=== PATIENT | female | born 1950 | race Caucasian/White ===

== ENCOUNTER → 2016-07-07 | Outpatient (CLI) | payer MEDICARE, OTHER ==
--- NOTE | 2016-07-07 15:59 | EST ---
DATE OF SERVICE: 07/07/2016 AGE: 66Y SEX: F HT: 68 WT: 200 lbs. Protocol Bryant: Other: Stage: 1 Dur. of Exercise: 3:00 *Heart Rate Blood Pressure *Rest: 90 Rest: 178/66 * *Max. Achieved: 132 Maximum BP: 197/69 85% PMHR: 129 100% PMHR: 152 *METS: 4.6 INDICATIONS: Chest pain. MEDICATIONS: Naprosyn, Lisinopril, metformin, Neurontin. Patient was exercised for a total period of 3 minutes. A peak heart rate of 132 was achieved. Maximum blood pressure of 197/69 mmHg was noted. The test was terminated because patient got short of breath. Resting EKG shows normal sinus rhythm with normal MI interval and QRS duration and normal ST-T waves. No ST-segment depression suggestive of ischemia is noted. Patient did not complain of any anginal pain during the test. FINAL IMPRESSION: 1. This stress electrocardiogram is not suggestive of ischemia. 2. Patient's exercise tolerance is limited due to the symptoms of shortness of breath. 3. Patient did not complain of any anginal pain during the test.
--- NOTE | 2016-07-08 10:47 | MM ---
Reason for exam: screening (asymptomatic). Last mammogram was performed 1 year and 6 months ago. History: Patient is postmenopausal. Family history of breast cancer in daughter at age 37. Excisional biopsy of the left breast. Physical Findings: A clinical breast exam by your physician is recommended on an annual basis and results should be correlated with mammographic findings. MG 3D Screening Mammo W/Cad Bilateral CC and MLO view(s) were taken. Prior study comparison: January 12, 2015, bilateral MG screening mammo w CAD. December 26, 2013, bilateral MG screening mammo w CAD. October 05, 2012, bilateral digital screening mammo w/CAD. The breast tissue is heterogeneously dense. This may lower the sensitivity of mammography. Finding: There are typically benign round calcifications in both breasts. There is a chronic nodularity in the left breast. There is no discrete abnormality. ASSESSMENT: Benign, BI-RAD 2 RECOMMENDATION: Routine screening mammogram of both breasts in 1 year.
== END | disposition home or self-care (01) ==
LOC: RADMAMWWP 10:13
PROVIDERS: ATTEND Internal Medicine
DX: Z12.31 Encounter for screening mammogram for malignant neoplasm of breast (principal); R07.89 Other chest pain
CPT/HCPCS: 93017; 77063; G0202

== ENCOUNTER → 2016-08-04 | Outpatient (CLI) | payer MEDICARE, OTHER ==
[2016-08-04 11:21] LABS: ALT 23 U/L (9-52); AST 20 U/L (14-36); Alkaline Phosphatase 60 U/L (38-126); Anion Gap 9 mmol/L; Blood Urea Nitrogen 15 mg/dL (7-17); Calcium 9.8 mg/dL (8.4-10.2); Carbon Dioxide 25 mmol/L (22-30); Chloride 107 mmol/L (98-107); Cholesterol 173 mg/dL (<200); Glucose 118 mg/dL (74-99); HDL Cholesterol 51 mg/dL (40-60); Non-African American GFR(MDRD) >60 (>60 ml/min/1.73 sqM); Potassium 4.9 mmol/L (3.5-5.1); Sodium 141 mmol/L (137-145); Total Bilirubin 0.6 mg/dL (0.2-1.3); Total Protein 7.1 g/dL (6.3-8.2); Triglycerides 277 mg/dL (<150)
[2016-08-04 11:23] LABS: Basophils # (A) 0.1 k/uL (0-0.2); Basophils % (A) 1 %; CH 31.9; CHCM 32.6; Eosinophils # (A) 0.1 k/uL (0-0.7); Eosinophils % (A) 2 %; HCT 41.8 % (34.0-46.0); HDW 2.38; HGB 13.6 gm/dL (11.4-16.0); Luc # (Auto) 0.23; Luc % (Auto) 3; Lymphocytes # (A) 2.7 k/uL (1.0-4.8); Lymphocytes % (A) 37 %; MCH 31.8 pg (25.0-35.0); MCHC 32.4 g/dL (31.0-37.0); MCV 98.1 fL (80.0-100.0); Monocytes # (A) 0.6 k/uL (0-1.0); Monocytes % (A) 8 %; Neutrophils # (A) 3.6 k/uL (1.3-7.7); Neutrophils % (A) 49 %; RBC 4.27 m/uL (3.80-5.40); RDW 13.1 % (11.5-15.5); WBC 7.4 k/uL (3.8-10.6); WBC (Perox) 7.61
[2016-08-04 14:33] LABS: Hemoglobin A1C 5.7 % (4.2-6.1)
== END | disposition home or self-care (01) ==
LOC: LABWHC1 10:33
PROVIDERS: ATTEND Internal Medicine
DX: E11.65 Type 2 diabetes mellitus with hyperglycemia (principal); I10 Essential (primary) hypertension
CPT/HCPCS: 36415; 80053; 80061; 83036; 85025

== ENCOUNTER → 2016-08-12 | Outpatient (CLI) | payer MEDICARE, OTHER ==
--- NOTE | 2016-08-13 08:53 | WWHP ---
DATE OF DICTATION: 08/12/16. CHIEF COMPLAINT: Patient is here for her routine gynecologic exam. HPI: This is a 66-year-old G3, P3 with an LMP of 1992. The patient is without gynecologic complaints and denies any postmenopausal bleeding. Her last pelvic exam was about 4 years ago. PAST MEDICAL HISTORY: Type 2 diabetes. Chronic hypertension and chronic obstructive pulmonary disease. Dr. Enriquez is her primary care physician. MEDICATIONS: Glucophage XL 1 daily. Lisinopril 20 mg daily. Zocor 1 daily. Neurontin 600 mg daily. Percocet 1 daily p.r.n. for pain, albuterol inhaler p.r.n. ALLERGIES: No known drug allergies. PAST SURGICAL HISTORY: Colonoscopy x4 and her last one was in 2014. [place] sling procedure in 2013, left breast biopsy in the , appendectomy in the past. PAST OB HISTORY: 3 vaginal deliveries. 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 SOCIAL HISTORY: She smokes about 15 cigarettes per day and denies alcohol and drug use. She is and has been seeing somebody since about the 2014 and does live with him. She is infrequently sexually active. She does not work outside the home. FAMILY HISTORY: Daughter had breast cancer, son was quadriplegic after an accident. Mother had diabetes and renal cancer. She has 2 grandfathers who had colon cancer. REVIEW OF SYSTEMS: RESPIRATORY: She has occasional shortness of breath when she exerts herself. This is related to her COPD, denies cardiac or GI problems. She denies maltreatment or falling. : She continues to have problems with urinary incontinence especially with coughing and sneezing. Dr. Cueva is her urologist for this. PHYSICAL EXAM: Blood pressure 123/75. Height 5 foot 7-1/2inches. Weight 199 pounds. Temperature 98.5, pulse 64. This a well-developed, well-nourished white female who is alert and oriented x3 in no acute distress. HEENT is within normal limits. NECK: Supple without mass or thyromegaly. CHEST AND LUNGS: Clear to auscultation. HEART: Regular rate and rhythm. Breasts are without mass or discharge. Axillary exam is negative for adenopathy. BACK: Negative for CVA tenderness. ABDOMEN: Soft, nontender, without palpable masses. PELVIC EXAM: External genitalia reveals moderate atrophy without lesions. Cervix and vagina reveal mild to moderate atrophy without lesions. There is no significant prolapse at this time. The uterus is midposition, nongravid size and nontender. There are no palpable adnexal masses or tenderness. Rectovaginal exam is negative for mass or tenderness and is negative for occult blood. EXTREMITIES: Nontender. IMPRESSION: 1. A 66-year-old menopausal female with normal gynecologic exam. 2. Multiple medical problems. PLAN: 1. Pap smear was performed. 2. Self-breast examination was discussed. 3. Mammogram was done on 07/07/2016 and this was benign. This will be repeated in one year. 4. Osteoporosis prevention was discussed. 5. I have recommended bone density testing. She is declining at this time but states she will do this next year. 6. She does get flu shots in the fall. 7. She will return in one year.
== END | disposition home or self-care (01) ==
LOC: WWCWWP 13:51
PROVIDERS: ATTEND Obstetrics & Gynecology
DX: Z53.9 Procedure and treatment not carried out, unspecified reason (principal)

== ENCOUNTER → 2016-11-03 | Outpatient (CLI) | payer MEDICARE, OTHER ==
[2016-11-03 10:45] LABS: Basophils # (A) 0.1 k/uL (0-0.2); Basophils % (A) 1 %; CH 31.1; CHCM 32.7; Eosinophils # (A) 0.2 k/uL (0-0.7); Eosinophils % (A) 2 %; HCT 44.2 % (34.0-46.0); HDW 2.36; HGB 14.5 gm/dL (11.4-16.0); Luc # (Auto) 0.25; Luc % (Auto) 3; Lymphocytes # (A) 2.6 k/uL (1.0-4.8); Lymphocytes % (A) 33 %; MCH 31.2 pg (25.0-35.0); MCHC 32.7 g/dL (31.0-37.0); MCV 95.5 fL (80.0-100.0); Mean Platelet Volume 6.6; Monocytes # (A) 0.7 k/uL (0-1.0); Monocytes % (A) 9 %; Neutrophils # (A) 4.1 k/uL (1.3-7.7); Neutrophils % (A) 52 %; RBC 4.63 m/uL (3.80-5.40); RDW 13.6 % (11.5-15.5); WBC 7.9 k/uL (3.8-10.6); WBC (Perox) 8.18
[2016-11-03 11:22] LABS: Anion Gap 11 mmol/L; Blood Urea Nitrogen 13 mg/dL (7-17); Calcium 9.8 mg/dL (8.4-10.2); Carbon Dioxide 26 mmol/L (22-30); Chloride 106 mmol/L (98-107); Glucose 110 mg/dL (74-99); Non-African American GFR(MDRD) >60 (>60 ml/min/1.73 sqM); Potassium 4.8 mmol/L (3.5-5.1); Sodium 143 mmol/L (137-145)
[2016-11-03 12:17] LABS: Hemoglobin A1C 6.6 % (4.2-6.1)
== END | disposition home or self-care (01) ==
LOC: LABWHC1 10:13
PROVIDERS: ATTEND Internal Medicine
DX: E11.21 Type 2 diabetes mellitus with diabetic nephropathy (principal)
CPT/HCPCS: 36415; 80048; 83036; 85025

== ENCOUNTER → 2017-01-16 | Outpatient (CLI) | payer MEDICARE, OTHER ==
[2017-01-16 10:57] LABS: Anion Gap 12 mmol/L; Blood Urea Nitrogen 11 mg/dL (7-17); Carbon Dioxide 25 mmol/L (22-30); Chloride 104 mmol/L (98-107); Glucose 136 mg/dL (74-99); Non-African American GFR(MDRD) >60 (>60 ml/min/1.73 sqM); Potassium 4.6 mmol/L (3.5-5.1); Sodium 141 mmol/L (137-145)
[2017-01-16 12:38] LABS: Hemoglobin A1C 6.4 % (4.2-6.1)
== END | disposition home or self-care (01) ==
LOC: LABWHC1 10:14
PROVIDERS: ATTEND Internal Medicine
DX: E11.65 Type 2 diabetes mellitus with hyperglycemia (principal)
CPT/HCPCS: 36415; 80048; 83036

== ENCOUNTER → 2017-06-29 | Outpatient (CLI) | payer MEDICARE, OTHER ==
[2017-06-29 11:02] LABS: Anion Gap 12 mmol/L; Blood Urea Nitrogen 14 mg/dL (7-17); Calcium 9.7 mg/dL (8.4-10.2); Carbon Dioxide 26 mmol/L (22-30); Chloride 103 mmol/L (98-107); Glucose 149 mg/dL (74-99); Potassium 5.2 mmol/L (3.5-5.1); Sodium 141 mmol/L (137-145)
[2017-06-29 17:55] LABS: Hemoglobin A1C 6.2 % (4.0-6.0)
== END | disposition home or self-care (01) ==
LOC: LABWHC1 10:02
PROVIDERS: ATTEND Internal Medicine
DX: E11.65 Type 2 diabetes mellitus with hyperglycemia (principal)
CPT/HCPCS: 36415; 80048; 83036

== ENCOUNTER → 2018-01-11 | Outpatient (CLI) | payer MEDICARE ==
--- NOTE | 2018-01-11 19:10 | BD ---
EXAMINATION TYPE: Axial Bone Density DATE OF EXAM: 01/11/2018 COMPARISON: NONE CLINICAL HISTORY: 67-year-old female postmenopausal screening without HRT Height: 67 Weight: 208.2 FRAX RISK QUESTIONS: Alcohol (3 or more units per day): no Family History (Parent hip fracture): no Glucocorticoids (More than 3mos): no (Ex: prednisone, prednisolone, methylprednisolone, dexamethasone, and hydrocortisone). History of Fracture in Adulthood: no Secondary Osteoporosis: 1. Type 1 Diabetes: no 2. Hyperthyroidism: no 3. Menopause before 45: no 4. Malnutrition: no 5. Chronic liver disease: no Rheumatoid Arthritis: no Current Tobacco Use: yes RISK FACTORS HISTORY OF: Family History of Osteoporosis: no Active: sometimes Diet low in dairy products/other sources of calcium: no Postmenopausal woman: age 46 MEDICATIONS: diabetic meds, vitamins, cholesterol meds, bp meds Additional History: EXAM MEASUREMENTS: Bone mineral densitometry was performed using the [employer] System. Bone mineral density as measured about the Lumbar spine is: ----- L1-L4(G/cm2): 1.313 T Score Values are as follows: ----- L2: -0.3 ----- L3: 2.8 ----- L4: 2.4 ----- L1-L4: 1.1 Bone mineral density has: increased 16.1 % since study of: 09.29.2011 Bone mineral density about the R hip (g/cm2): 1.215 Bone mineral density about the L hip (g/cm2): 1.115 T Score values are as follows: -----R Neck: 1.3 -----L Neck: 0.6 -----R Total: 1.4 -----L Total: 1.2 Bone mineral density has: decreased -0.3 % since study of: 09.29.2011 IMPRESSION: Normal (Values between +1 and -1 indicate normal bone mass). Consider repeating this study in 5 year s or sooner if there is some new clinical indication. NOTE: T-SCORE=SD OF THE YOUNG ADULT MEAN.
--- NOTE | 2018-01-12 10:27 | MM ---
Reason for exam: screening (asymptomatic). Last mammogram was performed 1 year and 6 months ago. History: Patient is postmenopausal. Family history of breast cancer in daughter at age 37. Excisional biopsy of the left breast. Physical Findings: A clinical breast exam by your physician is recommended on an annual basis and results should be correlated with mammographic findings. MG 3D Screening Mammo W/Cad Bilateral CC and MLO view(s) were taken. Prior study comparison: July 07, 2016, bilateral MG 3d screening mammo w/cad. January 12, 2015, bilateral MG screening mammo w CAD. The breast tissue is heterogeneously dense. This may lower the sensitivity of mammography. No suspicious abnormality. Post surgical change on the left. No significant changes when compared with prior studies. ASSESSMENT: Benign, BI-RAD 2 RECOMMENDATION: Routine screening mammogram of both breasts in 1 year.
== END | disposition home or self-care (01) ==
LOC: RADMAMWWP 09:19
PROVIDERS: ATTEND Obstetrics & Gynecology
DX: Z12.31 Encounter for screening mammogram for malignant neoplasm of breast (principal); Z13.820 Encounter for screening for osteoporosis; Z78.0 Asymptomatic menopausal state
CPT/HCPCS: 77063; 77067; 77080

== ENCOUNTER → 2018-01-19 | Outpatient (CLI) | payer MEDICARE ==
--- NOTE | 2018-01-19 14:23 | XR ---
EXAMINATION TYPE: XR chest 2V DATE OF EXAM: 01/19/2018 COMPARISON: Prior chest x-ray dated 02/03/2015 HISTORY: Cough TECHNIQUE: Frontal and lateral views of the chest are obtained. FINDINGS: There is no focal air space opacity, pleural effusion, or pneumothorax seen. The cardiac silhouette size is within normal limits. Patient is rotated. There is a spinal curvature. The aorta is dense. The osseous structures are intact. IMPRESSION: No acute cardiopulmonary process.
--- NOTE | 2018-01-19 14:34 | XR ---
Left shoulder HISTORY: Left shoulder pain 3 views of the left shoulder There is hypertrophic change at the acromioclavicular joint. Bone mineralization and alignment are ma intained. Left lung apex as visualized is normal. IMPRESSION: No fracture or dislocation. Acromioclavicular joint arthropathy
--- NOTE | 2018-01-19 15:05 | XR ---
Right foot HISTORY: Right foot pain 3 views of the right foot No comparisons There is degenerative change at the first metatarsophalangeal joint. Alignment and bone mineralizatio n are maintained. No fracture or dislocation. There is a plantar calcaneus spur, enthesophyte at the insertion of the Achilles tendon. Soft tissue swelling suspected. Spurring also present at the intert arsal joints with subchondral sclerosis. IMPRESSION: Osteoarthritis.
--- NOTE | 2018-01-19 15:07 | XR ---
Right ankle HISTORY: Right ankle pain 3 views of the right ankle Correlation right foot same date There is a plantar calcaneal spur. Enthesophyte present at the insertion of the Achilles tendon. No f racture or dislocation. Degenerative changes are present at the intertarsal joints. Soft tissue swell ing is noted. Question small ossific density well-corticated the level of the medial malleolus, findi ngs felt likely to be chronic, possibly due to old trauma. IMPRESSION: Soft tissue swelling. Degenerative changes. Chronic changes as described. Additional find ings above.
== END | disposition home or self-care (01) ==
LOC: RADXRMAIN 12:31
PROVIDERS: ATTEND Internal Medicine
DX: J06.9 Acute upper respiratory infection, unspecified (principal); M12.812 Other specific arthropathies, not elsewhere classified, left shoulder; M19.071 Primary osteoarthritis, right ankle and foot
CPT/HCPCS: 71046

== ENCOUNTER → 2018-08-04 | Outpatient (CLI) | payer MEDICARE, OTHER ==
[2018-08-04 14:22] LABS: Blood Urea Nitrogen 17 mg/dL (7-17)
--- NOTE | 2018-08-04 15:13 | CT ---
EXAMINATION TYPE: CT chest w con DATE OF EXAM: 08/04/2018 COMPARISON: None HISTORY: Cardiac murmur, uspecified. Cough. Pt hx COPD CT DLP: 388.40 mGycm Automated exposure control for dose reduction was used. CONTRAST: CT scan of the chest is performed with IV Contrast, patient injected with 100 mL of Isovue 300. FINDINGS: LUNGS: The lungs are grossly clear, there is no concerning parenchymal mass or nodule identified. Dep endent atelectasis right lung base. There is no pleural effusion or pneumothorax seen. The tracheob ronchial tree is patent. MEDIASTINUM: There are no greater than 1 cm hilar or mediastinal lymph nodes. No pericardial effusi on is seen. Ectasia of the ascending thoracic aorta measuring 3.9 cm. Scattered atheromatous changes noted. Coronary artery calcifications seen. Mild cardiomegaly. UPPER ABDOMEN: No significant abnormality appreciated. OTHER: No additional significant abnormality is seen. IMPRESSION: Ectasia of the ascending thoracic aorta measuring 3.9 cm. Scattered atheromatous changes noted. Coron miguel angel artery calcifications seen. Mild cardiomegaly.
== END | disposition home or self-care (01) ==
LOC: RADECHMAIN 13:05
PROVIDERS: ATTEND Internal Medicine
DX: I77.810 Thoracic aortic ectasia (principal); I25.10 Atherosclerotic heart disease of native coronary artery without angina pectoris; I51.7 Cardiomegaly; R05 Cough
CPT/HCPCS: 93306; 82565; 84520; 71260; 36415; Q9967

== ENCOUNTER 2018-09-15 08:22 | Day surgery (SDC) | payer MEDICARE, OTHER ==
[2018-09-10 12:00] VITALS: BMI 33.0
[~2018-09-15 08:22] MED LIST: ALPRAZolam 0.25 MG TAB PO PRN; ALPRAZolam 0.5 MG TAB PO PRN; ASPIRIN 325 MG TAB PO STA; ATORVASTATIN 80 MG TAB PO STA; NITROGLYCERIN SL TABS 0.4 MG TAB SUBLINGUAL PRN; SODIUM CHLORIDE 0.9% 1,000 ML in EMPTY BAG 1 BAG IV ONE
[2018-09-15] MEDS ORDERED: LIDOCAINE 1% INJ 10MG/ML (20 ML MDV) ONE (09:04)
[2018-09-15 09:26] LABS: Glucose,Whole Blood 243 mg/dL (75-99)
[2018-09-15] MEDS ORDERED: SODIUM CHLORIDE 0.9% 1,000 ML IV ONE (09:40)
[2018-09-15] MEDS ORDERED: fentaNYL (PF) 50 MCG/ML 2 ML AMP IV ONE (09:50)
[2018-09-15] MEDS ORDERED: HYDROmorphone 1 MG/ML 1 ML SYRINGE IVP ONE ×2 (10:02→10:55)
[2018-09-15] MEDS: MIDAZOLAM (PF) 2 MG/2 ML VIAL IVP ONE ×2 (10:36→10:49)
[2018-09-15] MEDS ORDERED: LIDOCAINE 1% INJ 10MG/ML (20 ML MDV) SQ ONE ×2 (10:54)
[2018-09-15] MEDS: VERAPAMIL SYRINGE (5 MG/10 ML) INTRAARTER ONE ×2 (10:56→11:45)
[2018-09-15] MEDS ORDERED: HEPARIN SODIUM 1,000 UN/ML (10ML VL) IV ONE ×2 (10:58→11:46)
[2018-09-15] MEDS: NITROGLYCERIN 1000MCG/10ML SYRINGE INTRACORON ONE ×2 (11:09→11:43)
[2018-09-15] MEDS ORDERED: MIDAZOLAM (PF) 2 MG/2 ML VIAL IVP ONE (11:13)
[2018-09-15] MEDS ORDERED: IOHEXOL 350 MG/ML 125ML BOTTLE INJ ONE ×2 (11:28→11:46)
[2018-09-15] MEDS ORDERED: ADENOSINE 90 MG in SODIUM CHLORIDE 0.9% 60 ML IVP ONE (11:32)
[2018-09-15] MEDS ORDERED: CLOPIDOGREL 75 MG TAB PO ONE (11:43)
[2018-09-15] MEDS ORDERED: MAG HYDROX/AL HYDROX/SIMETH 30 ML CUP PO PRN (12:13)
[2018-09-15] MEDS ORDERED: ZOLPIDEM 5 MG TAB PO PRN (12:13)
[2018-09-15] MEDS ORDERED: NITROGLYCERIN SL TABS 0.4 MG TAB SUBLINGUAL PRN (12:13)
[2018-09-15] MEDS ORDERED: RX INFO: IV CONTRAST WAS GIVEN 1 EACH MISC MISCELLANE PRN (12:13)
[2018-09-15] MEDS ORDERED: ATROPINE SULFATE 0.1 MG/ML 10ML SYRINGE IV PRN (12:13)
[2018-09-15] MEDS ORDERED: SODIUM CHLORIDE 0.9% 1,000 ML IV SCH (12:15)
[2018-09-15 12:41] LABS: Glucose,Whole Blood 168 mg/dL (75-99)
--- NOTE | 2018-09-15 15:04 | CC ---
CARDIAC CATHETERIZATION REPORT DATE OF SERVICE: September 15, 2018 PERFORMING PHYSICIAN: Corbin Howard MD, enrichment assistant. PROCEDURE PERFORMED: 1. Selective right and left coronary angiogram. 2. Fractional flow reserve, FFR of the right coronary artery. 3. Successful stenting of the proximal right coronary artery using 3.5 x 15 mm Xience HAWA with an excellent angiographic results and reduction of stenosis from 70% to 0%. INDICATION: This is a 68-year-old female patient with diabetes, hypertension, dyslipidemia, and chronic obstructive pulmonary disease, who was experiencing symptoms of shortness of breath with exertion. She was seen by Dr. Fletcher her women's lacrosse coach who referred the patient to see me because he thinks that the shortness of breath is out of proportion to the COPD. The patient underwent a CT scan which showed evidence of coronary calcifications. Her symptoms of chest pain and shortness of breath both were exertional. Because of that, a heart catheterization was advised. APPROACH: Right radial artery. COMPLICATION: None. LEVEL OF SEDATION: Moderate with sedation length of 53 minutes. PROCEDURE DESCRIPTION: After obtaining an informed consent, the patient was brought to the cardiac medical laboratory manager. The right radial artery was cannulated using micropuncture technique, the micropuncture wire passed easily. Then I placed a 6-Welsh sheath in the right radial artery. After that I gave the patient 2 mg of verapamil IA and 10,000 units of heparin IV. Selective right and left coronary angiogram performed using JR4 and JL3.5 catheters. Left heart catheterization was performed using the JR4 catheter. The diagnostic procedure was completed after that. Subsequently, the FFR of the RCA and subsequently stenting of the RCA. Please see a separate paragraph for that. SELECTIVE CORONARY ANGIOGRAM: 1. Right coronary artery is a large caliber vessel and is a dominant vessel. The proximal RCA has a lesion on a bend appeared to be in the range of 60%. We did an FFR on it and that came in to be ischemic. The mid RCA and distal RCA appeared to be angiographically normal. 2. The left main is angiographically normal. The left main is a long left main. The ostial left main appeared to be diseased in the range of 30%. The left main bifurcates into the left circumflex and left anterior descending artery. 3. The left circumflex is a large caliber vessel. It is a nondominant vessel. The left circumflex is angiographically normal and in the proximal portion gives rise into a large OM branch which seems to be normal. 4. The LAD: The proximal LAD, mid LAD and distal LAD appeared to be angiographically normal besides being calcified. The LAD in the proximal in the midportion gives rise into 2 diagonal branches, both appeared to be angiographically normal. HEMODYNAMICS: The left ventricular end-diastolic pressure was about 10-12 mmHg without significant gradient across aortic valve. FFR OF THE RCA AND PCI OF THE RCA: Anticoagulation was continued using the heparin with the ACT checked prior to insertion of the wire. I did give the patient additional 3000 units of heparin throughout the procedure. After zeroing the Doppler wire and equalizing between the Doppler wire and the guiding catheter which was JR4 guiding catheter, we did an FFR per IV adenosine infusion. As a matter of fact, we did FFR and that came in to be ischemic. That confirmed by FFR as well. After that I did balloon angioplasty using 3.5 x 12 mm balloon before I stented the RCA in the proximal portion using 3.5 x 15 mm Xience HAWA where the stent was positioned under fluoroscopy guidance and deployed under 16 atmospheres for 20 seconds with the following angiogram showing good angiographic results. The procedure at that point was completed without any complication. CONCLUSION: 1. Intermittent episodes of exertional chest discomfort and shortness of breath. 2. Mild to moderate disease involving the ostial left main coronary artery appeared to be in the range of 30-40 percent only. 3. Intermediate to severe disease involving the proximal right coronary artery. The FFR came in to be ischemic. I did perform successful stenting of the proximal right coronary artery. 4. Normal left anterior descending coronary artery and left circumflex coronary arteries. POSTPROCEDURE MANAGEMENT: 1. Dual anti-platelet therapy. 2. Risk factors modifications. 3. Aggressive cholesterol control. 4. Follow up with the patient. MMODL / IJN: [id number] /
--- NOTE | 2018-09-15 15:10 | LTR ---
DATE OF SERVICE: September 15, [address] Enriquez: Ms. Halie Vizcarra underwent a heart catheterization today and that revealed severe disease involving the right coronary artery. I did perform successful stenting of the right coronary artery with good angiographic results and without any complication. I want to thank you for allowing us to participate in her care and please do not hesitate to call if you have any questions or concerns. Sincerely, MMODL / IJN: [id number] /
[2018-09-15 17:02] LABS: Glucose,Whole Blood 239 mg/dL (75-99)
[2018-09-15 21:17] LABS: Glucose,Whole Blood 264 mg/dL (75-99)
[2018-09-16 06:14] LABS: Glucose,Whole Blood 222 mg/dL (75-99)
[2018-09-16 06:30] LABS: Basophils # (A) 0.1 k/uL (0-0.2); Basophils % (A) 1 %; Eosinophils # (A) 0.1 k/uL (0-0.7); Eosinophils % (A) 2 %; HCT 28.7 % (34.0-46.0); Hypochromasia Marked; Lymphocytes # (A) 2.4 k/uL (1.0-4.8); Lymphocytes % (A) 37 %; MCH 28.1 pg (25.0-35.0); MCHC 31.4 g/dL (31.0-37.0); MCV 89.5 fL (80.0-100.0); Mean Platelet Volume 7.8; Monocytes # (A) 0.6 k/uL (0-1.0); Monocytes % (A) 10 %; Neutrophils # (A) 2.9 k/uL (1.3-7.7); Neutrophils % (A) 45 %; Platelet Count 291 k/uL (150-450); Poikilocytosis Slight; RBC 3.21 m/uL (3.80-5.40); RDW 14.6 % (11.5-15.5); WBC 6.4 k/uL (3.8-10.6)
[2018-09-16 06:35] LABS: African American GFR (CKD) >90 (>60 ml/min/1.73 sqM); Anion Gap 6 mmol/L; Blood Urea Nitrogen 11 mg/dL (7-17); Calcium 8.4 mg/dL (8.4-10.2); Carbon Dioxide 24 mmol/L (22-30); Chloride 105 mmol/L (98-107); Glucose 191 mg/dL (74-99); Potassium 4.6 mmol/L (3.5-5.1); Sodium 135 mmol/L (137-145)
[2018-09-16] MEDS ORDERED: glipiZIDE 5 MG TAB PO SCH (07:30)
[2018-09-16] MEDS ORDERED: PANTOPRAZOLE 40 MG TABLET PO SCH (07:30)
[2018-09-16 08:24] VITALS: BP 132/63; PULSE 78; RESP 16; TEMP 98.8
[2018-09-16] MEDS ORDERED: LOSARTAN 50 MG TAB PO SCH (09:00)
[2018-09-16] MEDS ORDERED: KRILL PO SCH (09:00)
[2018-09-16] MEDS ORDERED: OMEGA PO SCH (09:00)
[2018-09-16] MEDS ORDERED: LIPIDS PO SCH (09:00)
[2018-09-16] MEDS ORDERED: DHA PO SCH (09:00)
[2018-09-16] MEDS ORDERED: ATORVASTATIN 20 MG TAB PO SCH (09:00)
[2018-09-16] MEDS ORDERED: EPA PO SCH (09:00)
[2018-09-16] MEDS ORDERED: ASPIRIN 81 MG PO SCH (09:00)
[2018-09-16] MEDS ORDERED: CLOPIDOGREL 75 MG TAB PO SCH (12:00)
--- NOTE | 2018-09-16 20:47 | DS ---
DISCHARGE SUMMARY DATE OF ADMISSION: September 15, 2018. DATE OF DISCHARGE: September 16, 2018 BRIEF HISTORY: This is a 68-year-old female patient who was sent for further evaluation of shortness of breath and chest discomfort with exertion. She underwent a CT scan of the chest which revealed calcified coronaries. She underwent a heart catheterization yesterday which revealed intermediate to severe disease involving the right coronary artery where an FFR was applied and came in to be ischemic. Because of that, she underwent stenting of the right coronary artery from right radial approach. On follow up with the patient today, she did have a good night's sleep. She is asymptomatic at this point. The right radial site looks good without any bruises or hematoma with good pulse. The patient is going to be discharged home on dual anti-platelet therapy and I will follow up with the patient in a week in the office. MADELEINE / BAUDILIO: [id number] /
== END 2018-09-16 10:07 | disposition home or self-care (01) ==
LOC: CATHCVL 08:22 → 3SCARD 14:37 → CATHCVL 09-16 10:07
PROVIDERS: ATTEND Internal Medicine Interventional Cardiology
DX: I25.10 Atherosclerotic heart disease of native coronary artery without angina pectoris (principal); I25.84 Coronary atherosclerosis due to calcified coronary lesion; I10 Essential (primary) hypertension; E78.00 Pure hypercholesterolemia, unspecified; E11.9 Type 2 diabetes mellitus without complications; E78.5 Hyperlipidemia, unspecified; J44.9 Chronic obstructive pulmonary disease, unspecified; Z82.49 Family history of ischemic heart disease and other diseases of the circulatory system; F17.210 Nicotine dependence, cigarettes, uncomplicated; Z79.84 Long term (current) use of oral hypoglycemic drugs; Z79.82 Long term (current) use of aspirin; Z79.899 Other long term (current) drug therapy
CPT/HCPCS: 93571; 93458; 85347; 80048; 85025; C9600; C1887; C1725; C1769 ×2; C1874; C1894; J2001; J3010; J1644; J1170; J0153; Q9967; J2250

== ENCOUNTER → 2018-12-01 | Day surgery (SDC) | payer MEDICARE, OTHER ==
[2018-11-23 15:57] VITALS: BMI 32.8
[~2018-12-01] MED LIST changes: -ALPRAZolam 0.5 MG TAB PO PRN; -ATORVASTATIN 80 MG TAB PO STA; +HEPARIN SODIUM 1,000 UN/ML (10ML VL) IV ONE; +INSULIN ASPART (NovoLOG) 100 UNIT/ML VIAL SQ ONE; +IOPAMIDOL-370 100ML BTL INJ ONE; +IOPAMIDOL-370 50ML BTL INJ ONE; +LIDOCAINE 1% INJ 10MG/ML (20 ML MDV) SQ ONE; +MIDAZOLAM (PF) 2 MG/2 ML VIAL IV ONE; -NITROGLYCERIN SL TABS 0.4 MG TAB SUBLINGUAL PRN; +SODIUM CHLORIDE 0.9% 1,000 ML IV SCH; +VERAPAMIL SYRINGE (5 MG/10 ML) INTRAARTER ONE
[2018-12-01 07:10] LABS: Glucose,Whole Blood 238 mg/dL (75-99)
[2018-12-01 07:16] VITALS: TEMP 99.1
[2018-12-01 07:41] LABS: Anisocytosis Slight; Basophils # (A) 0.1 k/uL (0-0.2); Basophils % (A) 1 %; Eosinophils # (A) 0.2 k/uL (0-0.7); Eosinophils % (A) 3 %; HCT 29.2 % (34.0-46.0); HGB 8.3 gm/dL (11.4-16.0); Hypochromasia Marked; Lymphocytes # (A) 2.4 k/uL (1.0-4.8); Lymphocytes % (A) 34 %; MCH 21.6 pg (25.0-35.0); MCHC 28.5 g/dL (31.0-37.0); MCV 75.8 fL (80.0-100.0); Mean Platelet Volume 7.6; Microcytosis Slight; Monocytes # (A) 0.7 k/uL (0-1.0); Monocytes % (A) 10 %; Neutrophils # (A) 3.4 k/uL (1.3-7.7); Neutrophils % (A) 48 %; Platelet Count 358 k/uL (150-450); Poikilocytosis Moderate; RBC 3.86 m/uL (3.80-5.40); RDW 17.5 % (11.5-15.5)
[2018-12-01] MEDS: VERAPAMIL SYRINGE (5 MG/10 ML) INTRAARTER ONE ×2 (08:20→08:35)
--- NOTE | 2018-12-01 09:14 | AN ---
ANGIOGRAPHY REPORT DATE OF SERVICE: December 01, 2018 PERFORMING PHYSICIAN: Corbin Howard MD, application counselor. PROCEDURE PERFORMED: 1. An abdominal aortogram. 2. Bilateral lower extremities runoff. INDICATION: This is a 68-year-old female patient with coronary artery disease as well as hypertension and dyslipidemia who was experiencing bilateral lower extremities intermittent claudication and underwent an arterial duplex study which revealed moderate femoral-popliteal disease. Because of the continuous of her symptoms, I did recommend proceeding with aortogram with runoff. APPROACH: Right radial artery. COMPLICATION: None. LEVEL OF SEDATION: Moderate with sedation length of 23 minutes. PROCEDURE DESCRIPTION: After obtaining an informed consent, the patient was brought to cardiac sugar laboratory assistant. The right radial artery was cannulated using micropuncture technique and a micropuncture wire passed easily then I placed a 4-Luxembourgish sheath. I gave the patient 10,000 units of heparin IV and 2 mg of verapamil IA. After that, I did an abdominal aortogram and bilateral lower extremities runoff using 4-Luxembourgish pigtail catheter which was placed initially at the level of the renal arteries then it was advanced into above the bifurcation of the aorta to right and left common iliac arteries. The procedure was completed without any complication. SELECTIVE PERIPHERAL ANGIOGRAM: 1. The aorta is angiographically normal. 2. The Common Iliac Arteries: Both appear to be angiographically normal. 3. Internal Iliac Arteries: Both are angiographically normal. 4. Common External Iliac Arteries: Both are angiographically normal. 5. Femoral Arteries: Both are angiographically normal. 6. Profunda: Both are patent. 7. SFA: Both are angiographically normal. 8. Popliteals: Both are angiographically normal. 9. Below the knee: There are 3 vessels runoff below the knee bilaterally. CONCLUSION: Normal bilateral arterial angiogram of the lower extremities. POSTPROCEDURE MANAGEMENT: Medical treatment. MMODL / IJN: [id number] /
--- NOTE | 2018-12-01 09:44 | LTR ---
December 01, 2018 Re: Halie Zackery Dear. Dr. Enriquez: Ms. Halie Vizcarra underwent today an aortogram with runoff and that revealed normal lower extremities arterial angiogram. I want to thank you for allowing me to participate in her care and please do not hesitate to call if you have any question. Sincerely, MD MADELEINE Casarez / BAUDILIO: [id number] /
[2018-12-01 10:27] VITALS: RESP 16
--- NOTE | 2018-12-01 11:22 | IR ---
EXAMINATION TYPE: IR angio abdominal w runoff DATE OF EXAM: 12/01/2018 COMPARISON: NONE HISTORY: Fluoroscopy time. Fluoroscopy was provided to the referring clinician.
[2018-12-01 15:17] VITALS: BP 162/66; PULSE 83
== END ==
LOC: CATHCVL 06:23
PROVIDERS: ATTEND Internal Medicine Interventional Cardiology
DX: I73.9 Peripheral vascular disease, unspecified (principal); I25.10 Atherosclerotic heart disease of native coronary artery without angina pectoris; I10 Essential (primary) hypertension; E11.9 Type 2 diabetes mellitus without complications; E78.5 Hyperlipidemia, unspecified; F17.210 Nicotine dependence, cigarettes, uncomplicated; Z95.5 Presence of coronary angioplasty implant and graft; Z79.84 Long term (current) use of oral hypoglycemic drugs; Z79.82 Long term (current) use of aspirin; Z79.02 Long term (current) use of antithrombotics/antiplatelets; Z79.899 Other long term (current) drug therapy; Z82.49 Family history of ischemic heart disease and other diseases of the circulatory system
CPT/HCPCS: 36200; 75625; 75716; 85025; C1769 ×6; C1887; C1894; J2001; J1644; Q9967 ×2; J2250

== ENCOUNTER → 2019-01-26 | Outpatient (CLI) | payer MEDICARE, OTHER ==
--- NOTE | 2019-01-28 11:51 | MM ---
Reason for exam: screening (asymptomatic). Last mammogram was performed 1 year ago. History: Patient is postmenopausal and history of other cancer. Family history of breast cancer in daughter at age 37. Excisional biopsy of the left breast. Physical Findings: A clinical breast exam by your physician is recommended on an annual basis and results should be correlated with mammographic findings. MG 3D Screening Mammo W/Cad Bilateral CC, MLO, and XCCL view(s) were taken. Prior study comparison: January 11, 2018, bilateral MG 3d screening mammo w/cad. July 07, 2016, bilateral MG 3d screening mammo w/cad. There are scattered fibroglandular densities. There is no discrete abnormality. No significant changes when compared with prior studies. ASSESSMENT: Negative, BI-RAD 1 RECOMMENDATION: Routine screening mammogram of both breasts in 1 year.
== END | disposition home or self-care (01) ==
LOC: RADMAMWWP 09:16
PROVIDERS: ATTEND Internal Medicine
DX: Z12.31 Encounter for screening mammogram for malignant neoplasm of breast (principal)
CPT/HCPCS: 77063; 77067

== ENCOUNTER → 2019-06-01 | Outpatient (CLI) | payer MEDICARE, OTHER ==
[2019-06-01 10:13] LABS: Basophils % (A) 1 %; Eosinophils # (A) 0.2 k/uL (0-0.7); Eosinophils % (A) 3 %; HCT 42.3 % (34.0-46.0); HGB 13.1 gm/dL (11.4-16.0); Hypochromasia Slight; Lymphocytes # (A) 2.1 k/uL (1.0-4.8); Lymphocytes % (A) 33 %; MCV 93.7 fL (80.0-100.0); Mean Platelet Volume 7.3; Monocytes # (A) 0.5 k/uL (0-1.0); Monocytes % (A) 8 %; Neutrophils # (A) 3.5 k/uL (1.3-7.7); Neutrophils % (A) 53 %; Platelet Count 280 k/uL (150-450); RBC 4.52 m/uL (3.80-5.40); RDW 13.3 % (11.5-15.5); WBC 6.5 k/uL (3.8-10.6)
[2019-06-01 18:01] LABS: African American GFR (CKD) 86.6 (60.0-200.0); Anion Gap 9.8 mmol/L (4.00-12.00); Carbon Dioxide 23.2 mmol/L (21.6-31.8); Non-African American GFR(CKD) 74.7 (60.0-200.0); Potassium 4.4 mmol/L (3.5-5.5)
[2019-06-01 19:21] LABS: Hemoglobin A1C 8.4 % (4.0-6.0)
== END | disposition home or self-care (01) ==
LOC: LABWHC1 09:20
PROVIDERS: ATTEND Internal Medicine
DX: E11.65 Type 2 diabetes mellitus with hyperglycemia (principal)
CPT/HCPCS: 36415; 80048; 83036; 85025

== ENCOUNTER → 2019-06-02 | Day surgery (SDC) | payer MEDICARE, OTHER ==
[2019-05-31 10:25] VITALS: BMI 33.6
[~2019-06-02] MED LIST changes: -ALPRAZolam 0.25 MG TAB PO PRN; -ASPIRIN 325 MG TAB PO STA; -HEPARIN SODIUM 1,000 UN/ML (10ML VL) IV ONE; -INSULIN ASPART (NovoLOG) 100 UNIT/ML VIAL SQ ONE; -IOPAMIDOL-370 100ML BTL INJ ONE; -IOPAMIDOL-370 50ML BTL INJ ONE; +LACTATED RINGERS 1,000 ML IV SCH; +LIDOCAINE 1% (10MG/ML) FOR IV START INTRADERMA PRN; +LIDOCAINE 1% INJ 10MG/ML (20 ML MDV) ONE; -LIDOCAINE 1% INJ 10MG/ML (20 ML MDV) SQ ONE; -MIDAZOLAM (PF) 2 MG/2 ML VIAL IV ONE; +PROPOFOL 10 MG/ML 20 ML VIAL IV ONE; -SODIUM CHLORIDE 0.9% 1,000 ML IV SCH; -SODIUM CHLORIDE 0.9% 1,000 ML in EMPTY BAG 1 BAG IV ONE; -VERAPAMIL SYRINGE (5 MG/10 ML) INTRAARTER ONE
[2019-06-02 12:16] VITALS: RESP 16; TEMP 97
[2019-06-02 12:23] LABS: Glucose,Whole Blood 203 mg/dL (75-99)
--- NOTE | 2019-06-02 13:06 | P.OP ---
Date of Procedure: 06/02/19 Preoperative Diagnosis: Screening colonoscopy Postoperative Diagnosis: Rectal polyp Procedure(s) Performed: Colonoscopy with hot snare polypectomy Anesthesia: MAC Surgeon: Navi Kincaid Estimated Blood Loss (ml): 0 Condition: stable Disposition: PACU Description of Procedure: Patient is brought to the Endo suite placed in the left lateral decubitus position underwent sedation per department of anesthesia prepped and draped usual sterile fashion timeout performed correct patient correct procedure cor rect site was verified rectal exam was performed no gross abnormalities are noted the scope was passed from the rectum to the cecum with the slowly been withdrawn being sure to visualize all sarabia of the colon on the way out. There was a small rectal polyp noted this was removed via hot snare polypectomy scope was retroflexed in the rectum no other abnormalities are noted. Patient tolerated the procedure well no apparent complications patient will need a repeat colonoscopy in 5 years.
[2019-06-02 13:22] VITALS: BP 131/60; PULSE 77
== END | disposition home or self-care (01) ==
LOC: ORWHC2ENDO 11:41
PROVIDERS: ATTEND Student in an Organized Health Care Education/Training Program
DX: Z12.11 Encounter for screening for malignant neoplasm of colon (principal); D12.8 Benign neoplasm of rectum; Z86.010 Personal history of colon polyps; I25.10 Atherosclerotic heart disease of native coronary artery without angina pectoris; I10 Essential (primary) hypertension; E78.5 Hyperlipidemia, unspecified; J44.9 Chronic obstructive pulmonary disease, unspecified; F17.210 Nicotine dependence, cigarettes, uncomplicated; E11.9 Type 2 diabetes mellitus without complications; K21.9 Gastro-esophageal reflux disease without esophagitis; Z95.5 Presence of coronary angioplasty implant and graft; Z79.02 Long term (current) use of antithrombotics/antiplatelets; Z79.51 Long term (current) use of inhaled steroids; Z79.82 Long term (current) use of aspirin; Z79.84 Long term (current) use of oral hypoglycemic drugs; Z79.899 Other long term (current) drug therapy; Z85.828 Personal history of other malignant neoplasm of skin
CPT/HCPCS: 88305; 45385; J2001; J2704

== ENCOUNTER → 2020-03-21 | Outpatient (CLI) | payer MEDICARE, OTHER ==
--- NOTE | 2020-03-26 08:57 | MM ---
Reason for exam: screening (asymptomatic). Last mammogram was performed 1 year and 2 months ago. History: Patient is postmenopausal and history of other cancer. Family history of breast cancer in daughter at age 37. Excisional biopsy of the left breast. Physical Findings: A clinical breast exam by your physician is recommended on an annual basis and results should be correlated with mammographic findings. MG 3D Screening Mammo W/Cad Bilateral CC and MLO view(s) were taken. Prior study comparison: January 26, 2019, bilateral MG 3d screening mammo w/cad. January 11, 2018, bilateral MG 3d screening mammo w/cad. There are scattered fibroglandular densities. No significant changes when compared with prior studies. ASSESSMENT: Benign, BI-RAD 2 RECOMMENDATION: Routine screening mammogram of both breasts in 1 year.
== END | disposition home or self-care (01) ==
LOC: RADMAMWWP 10:48
PROVIDERS: ATTEND Family Medicine
DX: Z12.31 Encounter for screening mammogram for malignant neoplasm of breast (principal)
CPT/HCPCS: 77063; 77067

== ENCOUNTER → 2020-07-10 | Outpatient (CLI) | payer MEDICARE, OTHER ==
--- NOTE | 2020-07-10 14:28 | MR ---
EXAMINATION TYPE: MR shoulder LT wo con DATE OF EXAM: 07/10/2020 COMPARISON: Outside radiographs 07/03/2020 HISTORY: 70-year-old female with left shoulder pain TECHNIQUE: Multiplanar, multisequence imaging of the left shoulder is performed without contrast. FINDINGS: Markedly abnormal signal within the basilar portion of the long head biceps tendon. Intracapsular por tion remains appropriately situated along the bicipital groove. Heterogeneous signal and thickening of the subscapularis tendon. No discrete tear is identified. Marked heterogeneity of the supraspinatus tendon. Along the mid to posterior tendon insertion, there is a small articular sided tear at the footprint. Larger intrasubstance component to the tear delamin ating medially by 1.7 cm and measuring 1.4 cm AP. In addition, there is fraying along the anterior free edge of the supraspinatus tendon adjacent to th e rotator cuff interval. Mild fatty infiltration of the anterior half of the supraspinatus muscle belly. Moderate to severe degenerative change of the acromioclavicular joint with subchondral cystic change, joint space narrowing, capsular hypertrophy, and inferior spurring. Inferior spurring impinges onto the underlying myotendinous junction of the surgical status. The infraspinatus tendon appears intact. Mild effusion within the subacromial/subdeltoid bursa, more moderate anteriorly may have some mild lo culation. Degenerative signal within the superior labrum. No paralabral cyst. Physiologic glenohumeral joint fl uid. Overall glenohumeral joint articular cartilage is maintained. There are no Hill-Sachs deformity or os acromiale. Patchy red marrow is present and can be seen in the setting of anemia, obesity, smoking, and chronic disease. IMPRESSION: 1. Diffuse rotator cuff tendinosis. There is a small rim rent tear involving the mid to posterior sup raspinatus tendon footprint with a larger intrasubstance component delaminating medially measuring 1. 7 x 1.4 cm. 2. Additional fraying along the anterior free edge of the supraspinatus tendon. No full-thickness rot ator cuff tear. 3. Moderate to severe AC joint OA with inferior spurring contributing to subacromial impingement. Mil d bursal effusion likely reactive. 4. Severe tendinosis versus partial tear of the intracapsular portion of long head biceps tendon. 5. Degenerative superior labrum.
== END | disposition home or self-care (01) ==
LOC: RADMRIMAIN 11:04
PROVIDERS: ATTEND Orthopaedic Surgery
DX: M75.112 Incomplete rotator cuff tear or rupture of left shoulder, not specified as traumatic (principal); M19.012 Primary osteoarthritis, left shoulder; M67.814 Other specified disorders of tendon, left shoulder; M24.112 Other articular cartilage disorders, left shoulder

== ENCOUNTER 2020-08-30 07:55 | Day surgery (SDC) | payer MEDICARE, OTHER ==
[2020-08-28 15:48] VITALS: BMI 32.3
--- NOTE | 2020-08-29 19:10 | HP ---
HISTORY AND PHYSICAL REASON FOR ADMISSION: Surgery scheduled 08/30/2020 HISTORY OF PRESENT ILLNESS: Halie Vizcarra is a 70-year-old patient seen with progressive left shoulder pain. We discussed options for treatment. She elected to proceed with arthroscopy. Consent was obtained. PAST MEDICAL HISTORY: Hypertension, hyperlipidemia, omf-fqtcquq-vivvhqoup diabetes, gastroesophageal reflux disease. PAST SURGICAL HISTORY: Appendectomy. DAILY MEDICATIONS: Atorvastatin, glipizide, Lasix, losartan, Lyrica, metformin, metoprolol, omeprazole. ALLERGIES: None. SOCIAL HISTORY: Smokes 1 pack of cigarettes daily. PHYSICAL EVALUATION OF THE LEFT SHOULDER: Flexion is 80 degrees, abduction is 40 degrees. External rotation is 50 degrees with significant weakness. There is tenderness along the anterior lateral acromion and rotator cuff insertion site. Impingement positive at 90 degrees. Drop-arm sign is positive. Distal neurovascular exam is intact. Left shoulder radiographs revealed a type 2 acromion as well as acromioclavicular joint osteoarthritis. Left shoulder MRI revealed rotator cuff tendon tear, acromioclavicular joint osteoarthritis, impingement, partial long head biceps tendon tear. IMPRESSION: 1. Left shoulder impingement with rotator cuff tear. 2. Left shoulder acromioclavicular joint osteoarthritis. 3. Left shoulder partial long head biceps tendon tear. 4. Hypertension. 5. Znz-zmgzlbf-qtpwsesgk diabetes. PLAN: Left shoulder arthroscopy with subacromial decompression, arthroscopic rotator cuff repair, Miah procedure and debridement. Surgery scheduled 08/30/2020. MMODL / IJN: [id number] /
[~2020-08-30 07:55] MED LIST changes: +DEXAMETHASONE SOD PHOSPHATE 4 MG/ML 1 ML VIAL IV ONE; +HYDROmorphone 0.5 MG/0.5 ML SYRINGE IVP PRN; -LIDOCAINE 1% (10MG/ML) FOR IV START INTRADERMA PRN; -LIDOCAINE 1% INJ 10MG/ML (20 ML MDV) ONE; +MIDAZOLAM 2 MG/2 ML VIAL IV PRN; +ONDANSETRON 4 MG/2 ML VIAL IVP ONE; -PROPOFOL 10 MG/ML 20 ML VIAL IV ONE
[2020-08-30] MEDS ORDERED: LIDOCAINE 1% (10MG/ML) FOR IV START INTRADERMA ONE (08:40)
[2020-08-30 09:02] LABS: Glucose,Whole Blood 172 mg/dL (75-99)
[2020-08-30] MEDS ORDERED: PHENYLEPHRINE-0.9% NACL SYG 1,000 MCG/10 ML SYRINGE ONE (09:23)
[2020-08-30] MEDS ORDERED: ePHEDrine SULFATE/0.9% NACL/PF 50 MG/5 ML SYRINGE IV ONE (09:23)
[2020-08-30] MEDS ORDERED: LIDOCAINE 1% INJ 10MG/ML (20 ML MDV) ONE (09:23)
[2020-08-30] MEDS ORDERED: PROPOFOL 10 MG/ML 20 ML VIAL IV ONE (09:23)
[2020-08-30] MEDS ORDERED: SUCCINYLCHOLINE CHLORIDE 100 MG/5 ML SYR IV ONE (09:23)
[2020-08-30] MEDS ORDERED: hydrALAZINE HCL 20 MG/ML 1 ML VIAL ONE (09:23)
[2020-08-30] MEDS ORDERED: ROPIVACAINE 5 MG/ML 30 ML VIAL ONE (09:23)
[2020-08-30] MEDS ORDERED: DEXAMETHASONE SOD PHOSPHATE 4 MG/ML 1 ML VIAL ONE (09:23)
[2020-08-30 09:52] LABS: Anisocytosis Slight; Basophils # (A) 0.1 k/uL (0-0.2); Basophils % (A) 1 %; Eosinophils # (A) 0.1 k/uL (0-0.7); Eosinophils % (A) 1 %; HCT 30.2 % (34.0-46.0); HGB 8.8 gm/dL (11.4-16.0); Hypochromasia Marked; Lymphocytes # (A) 2.1 k/uL (1.0-4.8); Lymphocytes % (A) 29 %; MCH 21.2 pg (25.0-35.0); MCHC 29.2 g/dL (31.0-37.0); Mean Platelet Volume 6.8; Microcytosis Moderate; Monocytes # (A) 0.6 k/uL (0-1.0); Monocytes % (A) 8 %; Neutrophils # (A) 4.1 k/uL (1.3-7.7); Neutrophils % (A) 58 %; Platelet Count 317 k/uL (150-450); Poikilocytosis Slight; RBC 4.15 m/uL (3.80-5.40); RDW 17.4 % (11.5-15.5); WBC 7.1 k/uL (3.8-10.6)
[2020-08-30 09:55] LABS: MCV 72.7 fL (80.0-100.0)
[2020-08-30] MEDS ORDERED: LACTATED RINGERS 1,000 ML IV ONE (10:24)
[2020-08-30 10:49] VITALS: TEMP 98
--- NOTE | 2020-08-30 10:51 | P.OP ---
Date of Procedure: 08/30/20 Preoperative Diagnosis: Left shoulder impingement Postoperative Diagnosis: 1. Left shoulder rotator cuff tear 2. Left shoulder impingement 3. Left shoulder acromioclavicular joint osteoarthritis 4. Left shoulder partial long head biceps tendon tear 5. Left shoulder superficial labral tear Procedure(s) Performed: 1. Left shoulder arthroscopic rotator cuff repair 2. Left shoulder arthroscopic subacromial decompression 3. Left shoulder arthroscopic Miah procedure 4. Left shoulder arthroscopic biceps tenotomy 5. Left shoulder arthroscopic debridement labral tear Implants: 14.75 Arthrex swivel lock anchor Anesthesia: GETA, regional (Interscalene block) Surgeon: Tank Carter Tie Binder #1: Roque Koehler Estimated Blood Loss (ml): 11 Pathology: none sent Condition: stable Disposition: PACU Indications for Procedure: 70-year-old patient seen with progressive left shoulder pain. After treatment options were discussed, she elected to proceed with arthroscopy. Operative Findings: See description of procedure Description of Procedure: Patient underwent an interscalene block by department of anesthesia. The patient was then taken to the operative suite. The patient underwent a general anesthetic by the department of anesthesia. The patient was placed into a lateral position and secured. There was appropriate padding of the bony prominence. Left shoulder was then prepped and draped in normal sterile orthopedic fashion. We placed the extremity in 10 pounds of longitudinal traction. A posterior incision was now made for a posterior working portal site. The trocar and cannula were inserted into the glenohumeral joint. Arthroscopy was initiated. Spinal needle was now inserted anteriorly, to ascertain the anterior working portal site. An incision was now made in that area, a trocar was inserted followed by a probe. There was significant partial tearing long head biceps tendon. There was some superficial tearing of the anterior and marquez perior labrum. There were some mild grade 1 chondromalacia changes. I performed a arthroscopic biceps tenotomy. I debrided out the superficial labral tear. The residual labrum was probed and was found to be stable. Instruments were now removed from the glenohumeral joint. Utilizing the posterior working portal site, the trocar and cannula were inserted into the subacromial space. Arthroscopy initiated. I made an incision 2 fingerbreadths lateral to the acromion. I introduced my trocar followed by my ArthroCare ablator. I now began ablating thick subacromial bursal tissue, which exposed the undersurface of the anterior acromion. There was diminished subacromial space. There was a very prominent anterior acromion. A motorized bur was introduced and a subacromial decompression was performed. I also excised some osteophytes off the inferior aspect of the distal clavicle. The AC joint was visualized and noted to be fairly arthritic. The motorized bur was introduced in the anterior portal site and a Miah procedure was performed without difficulty, decompressing the AC joint nicely. I turned my attention to the rotator cuff. There was a 1.5 cm rotator cuff tear. I debrided the margins getting down to stable tendon tissue. I abraded the footprint with a motorized bur. I passed 3 everted mattress sutures through good bites of rotator cuff tendon. I punched a hole in the footprint area for insertion of an anchor. All 6 limbs of suture were now passed through the eyelet of a 4.75 Arthrex swivel lock anchor. I placed the eyelet into the pre-punch hole. I held in position while Roque THURMAN tensioned all sutures and deployed the anchor with good fixation noted. All residual suture limbs were now clipped. We had good compression of the tendon along the entire footprint. Instruments now removed from the portal sites. All portal sites were approximated with nylon suture. Sterile dressings were applied followed by a shoulder sling. Roque THURMAN assisted in this case. The patient was awakened, transferred to a bed, and taken to recovery in stable condition.
[2020-08-30 11:29] VITALS: RESP 20
[2020-08-30 11:39] LABS: Glucose,Whole Blood 187 mg/dL (75-99)
[2020-08-30 12:38] VITALS: BP 144/76; PULSE 80
--- NOTE | 2020-09-05 13:31 | P.ANPRN ---
Procedure Note - Anesthesia - Nerve Block Performed Left Interscalene Single Time Out Performed: Yes Date of Procedure: 08/30/20 Procedure Start Time: :10 Procedure Stop Time: :14 Location of Patient: PreOp Indication: Acute Post-Operative Pain, Requested by Surgeon Sedation Type: Sedate with meaningful contact maintained Preparation: Sterile Prep Position: Supine Needle Types: Pajunk Ultrasound used to visualize needle placement: Yes Ultrasound used to observe medication spread: Yes Blood Aspirated: Yes Pain Paresthesia on Injection Noted: Yes Resistance on Injection: Normal Image Stored and Saved: Yes Events: Uneventful and Well Tolerated (ropi .5% 20cc plus dexamethasone 4mg)
== END 2020-08-30 12:36 | disposition home or self-care (01) ==
LOC: OR 07:55
PROVIDERS: ATTEND Orthopaedic Surgery
DX: M75.102 Unspecified rotator cuff tear or rupture of left shoulder, not specified as traumatic (principal); M25.812 Other specified joint disorders, left shoulder; M19.012 Primary osteoarthritis, left shoulder; M94.212 Chondromalacia, left shoulder; S46.112A Strain of muscle, fascia and tendon of long head of biceps, left arm, initial encounter; S43.432A Superior glenoid labrum lesion of left shoulder, initial encounter; M25.712 Osteophyte, left shoulder; X58.XXXA Exposure to other specified factors, initial encounter; I10 Essential (primary) hypertension; I25.10 Atherosclerotic heart disease of native coronary artery without angina pectoris; J44.9 Chronic obstructive pulmonary disease, unspecified; E78.5 Hyperlipidemia, unspecified; E11.9 Type 2 diabetes mellitus without complications; R05 Cough; I73.9 Peripheral vascular disease, unspecified; I34.0 Nonrheumatic mitral (valve) insufficiency; K21.9 Gastro-esophageal reflux disease without esophagitis; F17.210 Nicotine dependence, cigarettes, uncomplicated; Z90.89 Acquired absence of other organs; Z98.890 Other specified postprocedural states; Z79.84 Long term (current) use of oral hypoglycemic drugs; Z79.899 Other long term (current) drug therapy; Z79.82 Long term (current) use of aspirin; Z82.49 Family history of ischemic heart disease and other diseases of the circulatory system; E55.9 Vitamin D deficiency, unspecified; E78.00 Pure hypercholesterolemia, unspecified
CPT/HCPCS: 64415; 76942; 84132; 85025; 29826; 29827; 29824; C1713; J2250; J0360; J1100; J0690; J2405; J2001; J2795; J2370; J0330; J2704

== ENCOUNTER → 2021-02-08 | Outpatient (CLI) | payer MEDICARE, OTHER ==
--- NOTE | 2021-02-09 01:43 | MR ---
EXAMINATION TYPE: MR shoulder LT wo con DATE OF EXAM: 02/08/2021 COMPARISON: 07/10/2020 HISTORY: Left shoulder pain that goes down arm since june 2020 and hasn't gone away since surgery Ju ne 2020 Multiplanar multiecho imaging of the left shoulder without contrast. There is widening of the AC joint space with increased fluid signal at the joint consistent with liga mentous old tear. The subscapularis tendon is intact. Biceps tendon appears intact. There is shoulder joint effusion. The glenoid yoselin appear intact. There is linear density in the greater tuberosity o f the humerus consistent with previous surgery. There is thickening and increased signal throughout t he supraspinatus tendon at the greater tuberosity and over the top of the humeral head. There is no r etraction. There is no evidence of a fracture. Glenoid appears intact. IMPRESSION: There is large rotator cuff tear with edema and thickening of the supraspinatus tendon. There are sma ll areas of full-thickness tear. No retraction. Shoulder joint effusion and subacromial effusion. Carmelina dence of old ligamentous tear with widening of the AC joint space. No subacromial impingement. Edema in the supraspinatus tendon is slightly improved compared to old exam.
== END | disposition home or self-care (01) ==
LOC: RADMRIMAIN 19:35
PROVIDERS: ATTEND Orthopaedic Surgery
DX: M75.112 Incomplete rotator cuff tear or rupture of left shoulder, not specified as traumatic (principal)

== ENCOUNTER → 2021-04-01 | Outpatient (CLI) | payer MEDICARE, OTHER ==
[2021-04-01 14:02] LABS: Potassium 4.6 mmol/L (3.5-5.1)
[2021-04-01 14:46] LABS: Anisocytosis Slight; Basophils # (A) 0.1 k/uL (0-0.2); Basophils % (A) 1 %; Eosinophils # (A) 0.2 k/uL (0-0.7); Eosinophils % (A) 3 %; HCT 26.8 % (34.0-46.0); HGB 7.5 gm/dL (11.4-16.0); Hypochromasia Marked; Lymphocytes # (A) 2.4 k/uL (1.0-4.8); Lymphocytes % (A) 27 %; MCH 21.5 pg (25.0-35.0); MCHC 28.1 g/dL (31.0-37.0); MCV 76.6 fL (80.0-100.0); Microcytosis Slight; Monocytes # (A) 0.7 k/uL (0-1.0); Monocytes % (A) 7 %; Neutrophils # (A) 5.5 k/uL (1.3-7.7); Neutrophils % (A) 61 %; Platelet Count 287 k/uL (150-450); Poikilocytosis Moderate; RDW 17.6 % (11.5-15.5)
== END | disposition home or self-care (01) ==
LOC: LABPAT 11:58
PROVIDERS: ATTEND Orthopaedic Surgery
DX: Z01.818 Encounter for other preprocedural examination (principal); I49.8 Other specified cardiac arrhythmias; M75.42 Impingement syndrome of left shoulder
CPT/HCPCS: 80051; 85025; 93005

== ENCOUNTER → 2021-04-19 | Outpatient (CLI) | payer MEDICARE, OTHER ==
[2021-04-19 12:54] LABS: Anisocytosis Slight; HCT 28.5 % (34.0-46.0); HGB 7.8 gm/dL (11.4-16.0); Hypochromasia Marked; MCH 19.7 pg (25.0-35.0); MCHC 27.4 g/dL (31.0-37.0); MCV 71.9 fL (80.0-100.0); Mean Platelet Volume 7.8; Microcytosis Marked; Platelet Count 293 k/uL (150-450); Poikilocytosis Moderate; RBC 3.95 m/uL (3.80-5.40); RDW 19.5 % (11.5-15.5); WBC 6.6 k/uL (3.8-10.6)
[2021-04-19 13:30] LABS: Lymphocytes # (M) 1.78 k/uL (1.0-4.8); Nucleated Red Blood Cells 0 /100 WBC (0-0)
[2021-04-19 13:33] LABS: Basophils # (M) 0.13 k/uL (0-0.2); Monocytes # (M) 0.26 k/uL (0-1.0); Neutrophils # (M) 4.22 k/uL (1.3-7.7); Neutrophils % (M) 64 %; Total Cells Counted 200
[2021-04-19 13:34] LABS: Mixed Population RBC Present; Polychromasia Present
== END | disposition home or self-care (01) ==
LOC: LABPAT 11:22
PROVIDERS: ATTEND Orthopaedic Surgery
DX: D64.9 Anemia, unspecified (principal)
CPT/HCPCS: 36415; 85025

== ENCOUNTER 2021-07-31 07:34 | Day surgery (SDC) | payer MEDICARE, OTHER ==
[2021-07-29 18:03] VITALS: BMI 30.7
--- NOTE | 2021-07-30 14:41 | HP ---
HISTORY AND PHYSICAL DATE OF SURGERY: 07/31/2021 Halie Vizcarra is a 71-year-old patient seen with progressive left shoulder pain. We discussed options for treatment. She elected to proceed with left shoulder arthroscopy. Consent was obtained. Cardiac clearance was provided by Dr. Howard. PAST MEDICAL HISTORY: Hypertension, hyperlipidemia, mwh-kwxjeil-ktdvxwzil diabetes, gastroesophageal reflux disease, cardiovascular disease. PAST SURGICAL HISTORY: Appendectomy, cardiac catheterization with stent insertion. DAILY MEDICATIONS: Glipizide, Lasix, losartan, Lyrica, metformin, metoprolol, omeprazole, rosuvastatin. ALLERGIES: NONE. SOCIAL HISTORY: She smokes cigarettes. PHYSICAL EVALUATION OF LEFT SHOULDER: Flexion is 100 degrees. Abduction is 90 degrees. External rotation is 35 degrees with weakness and pain. Tenderness along the anterolateral acromion and rotator cuff insertion. Impingement is positive at 90 degrees. Drop-arm sign is positive. Distal neurovascular exam is intact. Radiographs of the left shoulder revealed a flat anterior acromion. MRI left shoulder revealed a large rotator cuff tendon tear. IMPRESSION: 1. Left shoulder rotator cuff tear. 2. Hypertension. 3. Hyperlipidemia. 4. Fwk-jfarzsf-wxvrhhdzw diabetes. 5. Cardiovascular disease. PLAN: Left shoulder arthroscopy with rotator cuff repair. MMODL / IJN: [id number] /
[2021-07-31] MEDS ORDERED: LACTATED RINGERS 1,000 ML IV ONE (08:00)
[2021-07-31 08:12] LABS: Glucose,Whole Blood 164 mg/dL (75-99)
[2021-07-31] MEDS ORDERED: ONDANSETRON 4 MG/2 ML VIAL ONE (08:23)
[2021-07-31] MEDS ORDERED: ONDANSETRON 4 MG/2 ML VIAL IVP ONE (08:37)
[2021-07-31] MEDS ORDERED: DEXAMETHASONE SOD PHOSPHATE 4 MG/ML 1 ML VIAL IVP ONE (08:39)
--- NOTE | 2021-07-31 10:07 | P.ANPRN ---
Procedure Note - Anesthesia - Nerve Block Performed Left Interscalene Single Time Out Performed: Yes (850) Date of Procedure: 07/31/21 Procedure Start Time: 08:51 Procedure Stop Time: 08:57 Location of Patient: PreOp Indication: Acute Post-Operative Pain, Requested by Surgeon Specifically requested for management of pain by DrChelsea: Tank Carter Sedation Type: Sedate with meaningful contact maintained Preparation: Sterile Prep Position: Supine Catheter: None Needle Types: Pajunk Needle Gauge: 21 Ultrasound used to visualize needle placement: Yes Ultrasound used to observe medication spread: Yes Injectate: 0.5% Ropivacaine (see comment for volume) (30cc) Blood Aspirated: No Pain Paresthesia on Injection Noted: No Resistance on Injection: Normal Image Stored and Saved: Yes Events: Uneventful and Well Tolerated
--- NOTE | 2021-07-31 10:59 | P.OP ---
Date of Procedure: 07/31/21 Preoperative Diagnosis: Left shoulder rotator cuff tear Postoperative Diagnosis: Left shoulder rotator cuff tear Procedure(s) Performed: Left shoulder arthroscopic rotator cuff repair Implants: 15.5 Arthrex swivel lock anchor Anesthesia: GETA, regional (Interscalene block) Surgeon: Tank Carter Sample Tester #1: Margarito Hsieh Estimated Blood Loss (ml): 11 Pathology: none sent Condition: stable Disposition: PACU Indications for Procedure: 71-year-old patient seen with progressive left shoulder pain. After treatment options were discussed, she elected to proceed with arthroscopy. Operative Findings: See description of procedure Description of Procedure: Patient underwent an interscalene block by department of anesthesia. The patient was then taken to the operative suite. The patient underwent a general anesthetic by the department of anesthesia. The patient was placed into a lateral position and secured. There was appropriate padding of the bony promi nence. Left shoulder was then prepped and draped in normal sterile orthopedic fashion. We placed the extremity in 10 pounds of longitudinal traction. A posterior incision was now made for a posterior working portal site. The trocar and cannula were inserted into the glenohumeral joint. Arthroscopy was initiated. Spinal needle was now inserted anteriorly, to ascertain the anterior working portal site. An incision was now made in that area, a trocar was inserted followed by a probe. The labrum was probed and was found to be stable. The biceps tendon was absent history previous tenotomy. There was evidence for grade 1 chondromalacia with no tears. At this point instruments removed from glenohumeral joint. Utilizing the posterior working portal site, the trocar and cannula were inserted into the subacromial space. Arthroscopy initiated. I made an incision 2 fingerbreadths lateral to the acromion. I introduced my trocar followed by my ArthroCare ablator. I now began ablating thick subacromial bursal tissue, which exposed the undersurface of the anterior acromion. There was adequate subacromial space present. The acromioclavicular joint was noted to be stable with adequate space present. I turned my attention to the rotator cuff tendon. There was obvious tear along the posterior aspect of the distal supraspinatus. There is evidence for previous repair anterior to that. A few of the sutures were incorporated into the tear. The suture limbs were clipped. The more anterior suture limbs appeared stable. The anchor appeared stable. I now debrided the margins of the rotator cuff tendon tear getting down to stable tendon tissue. The defect measured approximately 1.5 cm and was freely mobile over the footprint. I abraded the footprint with a motorized bur. With the assistance of Eduin THURMAN I passed 3 everted mattress sutures through good bites of rotator cuff tendon. I now partial on the footprint area for insertion of an anchor. I now passed all 6 limbs of suture through the eyelet of a 5.5 Arthrex swivel lock anchor. I now placed the eyelet into our pre-punched hole. I held that eyelet in position while Eduin THURMAN tensioned all 6 suture limbs and then deployed the anchor with good fixation noted. All residual suture limbs were now clipped. We had good compression of the tendon along the entire footprint. Instruments now removed from the portal sites. All portal sites were approximated with nylon suture. Sterile dressings were applied followed by a shoulder sling. Margarito THURMAN assisted in this case. The patient was awakened, transferred to a bed, and taken to recovery in stable condition.
[2021-07-31 11:03] VITALS: TEMP 97
[2021-07-31 12:22] VITALS: BP 136/79; PULSE 63; RESP 20
== END 2021-07-31 12:49 | disposition home or self-care (01) ==
LOC: OR 07:34
PROVIDERS: ATTEND Orthopaedic Surgery
DX: M75.102 Unspecified rotator cuff tear or rupture of left shoulder, not specified as traumatic (principal); M75.42 Impingement syndrome of left shoulder; M94.212 Chondromalacia, left shoulder; I25.10 Atherosclerotic heart disease of native coronary artery without angina pectoris; I10 Essential (primary) hypertension; E78.5 Hyperlipidemia, unspecified; E11.9 Type 2 diabetes mellitus without complications; K21.9 Gastro-esophageal reflux disease without esophagitis; F17.210 Nicotine dependence, cigarettes, uncomplicated; I34.1 Nonrheumatic mitral (valve) prolapse; J44.9 Chronic obstructive pulmonary disease, unspecified; G43.909 Migraine, unspecified, not intractable, without status migrainosus; N39.3 Stress incontinence (female) (male); Z90.49 Acquired absence of other specified parts of digestive tract; Z95.5 Presence of coronary angioplasty implant and graft; Z79.899 Other long term (current) drug therapy; Z79.84 Long term (current) use of oral hypoglycemic drugs
CPT/HCPCS: 64415; 76942; 29827; C1713; J1100; J0690; J2405

== ENCOUNTER → 2021-10-30 | Outpatient (CLI) | payer MEDICARE, OTHER ==
--- NOTE | 2021-10-30 19:21 | BD ---
EXAMINATION TYPE: Axial Bone Density DATE OF EXAM: 10/30/2021 COMPARISON: 01/11/2018 CLINICAL HISTORY: 71 years year old Female. ICD-10 CODE: Z13.820 SCREENING FOR OSTEOPOROSI Height: 66.2 IN Weight: 192 LBS Current Tobacco Use: YES RISK FACTORS HISTORY OF: Family History of Osteoporosis: YES MOTHER Active: LIMITED Diet low in dairy products/other sources of calcium: YES Postmenopausal woman: AGE 46 MEDICATIONS: Additional Medications: METFORMIN, GLIPIZIDE, HEART MED, EXAM MEASUREMENTS: Bone mineral densitometry was performed using the [employer] System. Bone mineral density as measured about the Lumbar spine is: ----- L1-L4(G/cm2): 1.429 T Score Values are as follows: ----- L1: 0.1 ----- L2: 1.4 ----- L3: 3.9 ----- L4: 3.0 ----- L1-L4: 2.1 Bone mineral density has: Increased 8.8% since study of: 01/11/2018 Bone mineral density about the R hip (g/cm2): 1.147 Bone mineral density about the L hip (g/cm2): 1.157 T Score values are as follows: -----R Neck: 0.8 -----L Neck: 0.9 -----R Total: 1.2 -----L Total: 1.1 Bone mineral density has: Decreased -1.6% since study of: 01/11/2018 FRAX%s: The graph provided illustrates a 5.8 chance for a major osteoporotic fx and a 0.4 chance for the hips probability for fx in 10 years time. IMPRESSION: Normal (Values between +1 and -1 indicate normal bone mass). Consider repeating this study in 5 year s or sooner if there is some new clinical indication. NOTE: T-SCORE=SD OF THE YOUNG ADULT MEAN.
--- NOTE | 2021-10-31 18:06 | MM ---
Reason for Exam: Screening (asymptomatic). Last mammogram was performed 1 year(s) and 8 month(s) ago. Patient History: Menarche at age 12. First Full-Term at age 17. Postmenopausal. Other cancer. Excisional Biopsy on the Left side. Daughter had breast cancer, age 37. Risk Values: Maritza 5 year model risk: 3.5%. NCI Lifetime model risk: 8.5%. Prior Study Comparison: 01/11/2018 Bilateral Screening Mammogram, [facility]. 01/26/2019 Bilateral Screening Mammogram, [facility]. 03/21/2020 Bilateral Screening Mammogram, [facility]. Tissue Density: There are scattered fibroglandular densities. Findings: Analyzed By CAD. Unchanged asymmetric densities anterior right breast. A few scattered benign oil cyst calcifications. No significant change from prior exams. Overall Assessment: Benign, BI-RAD 2 Management: Screening Mammogram of both breasts in 1 year. 1. Patient should continue monthly self breast exams. 2. A clinical breast exam by your physician is recommended on an annual basis. 3. This exam should not preclude additional follow-up of suspicious palpable abnormalities. Electronically signed and approved by: Dalia Otoole M.D. Radiologist
== END | disposition home or self-care (01) ==
LOC: RADMAMWWP 13:31
PROVIDERS: ATTEND Internal Medicine
DX: Z12.31 Encounter for screening mammogram for malignant neoplasm of breast (principal); Z78.0 Asymptomatic menopausal state
CPT/HCPCS: 77063; 77067; 77080

== ENCOUNTER → 2021-11-22 | Outpatient (CLI) | payer MEDICARE, OTHER ==
--- NOTE | 2021-11-22 13:35 | CTL ---
EXAMINATION TYPE: CT Low Dose Lung DATE OF EXAM ORDERED: 11/22/2021 HISTORY: Z87.891 PERSONAL HISTORY OF NICOTINE DEPENDENCE . Lung cancer screening CT DLP: 77.[address] CTDI: 2.2 mGy Automated exposure control for dose reduction was used. SCREENING VISIT: First screening visit. COMPARISON: CT chest 08/04/2018 TECHNIQUE: Low dose computed tomography scan was performed through the chest at 1 mm thick sections a nd reconstructed images in multiple planes at 1 mm and [address] DIAGNOSTIC QUALITY: Satisfactory FINDINGS: LUNG NODULES: 2 mm left upper lobe calcified granuloma. No concerning pulmonary nodules. LUNGS: COPD: Severity: None Fibrosis: Severity: None Lymph nodes: None Other findings: None RIGHT PLEURAL SPACE: Effusion: None Calcification: None Thickening: Apical pleural-parenchymal scarring. Pneumothorax: None LEFT PLEURAL SPACE: Effusion: None Calcification: None Thickening: Apical pleural-parenchymal scarring. Pneumothorax: None HEART: Heart Size: Normal Coronary Calcification: Moderate Pericardial Effusion: None OTHER FINDINGS: Upper abdomen: None Bony thorax: Multilevel degenerative changes of visualized spine. Supraclavicular region: None Other: Dilation of the main pulmonary artery measuring up to 4.2 cm. Ectasia of the ascending thoraci c aorta measuring up to 3.7 cm. IMPRESSION: 1. No concerning pulmonary nodules. 2. Dilation of main pulmonary artery which can be seen in the setting of pulmonary arterial hyperten lucy. CT LUNG RAD AND CT CHEST RECOMMENDATION: Lung-Rad 1 Negative: Continue annual screening with LDCT in 12 months. S Modifier (other clinically significant findings): None
== END | disposition home or self-care (01) ==
LOC: RADCTMAIN 11:58
PROVIDERS: ATTEND Internal Medicine
DX: Z12.2 Encounter for screening for malignant neoplasm of respiratory organs (principal); Z87.891 Personal history of nicotine dependence
CPT/HCPCS: 71271

== ENCOUNTER → 2021-12-04 | Outpatient (CLI) | payer MEDICARE, OTHER ==
--- NOTE | 2021-12-05 23:04 | MR ---
EXAMINATION TYPE: MR lumbar spine wo con DATE OF EXAM: 12/04/2021 COMPARISON: None HISTORY: Spondylosis, pain TECHNIQUE: Multiplanar, multisequence images of the lumbar spine were acquired without IV contrast. L1-L2: Posterior broad-based disc bulge causes anterior mass effect on the thecal sac. Facet arthropa thy with hypertrophy of ligamentum flavum causes mild anterior mass effect on the thecal sac. L2-L3: There is eburnation present. Posterior extension endplate disc complex causes anterior mass ef fect on the thecal sac. Facet arthropathy changes are present. Circumferential extension endplate dis c complex causes left-sided foraminal encroachment L3-L4: Posterior extension endplate disc complex causes anterior mass effect on the thecal sac. Circu mferential extension endplate disc complex results in some foraminal encroachment bilaterally. Facet arthropathy with virtually the ligamentum flavum causes posterior lateral mass effect on the thecal s ac. L4-L5: Circumferential extension of endplate disc complex causes bilateral foraminal encroachment rig ht greater than left. Posterior broad-based disc bulge causes anterior mass effect on the thecal sac. Facet arthropathy with hypertrophy ligamentum flavum causes some posterior lateral mass effect on th e thecal sac. There is encroachment on the right lateral recess. L5-S1: Facet arthropathy changes are present, circumferential extension endplate disc complex causes bilateral foraminal encroachment. Increased signal posterior aspect of the disc is consistent with an nular tear, posterior disc bulge causes mild anterior mass effect on the thecal sac. Lumbar segments are intact. No paraspinal masses are identified. Conus medullaris has a normal appe arance. No significant spinal stenosis. There is multilevel spondylosis with endplate discogenic alexa ow signal change. Loss of disc height signal is present at intervertebral levels. There is an S-shape d scoliotic curvature. IMPRESSION: Scoliosis, degenerative disc disease, facet arthropathy and multilevel foraminal encroachment.
== END | disposition home or self-care (01) ==
LOC: RADMRIMAIN 11:04
PROVIDERS: ATTEND Nurse Practitioner Family
DX: M47.27 Other spondylosis with radiculopathy, lumbosacral region (principal); M51.16 Intervertebral disc disorders with radiculopathy, lumbar region; M51.36 Other intervertebral disc degeneration, lumbar region; M41.86 Other forms of scoliosis, lumbar region
CPT/HCPCS: 72148

== ENCOUNTER → 2022-02-04 | Outpatient (CLI) | payer MEDICARE, OTHER ==
[2022-02-04 18:38] LABS: Basophils # (A) 0.04 X 10*3/uL (0.00-0.10); Basophils % (A) 0.6 %; Eosinophils % (A) 1.4 %; HCT 43.9 % (37.2-46.3); HGB 13.7 g/dL (12.0-15.0); Immature Grans, Automated 0.6 %; Lymphocytes # (A) 2.73 X 10*3/uL (0.90-5.00); Lymphocytes % (A) 38.8 %; MCH 29.8 pg (27.0-32.0); MCHC 31.2 g/dL (32.0-37.0); MCV 95.4 fL (80.0-97.0); Monocytes # (A) 0.63 X 10*3/uL (0.20-1.00); Monocytes % (A) 8.9 %; NRBC Per 100 WBC 0 /100 WBCS (0.0-0.0); Neutrophils % (A) 49.7 %; Platelet Count 291 X 10*3/uL (140-440); RDW 14.4 % (11.5-14.5); WBC 7.04 X 10*3/uL (4.50-10.00)
[2022-02-04 19:13] LABS: % Iron Saturation 13.03 (12.00-45.00); ALT 17 U/L (8-44); AST 23 U/L (13-35); African American GFR (CKD) 100.4 (60.0-200.0); Albumin 4.7 g/dL (3.8-4.9); Albumin/Globulin Ratio 2.17 (1.60-3.17); Alkaline Phosphatase 70 U/L (41-126); BUN/Creat Ratio 20.06 Ratio (12.00-20.00); Blood Urea Nitrogen 13.7 mg/dL (9.0-27.0); Calcium 9.9 mg/dL (8.7-10.3); Carbon Dioxide 26.7 mmol/L (20.0-27.5); Chloride 102 mmol/L (96-109); Globulin 2.2 g/dL (1.6-3.3); Glucose 123 mg/dL (70-110); Iron 59 ug/dL (50-170); LDL Cholesterol,Calculated 42.7 mg/dL (0.0-131.0); Non-African American GFR(CKD) 86.7 (60.0-200.0); Potassium 4.6 mmol/L (3.5-5.5); Sodium 141 mmol/L (135-145); Total Iron Binding Capacity 454 ug/dL (228-460); Total Protein 6.8 g/dL (6.2-8.2)
== END | disposition home or self-care (01) ==
LOC: LABPAT 12:41
PROVIDERS: ATTEND Orthopaedic Surgery
DX: Z01.812 Encounter for preprocedural laboratory examination (principal); M47.816 Spondylosis without myelopathy or radiculopathy, lumbar region; M48.061 Spinal stenosis, lumbar region without neurogenic claudication; E11.9 Type 2 diabetes mellitus without complications; E53.8 Deficiency of other specified B group vitamins; Z22.322 Carrier or suspected carrier of Methicillin resistant Staphylococcus aureus
CPT/HCPCS: 80053; 80061; 82607; 82746; 83036; 83540; 83550; 84443; 85025; 85610; 87070

== ENCOUNTER 2022-02-06 07:51 | Day surgery (SDC) | payer MEDICARE, OTHER ==
[~2022-02-06 07:51] MED LIST changes: +ALPRAZolam 0.25 MG TAB PO PRN; +ALPRAZolam 0.5 MG TAB PO PRN; +ASPIRIN 325 MG TAB PO ONE; -DEXAMETHASONE SOD PHOSPHATE 4 MG/ML 1 ML VIAL IV ONE; -HYDROmorphone 0.5 MG/0.5 ML SYRINGE IVP PRN; -LACTATED RINGERS 1,000 ML IV SCH; -MIDAZOLAM 2 MG/2 ML VIAL IV PRN; +NITROGLYCERIN SL TABS 0.4 MG TAB SUBLINGUAL PRN; -ONDANSETRON 4 MG/2 ML VIAL IVP ONE; +SODIUM CHLORIDE 0.9% 1,000 ML in EMPTY BAG 1 BAG IV SCH
[2022-02-06] MEDS ORDERED: ASPIRIN 81 MG ONE ×2 (08:05→08:08)
[2022-02-06] MEDS ORDERED: SODIUM CHLORIDE 0.9% 1,000 ML IV ONE (08:06)
[2022-02-06 08:37] LABS: Glucose,Whole Blood 183 mg/dL (70-110)
[2022-02-06] MEDS ORDERED: HEPARIN SODIUM 1,000 UN/ML (10ML VL) ONE (08:58)
[2022-02-06] MEDS ORDERED: VERAPAMIL 2.5 MG/ML 2 ML AMP ONE (08:58)
[2022-02-06] MEDS ORDERED: MIDAZOLAM 2 MG/2 ML VIAL IV ONE (09:12)
[2022-02-06] MEDS ORDERED: LIDOCAINE 1% INJ 10MG/ML (30 ML VIAL-PF) SQ ONE (09:14)
[2022-02-06] MEDS ORDERED: VERAPAMIL SYRINGE (5 MG/10 ML) INTRAARTER ONE (09:16)
[2022-02-06] MEDS: HEPARIN SODIUM 1,000 UN/ML (10ML VL) IV ONE ×2 (09:17→09:34)
[2022-02-06] MEDS ORDERED: HYDROmorphone 1 MG/ML 1 ML SYRINGE ONE (09:23)
[2022-02-06] MEDS ORDERED: HYDROmorphone 1 MG/ML 1 ML SYRINGE IVP ONE (09:24)
[2022-02-06] MEDS: MIDAZOLAM 2 MG/2 ML VIAL IV ONE ×2 (09:37→09:46)
[2022-02-06] MEDS ORDERED: TICAGRELOR 90 MG TAB ONE (09:59)
[2022-02-06] MEDS ORDERED: TICAGRELOR 90 MG TAB PO ONE (10:01)
[2022-02-06] MEDS ORDERED: IOPAMIDOL-370 125ML BTL INJ ONE (10:01)
[2022-02-06] MEDS ORDERED: FLUTICASONE 50MCG/SPRAY NASAL 16GM EA NOSTRIL PRN (10:26)
[2022-02-06] MEDS ORDERED: RX INFO: IV CONTRAST WAS GIVEN 1 EACH MISC MISCELLANE PRN (10:27)
[2022-02-06] MEDS ORDERED: MAG HYDROX/AL HYDROX/SIMETH 30 ML CUP PO PRN (10:27)
[2022-02-06] MEDS ORDERED: ZOLPIDEM 5 MG TAB PO PRN (10:27)
[2022-02-06] MEDS ORDERED: ATROPINE SULFATE 0.1 MG/ML 10ML SYRINGE IV PRN (10:27)
[2022-02-06 10:45] LABS: Glucose,Whole Blood 140 mg/dL (70-110)
[2022-02-06 13:03] VITALS: BMI 29.8
[2022-02-06] MEDS: MORPHINE SULFATE 4 MG/ML SYRINGE IVP PRN ×2 (14:40→20:22)
[2022-02-06] MEDS: GABAPENTIN 300 MG CAP PO SCH ×2 (15:53→20:21)
[2022-02-06 16:40] LABS: Glucose,Whole Blood 227 mg/dL (70-110)
[2022-02-06 20:17] LABS: Glucose,Whole Blood 182 mg/dL (70-110)
[2022-02-06] MEDS: PANTOPRAZOLE 40 MG TABLET PO SCH (20:20)
[2022-02-06] MEDS: TICAGRELOR 90 MG TAB PO SCH (20:20)
--- NOTE | 2022-02-06 20:43 | P.PCN ---
Date of Procedure: 02/06/22 Operative Findings: CARDIAC CATHETERIZATION AND PERCUTANEOUS CORONARY INTERVENTION PERFORMING PHYSICIAN: Corbin Howard MD, RPVI PROCEDURE PERFORMED: 1. Selective right and left coronary angiogram 2. Left heart catheterization 3. Successful stenting of the left main using 5.0 x 12 mm Xience HAWA with an excellent angiographic results 4. FFR of the left main coronary artery 5. Intravascular ultrasound of the left main coronary artery INDICATION: This is a 71-year-old female patient with diabetes and smoking and hypertension and dyslipidemia and coronary artery disease was seen in the office for a preop cardiac assessment before noncardiac surgery. She underwent myocardial perfusion imaging stress test and that revealed an anterior ischemia and in the light of that the heart catheterization was advised COMPLICATION: None APPROACH: Right radial artery LEVEL OF SEDATION: Moderate with sedation length of 38 minutes PROCEDURE DESCRIPTION: After obtaining an informed consent, the patient was brought to cardiac cath laboratory technician. Local anesthesia was performed using lidocaine subcutaneously. The right radial artery was cannulated using Seldinger technique, the guidewire passed easily, following that we advanced a 6 Hungarian sheath dilator assembly, the wire and dilator were removed and sheath was flushed. Selective right and left coronary angiogram using a 6-Hungarian JR4 and JL4.5 catheters. Following that we did left heart catheterization using 6-Hungarian pigtail catheter. After that I d id intervene on the left main. The procedure was completed there was no complication. SELECTIVE CORONARY ANGIOGRAM: The right coronary artery: Large-caliber vessel and a dominant vessel. The proximal RCA is a stented and the stent is patent. The mid and distal RCA appeared to be angiographically normal. The RCA distally bifurcates into PDA and PLV branches all appear to have mild disease only Left main: The ostial left main appears to have intermediate lesion in the range of 50%. There was ventricularization in the waveform upon engaging the left main using a 5 Hungarian catheter. The left circumflex: Large-caliber vessel nondominant vessel. Left circumflex has mild disease only. Gives rises into an OM branch which appeared to have mild disease only The left anterior descending artery: Large-caliber vessel. It has mild disease only. Give stress into a diagonal branch which appeared to have mild disease only as well PCI OF THE LM: Initially we performed an FFR of the left main. After zeroing the Doppler wire and equalizing between the Doppler wire and the guiding catheter which was JL 4 guiding catheter we did FFR prior IV adenosine infusion and that came in to be ischemic 0.74. As a matter of fact I did an iFR to ischemic 0.74. At that point we decided to pursue with a stenting of the left main. I did initially intravascular ultrasound and that showed a diameter of the left main about 4.5 mm. For that reason I decided to direct stenting of the left main using 5.0 by 12 mm stent where the stent was positioned under fluoroscopy guidance and deployed under 10 daphne for 20 seconds. The final angiogram showed good angiographic results. There was an area at the distal edge of the stent concerning for dissection but we did perform intravascular ultrasound and this showed no dissection/edge dissection. There was NANCY III flow and the patient was asymptomatic with no EKG changes and at that point we decided to stop CONCLUSION: 1. Patent stent in the proximal RCA 2. Intermediate disease involving the ostial left main. FFR was ischemic. I performed successful stenting of the left main POSTPROCEDURE MANAGEMENT: Dual antiplatelet therapy using aspirin and Brilinta for 12 months
[2022-02-06] MEDS ORDERED: LOSARTAN 25 MG TAB PO SCH (21:00)
[2022-02-06] MEDS ORDERED: ATORVASTATIN 80 MG TAB PO SCH ×2 (21:00)
[2022-02-06] MEDS: SYMBICORT 80-4.5 MCG INHALER INHALATION SCH (21:15)
[2022-02-06 23:59] VITALS: TEMP 97.9
[2022-02-07 06:18] LABS: Glucose,Whole Blood 138 mg/dL (70-110)
[2022-02-07] MEDS: SYMBICORT 80-4.5 MCG INHALER INHALATION SCH (07:14)
[2022-02-07 08:55] LABS: Basophils % (A) 1 %; Eosinophils # (A) 0.2 k/uL (0-0.7); Eosinophils % (A) 3 %; HCT 39.8 % (34.0-46.0); HGB 12.7 gm/dL (11.4-16.0); Hypochromasia Slight; Lymphocytes # (A) 1.9 k/uL (1.0-4.8); Lymphocytes % (A) 32 %; MCH 30.2 pg (25.0-35.0); MCHC 31.9 g/dL (31.0-37.0); MCV 94.6 fL (80.0-100.0); Monocytes # (A) 0.6 k/uL (0-1.0); Monocytes % (A) 10 %; Neutrophils # (A) 3.1 k/uL (1.3-7.7); Neutrophils % (A) 53 %; Platelet Count 233 k/uL (150-450); RBC 4.21 m/uL (3.80-5.40); RDW 13.5 % (11.5-15.5); WBC 5.9 k/uL (3.8-10.6)
[2022-02-07 08:59] VITALS: RESP 18
[2022-02-07] MEDS ORDERED: LOSARTAN 50 MG TAB PO SCH (09:00)
[2022-02-07] MEDS ORDERED: METOPROLOL SUCCINATE (ER) 100 MG TAB.ER.24H PO SCH (09:00)
[2022-02-07] MEDS ORDERED: ASCORBIC ACID 500 MG TAB PO SCH (09:00)
[2022-02-07] MEDS ORDERED: NON FORMULARY DRUG (Aspirin [Adult Low Dose Aspirin Ec] 81 MG Tablet.Dr) PO SCH (09:00)
[2022-02-07] MEDS: PANTOPRAZOLE 40 MG TABLET PO SCH (09:00)
[2022-02-07] MEDS ORDERED: glipiZIDE 10 MG TAB PO SCH (09:00)
[2022-02-07] MEDS: TICAGRELOR 90 MG TAB PO SCH (09:00)
[2022-02-07] MEDS ORDERED: CYANOCOBALAMIN 500 MCG TAB PO SCH (09:00)
[2022-02-07] MEDS ORDERED: ASPIRIN 81 MG PO SCH (09:00)
[2022-02-07] MEDS ORDERED: FERROUS SULFATE 325 MG TAB PO SCH (09:00)
[2022-02-07] MEDS: GABAPENTIN 300 MG CAP PO SCH (09:03)
[2022-02-07 09:05] LABS: African American GFR (CKD) >90 (>60 ml/min/1.73 sqM); Anion Gap 5 mmol/L; Blood Urea Nitrogen 14 mg/dL (7-17); Calcium 8.9 mg/dL (8.4-10.2); Carbon Dioxide 25 mmol/L (22-30); Chloride 105 mmol/L (98-107); Glucose 242 mg/dL (74-99); Non-African American GFR(CKD) 79 (>60 ml/min/1.73 sqM); Potassium 4.5 mmol/L (3.5-5.1); Sodium 135 mmol/L (137-145)
[2022-02-07 11:51] LABS: Glucose,Whole Blood 160 mg/dL (70-110)
[2022-02-07 12:04] VITALS: BP 149/81; PULSE 50
--- NOTE | 2022-02-07 12:27 | P.DS ---
Providers Attending physician: Corbin Howard Consults: 02/06/22 10:28 Consult Physician Routine Consulting Provider: [facility] Consult Reason/Comments: Post Interventional patient Do you want consulting provider notified?: Already Contacted Primary care physician: Denis Garza MD Hospital Course: The patient is a pleasant 71-year-old female patient was underwent yesterday successful stenting of the left main with a good angiographic results and without any complication from right radial approach She was seen this morning. She is asymptomatic she is hemodynamically stable. The patient is going to be discharged home on dual antiplatelet therapy and statin and I'll follow-up with the patient next week in the office Please note that the right radial is soft and mildly tender with a good pulse. Plan - Discharge Summary Discharge Rx Participant: Yes New Discharge Prescriptions: New Ticagrelor [Brilinta] 90 mg PO BID #180 tab Continue Omeprazole [PriLOSEC] 20 mg PO BID Losartan [Cozaar] 50 mg PO QAM Aspirin [Adult Low Dose Aspirin EC] 81 mg PO DAILY Cyanocobalamin (Vitamin B-12) [Vitamin B-12] 1,000 mcg PO DAILY Losartan [Cozaar] 25 mg PO HS Rosuvastatin Calcium [Crestor] 40 mg PO HS Metoprolol Succinate [Toprol XL] 100 mg PO DAILY glipiZIDE [Glucotrol] 10 mg PO QAM Ascorbic Acid [Vitamin C] 500 mg PO DIRECTED Ferrous Sulfate [Feosol] 325 mg PO DAILY Fluticasone/Vilanterol [Breo Ellipta 100-25 Mcg Inhaler] 1 inhalation PO Q24HR PRN PRN Reason: COPD Gabapentin [Neurontin] 300 mg PO TID Fluticasone Nasal [place] [Flonase Nasal [place]] 1 spray EA NOSTRIL DAILY PRN PRN Reason: Sinus Symptoms Discontinued metFORMIN HCL [Glucophage] 1,000 mg PO BID Discharge Medication List Aspirin [Adult Low Dose Aspirin EC] 81 mg PO DAILY 09/10/18 [History] Losartan [Cozaar] 50 mg PO QAM 09/10/18 [History] Omeprazole [PriLOSEC] 20 mg PO BID 09/10/18 [History] glipiZIDE [Glucotrol] 10 mg PO QAM 08/28/20 [History] Ascorbic Acid [Vitamin C] 500 mg PO DIRECTED 07/29/21 [History] Cyanocobalamin (Vitamin B-12) [Vitamin B-12] 1,000 mcg PO DAILY 07/29/21 [History] Ferrous Sulfate [Feosol] 325 mg PO DAILY 07/29/21 [History] Fluticasone/Vilanterol [Breo Ellipta 100-25 Mcg Inhaler] 1 inhalation PO Q24HR PRN 07/29/21 [History] Gabapentin [Neurontin] 300 mg PO TID 07/29/21 [History] Fluticasone Nasal [place] [Flonase Nasal [place]] 1 spray EA NOSTRIL DAILY PRN 02/05/22 [History] Losartan [Cozaar] 25 mg PO HS 02/05/22 [History] Metoprolol Succinate [Toprol XL] 100 mg PO DAILY 02/05/22 [History] Rosuvastatin Calcium [Crestor] 40 mg PO HS 02/05/22 [History] Ticagrelor [Brilinta] 90 mg PO BID #180 tab 02/07/22 [Rx] Follow up Appointment(s)/Referral(s): Corbin Howard MD [STAFF PHYSICIAN] - 1 Week (Office will call with appointment date and time)
== END 2022-02-07 13:47 | disposition home or self-care (01) ==
LOC: CATHCVL 07:51 → 3SCARD 10:10 → CATHCVL 02-07 13:47
PROVIDERS: ATTEND Internal Medicine Interventional Cardiology
DX: I25.10 Atherosclerotic heart disease of native coronary artery without angina pectoris (principal); E78.5 Hyperlipidemia, unspecified; I10 Essential (primary) hypertension; E11.9 Type 2 diabetes mellitus without complications; F17.200 Nicotine dependence, unspecified, uncomplicated; Z79.82 Long term (current) use of aspirin; Z79.84 Long term (current) use of oral hypoglycemic drugs
CPT/HCPCS: 94640 ×2; 94760 ×2; 93571; 92978; 93458; 80048; 85025; C9600; C1887; C1769 ×3; C1894; C1753; C1874; J2250; J2270; J2001; J1644; J1170; Q9967

== ENCOUNTER → 2022-02-06 | Outpatient (CLI) | payer MEDICARE, OTHER ==
[2022-02-06 07:55] LABS: Prothrombin Time 10.5 sec (9.0-12.0)
== END | disposition home or self-care (01) ==
LOC: LABPAT 07:23
PROVIDERS: ATTEND Orthopaedic Surgery
DX: Z01.812 Encounter for preprocedural laboratory examination (principal); Z22.322 Carrier or suspected carrier of Methicillin resistant Staphylococcus aureus; M47.816 Spondylosis without myelopathy or radiculopathy, lumbar region; M48.061 Spinal stenosis, lumbar region without neurogenic claudication; E11.9 Type 2 diabetes mellitus without complications; E53.8 Deficiency of other specified B group vitamins
CPT/HCPCS: 85610

== ENCOUNTER 2022-09-09 10:16 | Inpatient (IN) | payer MEDICARE, OTHER ==
[2022-09-09 12:52] LABS: Anisocytosis Moderate; Hypochromasia Marked; MCH 18.5 pg (25.0-35.0); MCHC 27.3 g/dL (31.0-37.0); MCV 67.7 fL (80.0-100.0); Microcytosis Marked; Platelet Count 289 k/uL (150-450); Poikilocytosis Moderate; RBC 2.75 m/uL (3.80-5.40); RDW 20.6 % (11.5-15.5)
[2022-09-09 12:56] LABS: ALT 14 U/L (4-34); AST 25 U/L (14-36); African American GFR (CKD) 79 (>60 ml/min/1.73 sqM); Albumin 3.8 g/dL (3.5-5.0); Alkaline Phosphatase 68 U/L (38-126); Anion Gap 10 mmol/L; Blood Urea Nitrogen 20 mg/dL (7-17); Calcium 8.8 mg/dL (8.4-10.2); Carbon Dioxide 20 mmol/L (22-30); Chloride 106 mmol/L (98-107); Glucose 142 mg/dL (74-99); Non-African American GFR(CKD) 69 (>60 ml/min/1.73 sqM); Potassium 4.1 mmol/L (3.5-5.1); Sodium 136 mmol/L (137-145); Total Bilirubin 0.5 mg/dL (0.2-1.3); Total Protein 6.1 g/dL (6.3-8.2)
[2022-09-09 13:06] LABS: HGB 5.1 gm/dL (11.4-16.0)
[2022-09-09 13:07] LABS: HCT 18.7 % (34.0-46.0)
[2022-09-09] MEDS ORDERED: NALOXONE 0.4 MG/ML 1 ML VIAL IV PRN (13:07)
--- NOTE | 2022-09-09 13:07 | ED ---
General Adult HPI - General Chief complaint: Recheck/Abnormal Lab/Rx Stated complaint: Sent by Blood Transfusion Time Seen by Provider: 09/09/22 10:35 Source: patient Mode of arrival: ambulatory Limitations: no limitations - History of Present Illness Initial comments: 72-year-old female with past medical history of iron deficiency anemia who prese nts to the emergency department with significant anemia. She was seen yesterday in her primary care office yesterday for a routine appointment. Laboratory studies were drawn. She received a call this morning that her blood counts were extremely low and needed to go to the hospital for transfusion. She has never received a blood transfusion. Does admit to iron transfusions however the last one was several years ago as her blood counts have been good. She used to take oral iron up until 6 months ago however stopped it on her own because it constipated her. She denies any bleeding. No black or bloody stools. No history of GI bleeding. No hematemesis, epistaxis. No abnormal bruising or bleeding. She denies chest pain or shortness of breath. Patient does have history of cardiac stents. No other alleviating, precipitating or modifying factors - Related Data Home Medications Medication Instructions Recorded Confirmed Aspirin [Adult Low Dose Aspirin EC] 81 mg PO HS 09/10/18 09/09/22 Losartan [Cozaar] 75 mg PO DAILY 09/10/18 09/09/22 Omeprazole [PriLOSEC] 20 mg PO BID 09/10/18 09/09/22 glipiZIDE [Glucotrol] 10 mg PO DAILY 08/28/20 09/09/22 Cyanocobalamin (Vitamin B-12) 1,000 mcg PO DAILY 07/29/21 09/09/22 [Vitamin B-12] Fluticasone/Vilanterol [Breo 1 puff INHALATION RT-DAILY PRN 07/29/21 09/09/22 Ellipta 100-25 Mcg Inhaler] Gabapentin [Neurontin] 300 mg PO TID 07/29/21 09/09/22 Fluticasone Nasal [place] [Flonase 1 spray EA NOSTRIL DAILY PRN 02/05/22 09/09/22 Nasal [place]] Metoprolol Succinate [Toprol XL] 100 mg PO DAILY 02/05/22 09/09/22 Rosuvastatin Calcium [Crestor] 40 mg PO HS 02/05/22 09/09/22 Albuterol Sulfate [Albuterol 1 - 2 puff PO RT-Q6H PRN 09/09/22 09/09/22 Sulfate Hfa] metFORMIN HCL 1,000 mg PO BID 09/09/22 09/09/22 Allergies Allergy/AdvReac Type Severity Reaction Status Date / Time No Known Allergies Allergy Verified 09/09/22 12:38 Review of Systems ROS Statement: Those systems with pertinent positive or pertinent negative responses have been documented in the HPI. ROS Other: All systems not noted in ROS Statement are negative. 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 Lower back pain, , hx migraines, Urinary stress incontinence, Varicose veins, occ edema feet. heart murmur, skin cancer on nose and left arm History of Any Multi-Drug Resistant Organisms: None Reported Past Surgical History: Appendectomy, Bladder Surgery, Heart Catheterization With Stent, Orthopedic Surgery, Tonsillectomy Additional Past Surgical History / Comment(s): Colonoscopy, EGD [place] bladder sling. Lt shoulder rotator cuff x 2, one cardiac stent, skin cancer removed from nose and left arm, mae cataracts Past Anesthesia/Blood Transfusion Reactions: No Reported Reaction Date of Last Stent Placement:: 09-15-2018 Past Psychological History: No Psychological Hx Reported Smoking Status: Current every day smoker Past Alcohol Use History: Rare Past Drug Use History: None Reported - Past Family History Mother Family Medical History: Blood Disorder, Cancer Additional Family Medical History / Comment(s): Kidney cancer Daughter(s) Family Medical History: Cancer Additional Family Medical History / Comment(s): Breast cancer, liver cancer Father Family Medical History: Cancer Additional Family Medical History / Comment(s): Back cancer General Exam Limitations: no limitations General appearance: alert, in no apparent distress Head exam: Present: atraumatic, normocephalic, normal inspection Eye exam: Present: normal appearance, PERRL, EOMI. Absent: scleral icterus, conjunctival injection, periorbital swelling ENT exam: Present: normal exam, mucous membranes moist Neck exam: Present: normal inspection. Absent: tenderness, meningismus, lymphadenopathy Respiratory exam: Present: normal lung sounds bilaterally. Absent: respiratory distress, wheezes, rales, rhonchi, stridor Cardiovascular Exam: Present: regular rate, normal rhythm, normal heart sounds. Absent: systolic murmur, diastolic murmur, rubs, gallop, clicks GI/Abdominal exam: Present: soft, normal bowel sounds. Absent: distended, tenderness, guarding, rebound, rigid Extremities exam: Present: normal inspection, full ROM, normal capillary refill. Absent: tenderness, pedal edema, joint swelling, calf tenderness Back exam: Present: normal inspection Neurological exam: Present: alert, oriented X3, CN II-XII intact Psychiatric exam: Present: normal affect, normal mood Skin exam: Present: warm, dry, intact, normal color. Absent: rash Course Vital Signs 09/09/22 09/09/22 09/09/22 10:35 11:13 11:15 Temperature 97.9 F Pulse Rate 71 Respiratory 20 21 Rate Blood Pressure 147/74 136/60 O2 Sat by Pulse 99 100 97 Oximetry 09/09/22 09/09/22 09/09/22 11:16 11:30 11:45 Temperature Pulse Rate 65 64 71 Respiratory 22 15 14 Rate Blood Pressure 136/60 136/60 136/60 O2 Sat by Pulse 100 95 97 Oximetry 09/09/22 09/09/22 09/09/22 12:00 12:15 12:30 Temperature Pulse Rate 75 78 Respiratory 14 17 Rate Blood Pressure 136/60 136/60 136/60 O2 Sat by Pulse 99 Oximetry 09/09/22 09/09/22 09/09/22 12:45 13:00 13:15 Temperature Pulse Rate 61 80 81 Respiratory 14 16 18 Rate Blood Pressure 136/60 136/60 119/57 O2 Sat by Pulse 98 95 100 Oximetry 09/09/22 09/09/22 09/09/22 13:30 13:45 14:00 Temperature 98.0 F Pulse Rate 71 112 H 79 Respiratory 7 L 11 L 18 Rate Blood Pressure 119/57 119/57 119/57 O2 Sat by Pulse 97 99 100 Oximetry 09/09/22 09/09/22 09/09/22 14:15 14:30 14:45 Temperature 98 F Pulse Rate 80 67 81 Respiratory 15 16 16 Rate Blood Pressure 140/67 146/59 142/89 O2 Sat by Pulse 100 90 L 95 Oximetry 09/09/22 09/09/2223 15:00 16:00 17:00 Temperature 98 F Pulse Rate 77 83 82 Respiratory 18 18 18 Rate Blood Pressure 134/54 107/61 126/65 O2 Sat by Pulse 99 99 99 Oximetry 09/09/22 09/09/22 09/09/22 17:45 18:13 18:29 Temperature 98.6 F 98.4 F Pulse Rate 67 80 75 Respiratory 18 18 18 Rate Blood Pressure 130/53 137/52 122/51 O2 Sat by Pulse 98 96 97 Oximetry 09/09/22 09/09/22 18:49 20:53 Temperature 98.5 F Pulse Rate 75 65 Respiratory 18 16 Rate Blood Pressure 140/60 147/62 O2 Sat by Pulse 96 99 Oximetry Medical Decision Making - Medical Decision Making Was pt. sent in by a medical professional or institution (, PA, COLORECTAL SURGEON, urgent care, hospital, or [facility]...) When possible be specific @ -PCP for abn blood work Did you speak to anyone other than the patient for history (EMS, parent, family, police, friend...)? What history was obtained from this source @ -No Did you review nursing and triage notes (agree or disagree)? Why? @ -I reviewed and agree with nursing and triage notes Were old charts reviewed (outside hosp., previous admission, EMS record, old EKG, old radiological studies, urgent care reports/EKG's, [facility] records)? Report findings @ -Blood work from PCP was reviewed Differential Diagnosis (chest pain, altered mental status, abdominal pain women, abdominal pain men, vaginal bleeding, weakness, fever, dyspnea, syncope, headache, dizziness, GI bleed, back pain, seizure, CVA, palpatations, mental health, musculoskeletal)? @ -gi bleed, iron deficiency, anemia of chronic disease EKG interpreted by me (3pts min.). @ -none done X-rays interpreted by me (1pt min.). @ -None done CT interpreted by me (1pt min.). @ -None done U/S interpreted by me (1pt. min.). @ -None done What testing was considered but not performed or refused? (CT, X-rays, U/S, labs)? Why? @ -None What meds were considered but not given or refused? Why? @ -None Did you discuss the management of the patient with other professionals (professionals i.e. , PA, COLORECTAL SURGEON, lab, RT, psych nurse, mental health social worker, watch supervisor, teacher, public information officer, case therapist)? Give summary @ -dr baxter who will admit pt Was smoking cessation discussed for >3mins.? @ -No Was critical care preformed (if so, how long)? @ -yes, 35 minutes for blood transfusion Were there social determinants of health that impacted care today? How? (Homelessness, low income, unemployed, alcoholism, drug addiction, transportation, low edu. Level, literacy, decrease access to med. care, long term, rehab)? @ -No Was there de-escalation of care discussed even if they declined (Discuss DNR or withdrawal of care, Hospice)? DNR status @ -No What co-morbidities impacted this encounter? (DM, HTN, Smoking, COPD, CAD, Cancer, CVA, ARF, Chemo, Hep., AIDS, mental health diagnosis, sleep apnea, morbid obesity)? @ -iron deficiency anemia Was patient admitted / discharged? Hospital course, mention meds given and route, prescriptions, significant lab abnormalities, going to OR and other pertinent info. @ -Upon arrival patient is placed into room 17. A thorough history and physical exam was performed. Laboratory studies do demonstrate a hemoglobin of 5.1. Iron studies had been performed by the primary care doctor and are notably low. Patient will be transfused 2 units of blood. She has never received blood products before. Patient will be admitted for overnight observation. Repeat hemoglobin is ordered for 6 PM. I spoke with Dr. Baxter who agreed to admit the patient Undiagnosed new problem with uncertain prognosis? @ -No Drug Therapy requiring intensive monitoring for toxicity (Heparin, Nitro, Insulin, Cardizem)? @ -No Were any procedures done? @ -No Diagnosis/symptom? @ -acute anemia, suspected iron deficiency Acute, or Chronic, or Acute on Chronic? @ -acute on chronic Uncomplicated (without systemic symptoms) or Complicated (systemic symptoms)? @ -complicated Side effects of treatment? @ -volume overload Exacerbation, Progression, or Severe Exacerbation? @ -No Poses a threat to life or bodily function? How? (Chest pain, USA, PA, pneumonia, PE, COPD, DKA, ARF, appy, cholecystitis, CVA, Diverticulitis, Homicidal, Suicidal, threat to staff... and all critical care pts) @ -severe anemia can lead to hemodynamic instability - Lab Data Result diagrams: 09/11/22 05:37 09/10/22 04:33 Lab Results 09/09/22 09/09/22 09/09/22 Range/Units 12:32 12:32 12:32 WBC 5.8 (3.8-10.6) k/uL RBC 2.75 L (3.80-5.40) m/uL Hgb 5.1 L* (11.4-16.0) gm/dL Hct 18.7 L* (34.0-46.0) % MCV 67.7 L (80.0-100.0) fL MCH 18.5 L (25.0-35.0) pg MCHC 27.3 L (31.0-37.0) g/dL RDW 20.6 H (11.5-15.5) % Plt Count 289 (150-450) k/uL MPV 9.0 Neutrophils % % Neutrophils % (Manual) 74 % Lymphocytes % % Lymphocytes % (Manual) 19 % Monocytes % % Monocytes % (Manual) 6 % Eosinophils % % Eosinophils % (Manual) 2 % Basophils % % Basophils % (Manual) 1 % Neutrophils # (1.3-7.7) k/uL Neutrophils # (Manual) 4.29 (1.3-7.7) k/uL Lymphocytes # (1.0-4.8) k/uL Lymphocytes # (Manual) 1.10 (1.0-4.8) k/uL Monocytes # (0-1.0) k/uL Monocytes # (Manual) 0.35 (0-1.0) k/uL Eosinophils # (0-0.7) k/uL Eosinophils # (Manual) 0.12 (0-0.7) k/uL Basophils # (0-0.2) k/uL Basophils # (Manual) 0.06 (0-0.2) k/uL Nucleated RBCs 3 H (0-0) /100 WBC Manual Slide Review Performed Polychromasia Present Hypochromasia Marked Poikilocytosis Moderate Anisocytosis Moderate Microcytosis Marked Sodium 136 L (137-145) mmol/L Potassium 4.1 (3.5-5.1) mmol/L Chloride 106 (98-107) mmol/L Carbon Dioxide 20 L (22-30) mmol/L Anion Gap 10 mmol/L BUN 20 H (7-17) mg/dL Creatinine 0.84 (0.52-1.04) mg/dL Est GFR (CKD-EPI)AfAm 79 (>60 ml/min/1.73 sqM) Est GFR (CKD-EPI)NonAf 69 (>60 ml/min/1.73 sqM) Glucose 142 H (74-99) mg/dL POC Glucose (mg/dL) (70-110) mg/dL POC Glu Feather Washer ID Calcium 8.8 (8.4-10.2) mg/dL Total Bilirubin 0.5 (0.2-1.3) mg/dL AST 25 (14-36) U/L ALT 14 (4-34) U/L Alkaline Phosphatase 68 (38-126) U/L NT-Pro-B Natriuret Pep pg/mL Total Protein 6.1 L (6.3-8.2) g/dL Albumin 3.8 (3.5-5.0) g/dL Blood Type O Positive Blood Type Recheck O Pos Bld Type Recheck Status No Antibody Screen NEGATIVE Crossmatch See Detail Spec Expiration Date 09/12/2022 - 233109/09/22 09/09/22 09/09/22 Range/Units 12:32 17:03 17:30 WBC 7.1 (3.8-10.6) k/uL RBC 2.99 L (3.80-5.40) m/uL Hgb 6.1 L* (11.4-16.0) gm/dL Hct 20.9 L (34.0-46.0) % MCV 69.8 L (80.0-100.0) fL MCH 20.4 L (25.0-35.0) pg MCHC 29.3 L (31.0-37.0) g/dL RDW 22.1 H (11.5-15.5) % Plt Count 261 (150-450) k/uL MPV 9.9 Neutrophils % 66 % Neutrophils % (Manual) % Lymphocytes % 23 % Lymphocytes % (Manual) % Monocytes % 7 % Monocytes % (Manual) % Eosinophils % 2 % Eosinophils % (Manual) % Basophils % 1 % Basophils % (Manual) % Neutrophils # 4.7 (1.3-7.7) k/uL Neutrophils # (Manual) (1.3-7.7) k/uL Lymphocytes # 1.6 (1.0-4.8) k/uL Lymphocytes # (Manual) (1.0-4.8) k/uL Monocytes # 0.5 (0-1.0) k/uL Monocytes # (Manual) (0-1.0) k/uL Eosinophils # 0.1 (0-0.7) k/uL Eosinophils # (Manual) (0-0.7) k/uL Basophils # 0.0 (0-0.2) k/uL Basophils # (Manual) (0-0.2) k/uL Nucleated RBCs (0-0) /100 WBC Manual Slide Review Polychromasia Hypochromasia Marked Poikilocytosis Marked Anisocytosis Moderate Microcytosis Marked Sodium (137-145) mmol/L Potassium (3.5-5.1) mmol/L Chloride (98-107) mmol/L Carbon Dioxide (22-30) mmol/L Anion Gap mmol/L BUN (7-17) mg/dL Creatinine (0.52-1.04) mg/dL Est GFR (CKD-EPI)AfAm (>60 ml/min/1.73 sqM) Est GFR (CKD-EPI)NonAf (>60 ml/min/1.73 sqM) Glucose (74-99) mg/dL POC Glucose (mg/dL) 209 H (70-110) mg/dL POC Glu Feather Washer ID Peterer, Stephy Calcium (8.4-10.2) mg/dL Total Bilirubin (0.2-1.3) mg/dL AST (14-36) U/L ALT (4-34) U/L Alkaline Phosphatase (38-126) U/L NT-Pro-B Natriuret Pep 219 pg/mL Total Protein (6.3-8.2) g/dL Albumin (3.5-5.0) g/dL Blood Type Blood Type Recheck Bld Type Recheck Status Antibody Screen Crossmatch Spec Expiration Date 09/09/22 09/10/22 09/10/22 Range/Units 22:28 04:33 04:33 WBC 6.5 (3.8-10.6) k/uL RBC 3.26 L (3.80-5.40) m/uL Hgb 6.9 L* (11.4-16.0) gm/dL Hct 23.3 L (34.0-46.0) % MCV 71.3 L (80.0-100.0) fL MCH 21.2 L (25.0-35.0) pg MCHC 29.8 L (31.0-37.0) g/dL RDW 21.4 H (11.5-15.5) % Plt Count 240 (150-450) k/uL MPV 8.2 Neutrophils % 58 % Neutrophils % (Manual) 63 % Lymphocytes % 31 % Lymphocytes % (Manual) 32 % Monocytes % 7 % Monocytes % (Manual) 4 % Eosinophils % 2 % Eosinophils % (Manual) 2 % Basophils % 0 % Basophils % (Manual) % Neutrophils # 3.8 (1.3-7.7) k/uL Neutrophils # (Manual) 4.10 (1.3-7.7) k/uL Lymphocytes # 2.0 (1.0-4.8) k/uL Lymphocytes # (Manual) 2.08 (1.0-4.8) k/uL Monocytes # 0.5 (0-1.0) k/uL Monocytes # (Manual) 0.26 (0-1.0) k/uL Eosinophils # 0.1 (0-0.7) k/uL Eosinophils # (Manual) 0.13 (0-0.7) k/uL Basophils # 0.0 (0-0.2) k/uL Basophils # (Manual) (0-0.2) k/uL Nucleated RBCs 1 H (0-0) /100 WBC Manual Slide Review Performed Polychromasia Present Hypochromasia Marked Poikilocytosis Marked Anisocytosis Moderate Microcytosis Marked Sodium 136 L (137-145) mmol/L Potassium 4.3 (3.5-5.1) mmol/L Chloride 105 (98-107) mmol/L Carbon Dioxide 21 L (22-30) mmol/L Anion Gap 10 mmol/L BUN 14 (7-17) mg/dL Creatinine 0.82 (0.52-1.04) mg/dL Est GFR (CKD-EPI)AfAm 82 (>60 ml/min/1.73 sqM) Est GFR (CKD-EPI)NonAf 71 (>60 ml/min/1.73 sqM) Glucose 123 H (74-99) mg/dL POC Glucose (mg/dL) 105 (70-110) mg/dL POC Glu Feather Washer ID Poli Howard Calcium 8.9 (8.4-10.2) mg/dL Total Bilirubin (0.2-1.3) mg/dL AST (14-36) U/L ALT (4-34) U/L Alkaline Phosphatase (38-126) U/L NT-Pro-B Natriuret Pep pg/mL Total Protein (6.3-8.2) g/dL Albumin (3.5-5.0) g/dL Blood Type Blood Type Recheck Bld Type Recheck Status Antibody Screen Crossmatch Spec Expiration Date 09/10/22 Range/Units 06:08 WBC (3.8-10.6) k/uL RBC (3.80-5.40) m/uL Hgb (11.4-16.0) gm/dL Hct (34.0-46.0) % MCV (80.0-100.0) fL MCH (25.0-35.0) pg MCHC (31.0-37.0) g/dL RDW (11.5-15.5) % Plt Count (150-450) k/uL MPV Neutrophils % % Neutrophils % (Manual) % Lymphocytes % % Lymphocytes % (Manual) % Monocytes % % Monocytes % (Manual) % Eosinophils % % Eosinophils % (Manual) % Basophils % % Basophils % (Manual) % Neutrophils # (1.3-7.7) k/uL Neutrophils # (Manual) (1.3-7.7) k/uL Lymphocytes # (1.0-4.8) k/uL Lymphocytes # (Manual) (1.0-4.8) k/uL Monocytes # (0-1.0) k/uL Monocytes # (Manual) (0-1.0) k/uL Eosinophils # (0-0.7) k/uL Eosinophils # (Manual) (0-0.7) k/uL Basophils # (0-0.2) k/uL Basophils # (Manual) (0-0.2) k/uL Nucleated RBCs (0-0) /100 WBC Manual Slide Review Polychromasia Hypochromasia Poikilocytosis Anisocytosis Microcytosis Sodium (137-145) mmol/L Potassium (3.5-5.1) mmol/L Chloride (98-107) mmol/L Carbon Dioxide (22-30) mmol/L Anion Gap mmol/L BUN (7-17) mg/dL Creatinine (0.52-1.04) mg/dL Est GFR (CKD-EPI)AfAm (>60 ml/min/1.73 sqM) Est GFR (CKD-EPI)NonAf (>60 ml/min/1.73 sqM) Glucose (74-99) mg/dL POC Glucose (mg/dL) 164 H (70-110) mg/dL POC Glu Feather Washer ID Poli Howard Calcium (8.4-10.2) mg/dL Total Bilirubin (0.2-1.3) mg/dL AST (14-36) U/L ALT (4-34) U/L Alkaline Phosphatase (38-126) U/L NT-Pro-B Natriuret Pep pg/mL Total Protein (6.3-8.2) g/dL Albumin (3.5-5.0) g/dL Blood Type Blood Type Recheck Bld Type Recheck Status Antibody Screen Crossmatch Spec Expiration Date Disposition Clinical Impression: Severe anemia, Iron deficiency anemia Disposition: ADMITTED IP TO THIS [facility] Condition: Stable Is patient prescribed a controlled substance at d/c from ED?: No Time of Disposition: 13:06 Decision to Admit Reason: Admit from EC Decision Date: 09/09/22 Decision Time: 13:07
[2022-09-09 13:19] LABS: Basophils # (M) 0.06 k/uL (0-0.2); Eosinophils # (M) 0.12 k/uL (0-0.7); Neutrophils % (M) 74 %; Nucleated Red Blood Cells 3 /100 WBC (0-0); Total Cells Counted 200
[2022-09-09 13:20] LABS: Monocytes # (M) 0.35 k/uL (0-1.0); Neutrophils # (M) 4.29 k/uL (1.3-7.7); Polychromasia Present; WBC 5.8 k/uL (3.8-10.6)
[2022-09-09] MEDS ORDERED: ALBUTEROL NEBULIZED 2.5 MG/3 ML INHALATION PRN (16:07)
[2022-09-09] MEDS ORDERED: FLUTICASONE 50MCG/SPRAY NASAL 16GM EA NOSTRIL PRN (16:07)
[2022-09-09] MEDS ORDERED: DEXTROSE 50% SYRINGE 50 ML IVP PRN ×2 (16:09)
--- NOTE | 2022-09-09 16:18 | P.HPIM ---
History of Present Illness H&P Date: 09/09/22 Chief Complaint: Anemia Patient is a 72-year-old female with a past medical history of coronary artery disease and last stent in January 2022, diabetes mellitus, hypertension, hyperlipidemia, GERD, iron deficiency anemia, asthma who was sent to the ED by her PCP for hemoglobin 5.1. In our records patient's last hemoglobin and 02/07/2022 was 12.7. Patient states that she has never received blood transfusion in the past. Patient states that she did receive iron infusion several years ago. Patient admits that she stopped taking her iron supplements 6 months ago because it made her constipated. She denies any melanotic stool. She denies any overt signs of bleeding. She states that she had a colonoscopy and EGD done by less than one year ago and was told that it was unremarkable. Patient states that she had a heart Done in January 2022 and had 2 stents placed. She is on aspirin and Bellant and is compliant with her medications. In the ED patient's hemoglobin was 5.1. 2 units of PRBC were ordered. Patient was then referred for admission. Review of symptoms: 10 ROS reviewed and are negative except as noted in HPI Physical exam General: [Alert and oriented, well nourished, no acute distress]. Eye: [PERRL, EOMI, no conjunctival]. HENT: [Normocephalic, clear tympanic membranes, normal hearing, moist oral mucosa, no scleral icterus, no sinus tenderness]. Neck: [Supple, non-tender, no carotid bruits, no JVD, no lymphadenopathy]. Lungs: [Clear to auscultation and percussion, non-labored respiration]. Heart: [Normal rate, regular rhythm, no murmur, gallop or edema]. Abdomen: [Soft, non-tender, non-distended, normal bowel sounds, no masses]. Musculoskeletal: [Normal range of motion and strength, no tenderness or swelling]. Skin: [Skin is warm, dry and pink, no rashes or lesions]. Neurologic: [Awake, alert, and oriented X3, CN II-XII intact]. Psychiatric: [Cooperative, appropriate mood and affect]. Assessment Acute blood loss anemia Iron deficiency anemia Diabetes mellitus Hypertension Hyperlipidemia GERD Asthma Plan Patient's hemoglobin in January 2023 was around 13. She was then started on dual antiplatelet therapy for cardiac stents. Her hemoglobin on admission is 5.1. Patient denies any overt signs of bleeding. Suspect patient has occult bleeding. We'll consult surgery for possible EGD or colonoscopy We'll start patient on IV Protonix 40 mg twice a day Clear liquid diet We'll consult cardiology to see if he can stop either aspirin Brilinta since his been more than 6 months since patient had a cardiac stent placed. For now we'll resume both Brilinta platelet therapy. We'll consult hematology for IV iron infusion. Patient will be getting 2 units of PRBC in the ED. We'll check CBC after transfusion. Trend CBC daily Hold metformin and glipizide. Sliding scale insulin with Accu-Cheks Resume patient's other home medications CODE STATUS:full code DVT prophylaxis: mechanical Discussed with: Patient, ER, rn Anticipated length of stay < than [address]: home Past Medical History Past Medical History: Blood Disorder, Coronary Artery Disease (CAD), Cancer, COPD, Diabetes Mellitus, Hyperlipidemia, Hypertension Additional Past Medical History / Comment(s): Iron deficiency anemia, hx iron infusions. Lower back pain, , hx migraines, Urinary stress incontinence, Varicose veins, occ edema feet. heart murmur, skin cancer on nose and left arm History of Any Multi-Drug Resistant Organisms: None Reported Past Surgical History: Appendectomy, Bladder Surgery, Heart Catheterization With Stent, Orthopedic Surgery, Tonsillectomy Additional Past Surgical History / Comment(s): Colonoscopy, EGD [place] bladder sling. Lt shoulder rotator cuff x 2, one cardiac stent, skin cancer removed from nose and left arm, mae cataracts Past Anesthesia/Blood Transfusion Reactions: No Reported Reaction Date of Last Stent Placement:: 09-15-2018 Past Psychological History: No Psychological Hx Reported Smoking Status: Current every day smoker Past Alcohol Use History: Rare Past Drug Use History: None Reported - Past Family History Mother Family Medical History: Blood Disorder, Cancer Additional Family Medical History / Comment(s): Kidney cancer Daughter(s) Family Medical History: Cancer Additional Family Medical History / Comment(s): Breast cancer, liver cancer Father Family Medical History: Cancer Additional Family Medical History / Comment(s): Back cancer Medications and Allergies Home Medications Medication Instructions Recorded Confirmed Type Aspirin [Adult Low Dose Aspirin EC] 81 mg PO HS 09/10/18 09/09/22 History Losartan [Cozaar] 75 mg PO DAILY 09/10/18 09/09/22 History Omeprazole [PriLOSEC] 20 mg PO BID 09/10/18 09/09/22 History glipiZIDE [Glucotrol] 10 mg PO DAILY 08/28/20 09/09/22 History Cyanocobalamin (Vitamin B-12) 1,000 mcg PO DAILY 07/29/21 09/09/22 History [Vitamin B-12] Ferrous Sulfate [Feosol] 325 mg PO DAILY 07/29/21 09/09/22 History Fluticasone/Vilanterol [Breo 1 puff INHALATION RT-DAILY PRN 07/29/21 09/09/22 History Ellipta 100-25 Mcg Inhaler] Gabapentin [Neurontin] 300 mg PO TID 07/29/21 09/09/22 History Fluticasone Nasal [place] [Flonase 1 spray EA NOSTRIL DAILY PRN 02/05/22 09/09/22 History Nasal [place]] Metoprolol Succinate [Toprol XL] 100 mg PO DAILY 02/05/22 09/09/22 History Rosuvastatin Calcium [Crestor] 40 mg PO HS 02/05/22 09/09/22 History Ticagrelor [Brilinta] 90 mg PO BID #180 tab 02/07/22 09/09/22 Rx Albuterol Sulfate [Albuterol 1 - 2 puff PO RT-Q6H PRN 09/09/22 09/09/22 History Sulfate Hfa] metFORMIN HCL 1,000 mg PO BID 09/09/22 09/09/22 History Allergies Allergy/AdvReac Type Severity Reaction Status Date / Time No Known Allergies Allergy Verified 09/09/22 12:38 Physical Exam Osteopathic Statement: *. No significant issues noted on an osteopathic structural exam other than those noted in the History and Physical/Consult. Vitals: Vital Signs Temp Pulse Resp BP Pulse Ox 09/09/22 15:00 98 F 80 18 134/54 95 09/09/22 14:45 98 F 81 16 142/89 95 09/09/22 14:30 67 16 146/59 90 L 09/09/22 14:15 80 15 140/67 100 09/09/22 14:00 98.0 F 79 18 119/57 100 09/09/22 13:45 112 H 11 L 119/57 99 09/09/22 13:30 71 7 L 119/57 97 09/09/22 13:15 81 18 119/57 100 09/09/22 13:00 80 16 136/60 95 09/09/22 12:45 61 14 136/60 98 09/09/22 12:30 78 17 136/60 09/09/22 12:15 75 14 136/60 99 09/09/22 12:00 136/60 09/09/22 11:45 71 14 136/60 97 09/09/22 11:30 64 15 136/60 95 09/09/22 11:16 65 22 136/60 100 09/09/22 11:15 21 136/60 97 09/09/22 11:13 100 09/09/22 10:35 97.9 F 71 20 147/74 99 Intake and Output 09/09/22 09/09/22 09/09/22 06:59 14:59 22:59 Intake Total 0 Balance 0 Intake: Blood Product 0 Rc Pheresis As-3 Unit 0 [id number] Other: Weight 86.636 kg Results CBC & Chem 7: 09/09/22 12:32 09/09/22 12:32 Labs: Abnormal Lab Results - Last 24 Hours (Table) 09/09/22 09/09/22 09/09/22 Range/Units 12:32 12:32 12:32 RBC 2.75 L (3.80-5.40) m/uL Hgb 5.1 L* (11.4-16.0) gm/dL Hct 18.7 L* (34.0-46.0) % MCV 67.7 L (80.0-100.0) fL MCH 18.5 L (25.0-35.0) pg MCHC 27.3 L (31.0-37.0) g/dL RDW 20.6 H (11.5-15.5) % Nucleated RBCs 3 H (0-0) /100 WBC Sodium 136 L (137-145) mmol/L Carbon Dioxide 20 L (22-30) mmol/L BUN 20 H (7-17) mg/dL Glucose 142 H (74-99) mg/dL Total Protein 6.1 L (6.3-8.2) g/dL Crossmatch See Detail
[2022-09-09 17:05] LABS: Glucose,Whole Blood 209 mg/dL (70-110)
[2022-09-09 17:38] LABS: Anisocytosis Moderate; Basophils % (A) 1 %; Eosinophils # (A) 0.1 k/uL (0-0.7); Eosinophils % (A) 2 %; HCT 20.9 % (34.0-46.0); Hypochromasia Marked; Lymphocytes # (A) 1.6 k/uL (1.0-4.8); Lymphocytes % (A) 23 %; MCH 20.4 pg (25.0-35.0); MCHC 29.3 g/dL (31.0-37.0); MCV 69.8 fL (80.0-100.0); Mean Platelet Volume 9.9; Microcytosis Marked; Monocytes # (A) 0.5 k/uL (0-1.0); Monocytes % (A) 7 %; Neutrophils # (A) 4.7 k/uL (1.3-7.7); Neutrophils % (A) 66 %; Platelet Count 261 k/uL (150-450); Poikilocytosis Marked; RBC 2.99 m/uL (3.80-5.40); RDW 22.1 % (11.5-15.5); WBC 7.1 k/uL (3.8-10.6)
[2022-09-09 17:53] LABS: HGB 6.1 gm/dL (11.4-16.0)
[2022-09-09] MEDS: INSULIN ASPART (NovoLOG) 100 UNIT/ML VIAL SQ SCH ×2 (18:40→22:29)
[2022-09-09] MEDS ORDERED: TICAGRELOR 90 MG TAB PO SCH (21:00)
[2022-09-09] MEDS: GABAPENTIN 300 MG CAP PO SCH (22:29)
[2022-09-09] MEDS: PANTOPRAZOLE 40 MG/10 ML VIAL IVP SCH (22:29)
[2022-09-09 22:30] LABS: Glucose,Whole Blood 105 mg/dL (70-110)
[2022-09-09] MEDS: ATORVASTATIN 80 MG TAB PO SCH (22:30)
[2022-09-09] MEDS: ASPIRIN 81 MG PO SCH (23:19)
[2022-09-10 05:27] LABS: African American GFR (CKD) 82 (>60 ml/min/1.73 sqM); Anion Gap 10 mmol/L; Blood Urea Nitrogen 14 mg/dL (7-17); Calcium 8.9 mg/dL (8.4-10.2); Carbon Dioxide 21 mmol/L (22-30); Chloride 105 mmol/L (98-107); Glucose 123 mg/dL (74-99); Non-African American GFR(CKD) 71 (>60 ml/min/1.73 sqM); Potassium 4.3 mmol/L (3.5-5.1); Sodium 136 mmol/L (137-145)
[2022-09-10 05:38] LABS: Anisocytosis Moderate; Basophils % (A) 0 %; Eosinophils # (A) 0.1 k/uL (0-0.7); Eosinophils % (A) 2 %; HCT 23.3 % (34.0-46.0); Hypochromasia Marked; Lymphocytes % (A) 31 %; MCH 21.2 pg (25.0-35.0); MCHC 29.8 g/dL (31.0-37.0); MCV 71.3 fL (80.0-100.0); Mean Platelet Volume 8.2; Microcytosis Marked; Monocytes # (A) 0.5 k/uL (0-1.0); Monocytes % (A) 7 %; Neutrophils # (A) 3.8 k/uL (1.3-7.7); Neutrophils % (A) 58 %; Platelet Count 240 k/uL (150-450); Poikilocytosis Marked; RBC 3.26 m/uL (3.80-5.40); RDW 21.4 % (11.5-15.5)
[2022-09-10 06:08] LABS: Glucose,Whole Blood 164 mg/dL (70-110)
[2022-09-10] MEDS: INSULIN ASPART (NovoLOG) 100 UNIT/ML VIAL SQ SCH ×4 (06:23→20:54)
[2022-09-10 06:24] LABS: HGB 6.9 gm/dL (11.4-16.0)
[2022-09-10] MEDS: SYMBICORT 80-4.5 MCG INHALER INHALATION SCH ×2 (07:30→20:57)
[2022-09-10] MEDS: LOSARTAN 25 MG TAB PO SCH (09:05)
[2022-09-10] MEDS: METOPROLOL SUCCINATE (ER) 100 MG TAB.ER.24H PO SCH (09:06)
[2022-09-10] MEDS: CYANOCOBALAMIN 500 MCG TAB PO SCH (09:06)
[2022-09-10] MEDS: PANTOPRAZOLE 40 MG/10 ML VIAL IVP SCH ×2 (09:06→20:55)
[2022-09-10] MEDS: GABAPENTIN 300 MG CAP PO SCH ×3 (09:06→21:11)
--- NOTE | 2022-09-10 10:16 | P.CRDCN ---
History of Present Illness Consult date: 09/10/22 Reason for Consult (text): Anemia and on dual antiplatelet therapy History of present illness: History of present illness: This is a 72-year-old female patient of Dr. Dumont for past history of coronary artery disease with PCI of the left main 02/06/2022, previous history of stent to the RCA in 2019, history of intermediate disease bilateral carotids, valvular heart disease with mitral regurgitation and pulmonary hypertension, TR, COPD, hypertension, dyslipidemia, lower extremity arthritis, active tobacco use and dependence at one pack per day. Patient was seen at her family physician's office was found to have a hemoglobin of 5.1 and was sent into the hospital for further evaluation. Hemoglobin upon presentation was 5.1. She is status post transfusion of 2 units of packed RBCs and hemoglobin is now 6.9 this morning. Patient does have history of anemia and followed up with Dr. Ruby and underwent iron infusion 3 1-1/2 years ago. She also had upper and lower scopes done by Dr. Stevens approximately one year ago but has not had capsule endoscopy performed. Details are not available. We have been asked to evaluate the patie nt due to anemia and the fact that she is on dual antiplatelet therapy. Patient denies having any chest pain. She states she has some shortness of breath with walking 50-100 feet. She states she is sometimes has dizziness when she first stands up. She states that she has been having difficulty, back pain and palpitations. Regarding anemia, patient denies having any blood or black stools, no blood in her urine, no unusual bruising or other bleeding. Initial hemoglobin 5.1 currently at 6.9. WBC 5.8, platelet count 289. Sodium 136, potassium 4.3, BUN 14 creatinine 0.82. ProBNP 219. Liver function tests normal. Calcium 8.8. Blood sugar 123. Home cardiac medications: Aspirin 81 mg daily, ferrous sulfate 325 mg daily, losartan 75 mg daily, Toprol-XL 100 mg daily, Crestor 40 mg at bedtime, Brilinta 90 mg twice daily. Echocardiogram performed in the office on 08/21/2022 revealed EF 55-60%, normal LV size and function, grade 2 diastolic dysfunction, mild left ventricular hypertrophy. Trace aortic regurgitation. Ascending aorta enlarged. Mild to moderate MR. Moderate TR, PAS P 48 mmHg. Mild pulmonic regurgitation Review Of Systems: At the time of my evaluation: Constitutional: No fever, no chills. No weakness, fatigue or lethargy. EENT: No headache. Reports dizziness when she first stands. Lungs: No shortness of breath, cough, no sputum production. No wheezing. Shortness of breath with exertion Cardiovascular: No chest pain, no lower extremity edema. Reports palpitations. No paroxysmal nocturnal dyspnea. No orthopnea. No lightheadedness or dizziness. No syncopal episodes. Abdominal: No abdominal pain. No nausea, vomiting. No diarrhea. No constipation. No bloody or tarry stools. Genitourinary: No dysuria.. No urinary retention. Musculoskeletal: No myalgias. No muscle weakness, no frequent falls. No back pain. No neck pain. Integumentary: No wounds. No rash. No unusual bruising. Neurologic: No aphasia. No facial droop. No change in mentation. No head injury. No headache. Physical examination: Gen: This is a 72-year-old female. She is resting in bed and appears to be comfortable and in no acute distress. VS: reviewed HEENT: Head is atraumatic, normocephalic. Pupils equal, round. Sclerae is anicteric. NECK: Supple. No JVD. . LUNGS: Clear to auscultation. No wheezes or rhonchi. No intercostal retractions. HEART: Regular rate and rhythm. Systolic murmur. ABDOMEN: Soft No tenderness. EXTREMITIES: No pedal edema. No calf tenderness. NEUROLOGICAL: Patient is awake, alert and oriented x3. Assessment: Significant anemia of unclear etiology Rule out GI bleed, Dr. Stevens on consult as well as hematology Coronary artery disease with PCI most recently 01/2022 Valvular heart disease with mitral regurgitation, TR and pulmonary hypertension COPD Hypertension Active tobacco use and dependence Plan: Discontinue Brilinta and continue patient on aspirin 81 mg daily only No need to repeat echocardiogram as this was done in the office in July Further recommendations to follow based upon clinical course Thank you kindly for this consultation. Nurse practitioner note has been reviewed, I agree with documented findings and plan of care. Patient was seen and examined. Past Medical History Past Medical History: Blood Disorder, Coronary Artery Disease (CAD), Cancer, COPD, Diabetes Mellitus, Hyperlipidemia, Hypertension Additional Past Medical History / Comment(s): Iron deficiency anemia, hx iron infusions. Lower back pain, , hx migraines, Urinary stress incontinence, Varicose veins, occ edema feet. heart murmur, skin cancer on nose and left arm History of Any Multi-Drug Resistant Organisms: None Reported Past Surgical History: Appendectomy, Bladder Surgery, Heart Catheterization With Stent, Orthopedic Surgery, Tonsillectomy Additional Past Surgical History / Comment(s): Colonoscopy, EGD [place] bladder sling. Lt shoulder rotator cuff x 2, one cardiac stent, skin cancer removed from nose and left arm, mae cataracts Past Anesthesia/Blood Transfusion Reactions: No Reported Reaction Date of Last Stent Placement:: 01/28/2022 Past Psychological History: No Psychological Hx Reported Smoking Status: Current every day smoker Past Alcohol Use History: Rare Additional Past Alcohol Use History / Comment(s): Smokes 1 PPD, since 1965 est Past Drug Use History: None Reported - Past Family History Mother Family Medical History: Blood Disorder, Cancer Additional Family Medical History / Comment(s): Kidney cancer Daughter(s) Family Medical History: Cancer Additional Family Medical History / Comment(s): Breast cancer, liver cancer Father Family Medical History: Cancer Additional Family Medical History / Comment(s): Back cancer Medications and Allergies Home Medications Medication Instructions Recorded Confirmed Type Aspirin [Adult Low Dose Aspirin EC] 81 mg PO HS 09/10/18 09/09/22 History Losartan [Cozaar] 75 mg PO DAILY 09/10/18 09/09/22 History Omeprazole [PriLOSEC] 20 mg PO BID 09/10/18 09/09/22 History glipiZIDE [Glucotrol] 10 mg PO DAILY 08/28/20 09/09/22 History Cyanocobalamin (Vitamin B-12) 1,000 mcg PO DAILY 07/29/21 09/09/22 History [Vitamin B-12] Ferrous Sulfate [Feosol] 325 mg PO DAILY 07/29/21 09/09/22 History Fluticasone/Vilanterol [Breo 1 puff INHALATION RT-DAILY PRN 07/29/21 09/09/22 History Ellipta 100-25 Mcg Inhaler] Gabapentin [Neurontin] 300 mg PO TID 07/29/21 09/09/22 History Fluticasone Nasal [place] [Flonase 1 spray EA NOSTRIL DAILY PRN 02/05/22 09/09/22 History Nasal [place]] Metoprolol Succinate [Toprol XL] 100 mg PO DAILY 02/05/22 09/09/22 History Rosuvastatin Calcium [Crestor] 40 mg PO HS 02/05/22 09/09/22 History Ticagrelor [Brilinta] 90 mg PO BID #180 tab 02/07/22 09/09/22 Rx Albuterol Sulfate [Albuterol 1 - 2 puff PO RT-Q6H PRN 09/09/22 09/09/22 History Sulfate Hfa] metFORMIN HCL 1,000 mg PO BID 09/09/22 09/09/22 History Allergies Allergy/AdvReac Type Severity Reaction Status Date / Time No Known Allergies Allergy Verified 09/09/22 12:38 Physical Exam Vitals: Vital Signs Temp Pulse Pulse Resp BP BP Pulse Ox 09/10/22 07:00 98.5 F 66 16 101/59 99 09/10/22 02:12 97.7 F 76 16 137/61 96 09/10/22 02:00 60 18 09/09/22 22:30 98.2 F 77 15 142/56 99 09/09/22 21:44 98.2 F 64 18 130/53 98 09/09/22 20:53 65 16 147/62 99 09/09/22 18:49 98.5 F 75 18 140/60 96 09/09/22 18:29 98.4 F 75 18 122/51 97 09/09/22 18:13 98.6 F 80 18 137/52 96 09/09/22 17:45 67 18 130/53 98 09/09/22 17:00 82 18 126/65 99 09/09/22 16:00 83 18 107/61 99 09/09/22 15:00 98 F 77 18 134/54 99 09/09/22 14:45 98 F 81 16 142/89 95 09/09/22 14:30 67 16 146/59 90 L 09/09/22 14:15 80 15 140/67 100 09/09/22 14:00 98.0 F 79 18 119/57 100 09/09/22 13:45 112 H 11 L 119/57 99 09/09/22 13:30 71 7 L 119/57 97 09/09/22 13:15 81 18 119/57 100 09/09/22 13:00 80 16 136/60 95 06/13/23 12:45 61 14 136/60 98 09/09/22 12:30 78 17 136/60 09/09/22 12:15 75 14 136/60 99 09/09/22 12:00 136/60 09/09/22 11:45 71 14 136/60 97 09/09/22 11:30 64 15 136/60 95 09/09/22 11:16 65 22 136/60 100 09/09/22 11:15 21 136/60 97 09/09/22 11:13 100 09/09/22 10:35 97.9 F 71 20 147/74 99 Intake and Output 09/09/22 09/10/22 09/10/22 22:59 06:59 14:59 Intake Total 585 Balance 585 Intake: Blood Product 585 Rc As-1 Unit 310 [id number] Rc Pheresis As-3 Unit 275 [id number] Other: # Voids 1 Weight 86.636 kg Results 09/10/22 04:33 09/10/22 04:33 Cardiac Enzymes 09/09/22 Range/Units 12:32 AST 25 (14-36) U/L CBC 09/09/22 09/09/22 09/10/22 Range/Units 12:32 17:30 04:33 WBC 5.8 7.1 6.6 (3.8-10.6) k/uL RBC 2.75 L 2.99 L 3.26 L (3.80-5.40) m/uL Hgb 5.1 L* 6.1 L* 6.9 L* (11.4-16.0) gm/dL Hct 18.7 L* 20.9 L 23.3 L (34.0-46.0) % Plt Count 289 261 240 (150-450) k/uL Comprehensive Metabolic Panel 09/09/22 09/10/22 Range/Units 12:32 04:33 Sodium 136 L 136 L (137-145) mmol/L Potassium 4.1 4.3 (3.5-5.1) mmol/L Chloride 106 105 (98-107) mmol/L Carbon Dioxide 20 L 21 L (22-30) mmol/L BUN 20 H 14 (7-17) mg/dL Creatinine 0.84 0.82 (0.52-1.04) mg/dL Glucose 142 H 123 H (74-99) mg/dL Calcium 8.8 8.9 (8.4-10.2) mg/dL AST 25 (14-36) U/L ALT 14 (4-34) U/L Alkaline Phosphatase 68 (38-126) U/L Total Protein 6.1 L (6.3-8.2) g/dL Albumin 3.8 (3.5-5.0) g/dL Current Medications Generic Name Dose Route Start Last Admin Trade Name Freq PRN Reason Stop Dose Admin Albuterol Sulfate 2.5 mg 09/09/22 16:07 Albuterol Nebulized 2.5 Mg/3 Ml INHALATION RT-Q6H PRN Shortness Of Breath Aspirin 81 mg 09/09/22 21:00 09/09/22 23:19 Aspirin 81 Mg PO 81 mg HS JAMIE Administration Atorvastatin Calcium 80 mg 09/09/22 21:00 09/09/22 22:30 Atorvastatin 80 Mg Tab PO 80 mg HS JAMIE Administration Budesonide/Formoterol Fumarate 2 puff 09/10/22 08:00 09/10/22 07:30 Symbicort 80-4.5 Mcg Inhaler INHALATION 2 puff RT-BID JAMIE Administration Cyanocobalamin 1,000 mcg 09/10/22 09:00 Cyanocobalamin 500 Mcg Tab PO DAILY JAMIE Dextrose/Water 25 ml 09/09/22 16:09 Dextrose 50% Syringe 50 Ml IVP PER PROTOCOL PRN Hypoglycemia Protocol Dextrose/Water 50 ml 09/09/22 16:09 Dextrose 50% Syringe 50 Ml IVP PER PROTOCOL PRN Hypoglycemia Protocol Fluticasone Propionate 1 spray 09/09/22 16:07 Fluticasone 50mcg/[place] Nasal 16gm EA NOSTRIL DAILY PRN Sinus Symptoms Gabapentin 300 mg 09/09/22 22:00 09/09/22 22:29 Gabapentin 300 Mg Cap PO 300 mg TID JAMIE Administration Insulin Aspart 0 unit 09/09/22 17:30 09/10/22 06:23 Insulin Aspart (Novolog) 100 Unit/Ml Vial SQ 1 unit ACHS JAMIE Administration Protocol Losartan Potassium 75 mg 09/10/22 09:00 Losartan 25 Mg Tab PO DAILY JAMIE Metoprolol Succinate 100 mg 09/10/22 09:00 Metoprolol Succinate (Er) 100 Mg Tab.Er.24h PO DAILY JAMIE Naloxone HCl 0.2 mg 09/09/22 13:07 Naloxone 0.4 Mg/Ml 1 Ml Vial IV Q2M PRN Opioid Reversal Pantoprazole Sodium 40 mg 09/09/22 21:00 09/09/22 22:29 Pantoprazole 40 Mg/10 Ml Vial IVP 40 mg BID JAMIE Administration Ticagrelor 90 mg 09/09/22 21:00 09/09/22 23:19 Ticagrelor 90 Mg Tab PO 90 mg BID JAMIE Administration Intake and Output 09/09/22 09/10/22 09/10/22 22:59 06:59 14:59 Intake Total 585 Balance 585 Intake: Blood Product 585 Rc As-1 Unit 310 [id number] Rc Pheresis As-3 Unit 275 [id number] Other: # Voids 1 Weight 86.636 kg 09/10/22 04:33 09/10/22 04:33
[2022-09-10 11:35] LABS: Eosinophils # (M) 0.13 k/uL (0-0.7); Monocytes # (M) 0.26 k/uL (0-1.0); Neutrophils % (M) 63 %; Nucleated Red Blood Cells 1 /100 WBC (0-0); Total Cells Counted 200
[2022-09-10 11:36] LABS: Lymphocytes # (M) 2.08 k/uL (1.0-4.8); WBC 6.5 k/uL (3.8-10.6)
--- NOTE | 2022-09-10 11:36 | P.PN ---
Subjective Progress Note Date: 09/10/22 Hospital course Patient is a 72-year-old female with a past medical history of coronary artery disease and last stent in January 2022, diabetes mellitus, hypertension, hyperlipidemia, GERD, iron deficiency anemia, asthma who was sent to the ED by her PCP for hemoglobin 5.1. In our records patient's last hemoglobin and 02/07/2022 was 12.7. Patient states that she has never received blood tr ansfusion in the past. Patient states that she did receive iron infusion several years ago. Patient admits that she stopped taking her iron supplements 6 months ago because it made her constipated. She denies any melanotic stool. She denies any overt signs of bleeding. She states that she had a colonoscopy and EGD done by less than one year ago and was told that it was unremarkable. Patient states that she had a heart Done in January 2022 and had 2 stents placed. She is on aspirin and Bellant and is compliant with her medications. In the ED patient's hemoglobin was 5.1. 2 units of PRBC were ordered. Patient was then referred for admission. The phone the patient's hemoglobin was 6.9. He was transfused another unit of PRBC. Patient was seen by cardiology and they said okay to stop his Brilinta. Subjective Patient continues to deny any signs of GI bleed. Patient was emotional this morning because of her medical condition. I tried to provide patient reassurance that the workup is still in progress. 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 surgery consult pending Hold metformin and glipizide. Sliding scale insulin with Accu-Cheks Resume patient's other home medications CODE STATUS: FULL CODE. DVT prophylaxis: SCDs. Anticipated discharge place: Home Anticipated discharge time: Depending on clinical course I have reviewed the following aerodynamic consultant notes: Cardiology I have reviewed the results of the following tests: CBC and BMP I have ordered the following tests: CBC I have discussed the care of this patient with the following independent historian: None I have independently interpreted the following test below: CBC I have discussed the management of this patient with the following physician: None This patient has a moderate risk of morbidity due to the following reasons: Acute blood loss anemia that can be life-threatening or may cause injury to bodily function Objective - Vital Signs Vital signs: Vital Signs Temp 98.5 F 09/10/22 07:00 Pulse 66 09/10/22 07:00 Resp 16 09/10/22 09:00 BP 101/59 09/10/22 07:00 Pulse Ox 99 09/10/22 07:00 FiO2 Intake & Output 09/09/22 09/10/22 09/10/22 18:59 06:59 18:59 Intake Total 275 310 Balance 275 310 Weight 86.636 kg 86.636 kg Intake: Blood Product 275 310 Rc As-1 Unit 0 310 [id number] Rc Pheresis As-3 Unit 275 [id number] Other: Voiding Method Toilet # Voids 1 - Labs CBC & Chem 7: 09/10/22 04:33 09/10/22 04:33 Labs: Abnormal Lab Results - Last 24 Hours (Table) 09/09/22 09/09/22 09/09/22 Range/Units 12:32 12:32 12:32 RBC 2.75 L (3.80-5.40) m/uL Hgb 5.1 L* (11.4-16.0) gm/dL Hct 18.7 L* (34.0-46.0) % MCV 67.7 L (80.0-100.0) fL MCH 18.5 L (25.0-35.0) pg MCHC 27.3 L (31.0-37.0) g/dL RDW 20.6 H (11.5-15.5) % Nucleated RBCs 3 H (0-0) /100 WBC Sodium 136 L (137-145) mmol/L Carbon Dioxide 20 L (22-30) mmol/L BUN 20 H (7-17) mg/dL Glucose 142 H (74-99) mg/dL POC Glucose (mg/dL) (70-110) mg/dL Total Protein 6.1 L (6.3-8.2) g/dL Crossmatch See Detail 09/09/22 09/09/22 09/10/22 Range/Units 17:03 17:30 04:33 RBC 2.99 L (3.80-5.40) m/uL Hgb 6.1 L* (11.4-16.0) gm/dL Hct 20.9 L (34.0-46.0) % MCV 69.8 L (80.0-100.0) fL MCH 20.4 L (25.0-35.0) pg MCHC 29.3 L (31.0-37.0) g/dL RDW 22.1 H (11.5-15.5) % Nucleated RBCs (0-0) /100 WBC Sodium 136 L (137-145) mmol/L Carbon Dioxide 21 L (22-30) mmol/L BUN (7-17) mg/dL Glucose 123 H (74-99) mg/dL POC Glucose (mg/dL) 209 H (70-110) mg/dL Total Protein (6.3-8.2) g/dL Crossmatch 09/10/22 09/10/22 Range/Units 04:33 06:08 RBC 3.26 L (3.80-5.40) m/uL Hgb 6.9 L* (11.4-16.0) gm/dL Hct 23.3 L (34.0-46.0) % MCV 71.3 L (80.0-100.0) fL MCH 21.2 L (25.0-35.0) pg MCHC 29.8 L (31.0-37.0) g/dL RDW 21.4 H (11.5-15.5) % Nucleated RBCs (0-0) /100 WBC Sodium (137-145) mmol/L Carbon Dioxide (22-30) mmol/L BUN (7-17) mg/dL Glucose (74-99) mg/dL POC Glucose (mg/dL) 164 H (70-110) mg/dL Total Protein (6.3-8.2) g/dL Crossmatch
[2022-09-10 11:37] LABS: Polychromasia Present
[2022-09-10 12:17] LABS: Glucose,Whole Blood 179 mg/dL (70-110)
[2022-09-10 12:40] LABS: Anisocytosis Moderate; HCT 24.7 % (34.0-46.0); HGB 7.3 gm/dL (11.4-16.0); Hypochromasia Marked; MCH 21.4 pg (25.0-35.0); MCHC 29.6 g/dL (31.0-37.0); MCV 72.4 fL (80.0-100.0); Mean Platelet Volume 8.8; Microcytosis Marked; Platelet Count 240 k/uL (150-450); Poikilocytosis Marked; RBC 3.41 m/uL (3.80-5.40); RDW 21.2 % (11.5-15.5)
--- NOTE | 2022-09-10 13:13 | P.GSCN ---
History of Present Illness Consult date: 09/10/22 History of present illness: CHIEF COMPLAINT: Anemia HISTORY OF PRESENT ILLNESS: This is a 72-year-old female presented to the hospital due to a low hemoglobin on outpatient labs. Hemoglobin was noted at 5.1. She did receive 2 units of blood and hemoglobin came up to 6.9 and she is scheduled for another unit of blood today. Patient denies any blood in her stools or any black stools. She does complain of right lower quadrant intermittent crampy abdominal pain for the past 2 weeks. I'm she's had a history of iron deficiency anemia and has required IV iron in the past. She reports that she had been on oral iron but stopped it about 6 months ago due to constipation. She reports her stool for occult blood was negative. Patient also reports that she's had intermittent right upper quadrant and left upper quadrant abdominal pain at times. Last EGD and colonoscopy was [address] Recinos. Patient reports that was normal. She does take Brilenta for coronary artery disease with cardiac stents. Stents were placed in January 2022. Brilenta is currently on hold. PAST MEDICAL HISTORY: See below PAST SURGICAL HISTORY: See below MEDICATIONS: See below ALLERGIES: See below SOCIAL HISTORY: No illicit drug use. REVIEW OF SYSTEMS: CONSTITUTIONAL: Denies fever or chills. HEENT: Denies blurred vision, vision changes, or eye pain. Denies hemoptysis CARDIOVASCULAR: Denies chest pain or pressure. RESPIRATORY: No shortness of breath. GASTROINTESTINAL: See HPI for pertinent findings HEMATOLOGIC: Denies bleeding disorders. GENITOURINARY: Denies any blood in urine or increased urinary frequency. SKIN: Denies pruitis. Denies rash. PHYSICAL EXAM: VITAL SIGNS: Reviewed GENERAL: Well-developed in no acute distress. HEENT: No sclera icterus. Extraocular movements grossly intact. Moist buccal mucosa. Head is atraumatic, normocephalic. No nasal drainage. ABDOMEN: Soft. Nondistended. Tenderness to palpation right lower quadrant and left lower quadrant NEUROLOGIC: Alert and oriented. Cranial nerves II through XII grossly intact. LABORATORY DATA: WBC 6.4 hemoglobin 5.1 trending up to 7.3 platelets 240 Sodium 136 potassium 4.3 creatinine 0.82 IMAGING: ASSESSMENT: 1. Microcytic anemia 2. History of iron deficiency anemia PLAN: -Patient had EGD and colonoscopy about a year ago with Dr. Stevens. Dr. Stevens will review those results from the office. -No plans for repeat endoscopies at this time -Agree with a hematology consult -Check stool for occult blood -Continue to monitor hemoglobin -Continue to monitor for any signs or symptoms of bleeding -Continue to hold Brilenta Thank you for this consultation Physician Chief Accounting Officer note has been reviewed by physician. Signing provider agrees with the documented findings, assessment, and plan of care. Patient known to our service. Apparently had EGD and colonoscopy last year. Those results are not available to me currently. We will review the previous EGD and colonoscopy reports. Check stool for occult blood. Will reevaluate tomorrow. Past Medical History Past Medical History: Blood Disorder, Coronary Artery Disease (CAD), Cancer, COPD, Diabetes Mellitus, Hyperlipidemia, Hypertension Additional Past Medical History / Comment(s): Iron deficiency anemia, hx iron infusions. Lower back pain, , hx migraines, Urinary stress incontinence, Varicose veins, occ edema feet. heart murmur, skin cancer on nose and left arm History of Any Multi-Drug Resistant Organisms: None Reported Past Surgical History: Appendectomy, Bladder Surgery, Heart Catheterization With Stent, Orthopedic Surgery, Tonsillectomy Additional Past Surgical History / Comment(s): Colonoscopy, EGD [place] bladder sling. Lt shoulder rotator cuff x 2, one cardiac stent, skin cancer removed from nose and left arm, mae cataracts Past Anesthesia/Blood Transfusion Reactions: No Reported Reaction Date of Last Stent Placement:: 01/28/2022 Past Psychological History: No Psychological Hx Reported Smoking Status: Current every day smoker Past Alcohol Use History: Rare Additional Past Alcohol Use History / Comment(s): Smokes 1 PPD, since 1965 est Past Drug Use History: None Reported - Past Family History Mother Family Medical History: Blood Disorder, Cancer Additional Family Medical History / Comment(s): Kidney cancer Daughter(s) Family Medical History: Cancer Additional Family Medical History / Comment(s): Breast cancer, liver cancer Father Family Medical History: Cancer Additional Family Medical History / Comment(s): Back cancer Medications and Allergies Home Medications Medication Instructions Recorded Confirmed Type Aspirin [Adult Low Dose Aspirin EC] 81 mg PO HS 09/10/18 09/09/22 History Losartan [Cozaar] 75 mg PO DAILY 09/10/18 09/09/22 History Omeprazole [PriLOSEC] 20 mg PO BID 09/10/18 09/09/22 History glipiZIDE [Glucotrol] 10 mg PO DAILY 08/28/20 09/09/22 History Cyanocobalamin (Vitamin B-12) 1,000 mcg PO DAILY 07/29/21 09/09/22 History [Vitamin B-12] Ferrous Sulfate [Feosol] 325 mg PO DAILY 07/29/21 09/09/22 History Fluticasone/Vilanterol [Breo 1 puff INHALATION RT-DAILY PRN 07/29/21 09/09/22 History Ellipta 100-25 Mcg Inhaler] Gabapentin [Neurontin] 300 mg PO TID 07/29/21 09/09/22 History Fluticasone Nasal [place] [Flonase 1 spray EA NOSTRIL DAILY PRN 02/05/22 09/09/22 History Nasal [place]] Metoprolol Succinate [Toprol XL] 100 mg PO DAILY 02/05/22 09/09/22 History Rosuvastatin Calcium [Crestor] 40 mg PO HS 02/05/22 09/09/22 History Ticagrelor [Brilinta] 90 mg PO BID #180 tab 02/07/22 09/09/22 Rx Albuterol Sulfate [Albuterol 1 - 2 puff PO RT-Q6H PRN 09/09/22 09/09/22 History Sulfate Hfa] metFORMIN HCL 1,000 mg PO BID 09/09/22 09/09/22 History Allergies Allergy/AdvReac Type Severity Reaction Status Date / Time No Known Allergies Allergy Verified 09/09/22 12:38 Surgical - Exam Vital Signs Temp Pulse Resp BP Pulse Ox 97.9 F 71 20 147/74 99 09/09/22 10:35 09/09/22 10:35 09/09/22 10:35 09/09/22 10:35 09/09/22 10:35 Results - Labs 09/10/22 12:06 09/10/22 04:33 Abnormal Lab Results - Last 24 Hours (Table) 09/09/22 09/09/22 09/09/22 Range/Units 12:32 12:32 17:03 RBC 2.75 L (3.80-5.40) m/uL Hgb 5.1 L* (11.4-16.0) gm/dL Hct 18.7 L* (34.0-46.0) % MCV 67.7 L (80.0-100.0) fL MCH 18.5 L (25.0-35.0) pg MCHC 27.3 L (31.0-37.0) g/dL RDW 20.6 H (11.5-15.5) % Nucleated RBCs 3 H (0-0) /100 WBC Sodium (137-145) mmol/L Carbon Dioxide (22-30) mmol/L Glucose (74-99) mg/dL POC Glucose (mg/dL) 209 H (70-110) mg/dL Crossmatch See Detail 09/09/22 09/10/22 09/10/22 Range/Units 17:30 04:33 04:33 RBC 2.99 L 3.26 L (3.80-5.40) m/uL Hgb 6.1 L* 6.9 L* (11.4-16.0) gm/dL Hct 20.9 L 23.3 L (34.0-46.0) % MCV 69.8 L 71.3 L (80.0-100.0) fL MCH 20.4 L 21.2 L (25.0-35.0) pg MCHC 29.3 L 29.8 L (31.0-37.0) g/dL RDW 22.1 H 21.4 H (11.5-15.5) % Nucleated RBCs 1 H (0-0) /100 WBC Sodium 136 L (137-145) mmol/L Carbon Dioxide 21 L (22-30) mmol/L Glucose 123 H (74-99) mg/dL POC Glucose (mg/dL) (70-110) mg/dL Crossmatch 09/10/22 09/10/22 09/10/22 Range/Units 06:08 12:06 12:16 RBC 3.41 L (3.80-5.40) m/uL Hgb 7.3 L (11.4-16.0) gm/dL Hct 24.7 L (34.0-46.0) % MCV 72.4 L (80.0-100.0) fL MCH 21.4 L (25.0-35.0) pg MCHC 29.6 L (31.0-37.0) g/dL RDW 21.2 H (11.5-15.5) % Nucleated RBCs (0-0) /100 WBC Sodium (137-145) mmol/L Carbon Dioxide (22-30) mmol/L Glucose (74-99) mg/dL POC Glucose (mg/dL) 164 H 179 H (70-110) mg/dL Crossmatch Diabetes panel 09/10/22 Range/Units 04:33 Sodium 136 L (137-145) mmol/L Potassium 4.3 (3.5-5.1) mmol/L Chloride 105 (98-107) mmol/L Carbon Dioxide 21 L (22-30) mmol/L BUN 14 (7-17) mg/dL Creatinine 0.82 (0.52-1.04) mg/dL Glucose 123 H (74-99) mg/dL Calcium 8.9 (8.4-10.2) mg/dL Calcium panel 09/10/22 Range/Units 04:33 Calcium 8.9 (8.4-10.2) mg/dL Pituitary panel 09/10/22 Range/Units 04:33 Sodium 136 L (137-145) mmol/L Potassium 4.3 (3.5-5.1) mmol/L Chloride 105 (98-107) mmol/L Carbon Dioxide 21 L (22-30) mmol/L BUN 14 (7-17) mg/dL Creatinine 0.82 (0.52-1.04) mg/dL Glucose 123 H (74-99) mg/dL Calcium 8.9 (8.4-10.2) mg/dL Adrenal panel 09/10/22 Range/Units 04:33 Sodium 136 L (137-145) mmol/L Potassium 4.3 (3.5-5.1) mmol/L Chloride 105 (98-107) mmol/L Carbon Dioxide 21 L (22-30) mmol/L BUN 14 (7-17) mg/dL Creatinine 0.82 (0.52-1.04) mg/dL Glucose 123 H (74-99) mg/dL Calcium 8.9 (8.4-10.2) mg/dL
[2022-09-10 13:23] LABS: Monocytes # (M) 0.69 k/uL (0-1.0); Myelocytes # (M) 0.06 k/uL (0); Myelocytes % 1 %; Neutrophils # (M) 3.97 k/uL (1.3-7.7); Neutrophils % (M) 63 %; Nucleated Red Blood Cells 2 /100 WBC (0-0); Total Cells Counted 200; WBC 6.3 k/uL (3.8-10.6)
[2022-09-10 13:24] LABS: Polychromasia Present
--- NOTE | 2022-09-10 15:26 | P.CONS ---
History of Present Illness - Reason for Consult Consult date: 09/10/22 anemia Requesting physician: Anaid Obregon - Chief Complaint SOB and weakness - History of Present Illness Patient is a 72-year-old female with a significant history of iron deficiency anemia. She is a patient of Dr. Ruby. She had a colonoscopy in May/2021, found to have tubular adenoma in rectum which was removed. Patient was previously on plavix when she had cardiac stent in August/2019, but was stopped in August/2020, and continued on aspirin. She had second cardiac stent placed in late 2021 and has been on brilinta and aspirin since. She started oral iron in March/2021 and also started B12 injections, but stopped taking iron approx 6 months ago due to constipation. She last received iron infusions in 05/2021. In June of 2021 patient had EGD and colonoscopy with Dr. Stevens which were negative. She was subsequently lost to follow up Patient presented to the emergency room at the direction of her PCP after he found her hemoglobin to be 5.1 in clinic. Patient presented to her PCP for progressing weakness and shortness of breath. Upon presentation to the ER hemoglobin was found to be at 5.1 and received 2 units of PRBCs. CBC his morning revealed hemoglobin 6.9, and repeat CBC this afternoon revealed hemoglobin of 7.3, will hold additional unit of PRBCs today. Patient reports that she has been having progressing shortness of breath and generalized weakness. She denies dizziness and syncope. Denies any episodes of rectal bleeding and melena. Denies abdominal pain, nausea vomiting and diarrhea. Brilinta has been stopped due to her severe anemia. Cardiology following. Surgery consulted. Review of Systems 10 point ROS is negative except as stated in the HPI Past Medical History Past Medical History: Blood Disorder, Coronary Artery Disease (CAD), Cancer, COPD, Diabetes Mellitus, Hyperlipidemia, Hypertension Additional Past Medical History / Comment(s): Iron deficiency anemia, hx iron infusions. Lower back pain, , hx migraines, Urinary stress incontinence, Varicose veins, occ edema feet. heart murmur, skin cancer on nose and left arm History of Any Multi-Drug Resistant Organisms: None Reported Past Surgical History: Appendectomy, Bladder Surgery, Heart Catheterization With Stent, Orthopedic Surgery, Tonsillectomy Additional Past Surgical History / Comment(s): Colonoscopy, EGD [place] bladder sling. Lt shoulder rotator cuff x 2, one cardiac stent, skin cancer removed from nose and left arm, mae cataracts Past Anesthesia/Blood Transfusion Reactions: No Reported Reaction Date of Last Stent Placement:: 01/28/2022 Past Psychological History: No Psychological Hx Reported Smoking Status: Current every day smoker Past Alcohol Use History: Rare Additional Past Alcohol Use History / Comment(s): Smokes 1 PPD, since 1965 est Past Drug Use History: None Reported - Past Family History Mother Family Medical History: Blood Disorder, Cancer Additional Family Medical History / Comment(s): Kidney cancer Daughter(s) Family Medical History: Cancer Additional Family Medical History / Comment(s): Breast cancer, liver cancer Father Family Medical History: Cancer Additional Family Medical History / Comment(s): Back cancer Medications and Allergies Home Medications Medication Instructions Recorded Confirmed Type Aspirin [Adult Low Dose Aspirin EC] 81 mg PO HS 09/10/18 09/09/22 History Losartan [Cozaar] 75 mg PO DAILY 09/10/18 09/09/22 History Omeprazole [PriLOSEC] 20 mg PO BID 09/10/18 09/09/22 History glipiZIDE [Glucotrol] 10 mg PO DAILY 08/28/20 09/09/22 History Cyanocobalamin (Vitamin B-12) 1,000 mcg PO DAILY 07/29/21 09/09/22 History [Vitamin B-12] Ferrous Sulfate [Feosol] 325 mg PO DAILY 07/29/21 09/09/22 History Fluticasone/Vilanterol [Breo 1 puff INHALATION RT-DAILY PRN 07/29/21 09/09/22 History Ellipta 100-25 Mcg Inhaler] Gabapentin [Neurontin] 300 mg PO TID 07/29/21 09/09/22 History Fluticasone Nasal [place] [Flonase 1 spray EA NOSTRIL DAILY PRN 02/05/22 09/09/22 History Nasal [place]] Metoprolol Succinate [Toprol XL] 100 mg PO DAILY 02/05/22 09/09/22 History Rosuvastatin Calcium [Crestor] 40 mg PO HS 02/05/22 09/09/22 History Ticagrelor [Brilinta] 90 mg PO BID #180 tab 02/07/22 09/09/22 Rx Albuterol Sulfate [Albuterol 1 - 2 puff PO RT-Q6H PRN 09/09/22 09/09/22 History Sulfate Hfa] metFORMIN HCL 1,000 mg PO BID 09/09/22 09/09/22 History Allergies Allergy/AdvReac Type Severity Reaction Status Date / Time No Known Allergies Allergy Verified 09/09/22 12:38 Physical Exam Vitals: Vital Signs Temp Pulse Pulse Resp BP BP Pulse Ox 09/10/22 13:47 98.1 F 55 L 16 126/54 98 09/10/22 09:00 16 09/10/22 07:00 98.5 F 66 16 101/59 99 09/10/22 02:12 97.7 F 76 16 137/61 96 09/10/22 02:00 60 18 09/09/22 22:30 98.2 F 77 15 142/56 99 09/09/22 21:44 98.2 F 64 18 130/53 98 09/09/22 20:53 65 16 147/62 99 09/09/22 18:49 98.5 F 75 18 140/60 96 09/09/22 18:29 98.4 F 75 18 122/51 97 09/09/22 18:13 98.6 F 80 18 137/52 96 09/09/22 17:45 67 18 130/53 98 09/09/22 17:00 82 18 126/65 99 09/09/22 16:00 83 18 107/61 99 09/09/22 15:00 98 F 77 18 134/54 99 09/09/22 14:45 98 F 81 16 142/89 95 Intake and Output 09/09/22 09/10/22 09/10/22 22:59 06:59 14:59 Intake Total 585 Balance 585 Intake: Blood Product 585 Rc As-1 Unit 310 [id number] Rc Pheresis As-3 Unit 275 [id number] Other: Voiding Method Toilet # Voids 1 Weight 86.636 kg - Constitutional General appearance: average body habitus, no acute distress - EENT Eyes: anicteric sclerae, EOMI ENT: hearing grossly normal - Respiratory Respiratory: bilateral: CTA - Cardiovascular Rhythm: regular Heart sounds: normal: S1, S2 Abnormal Heart Sounds: no systolic murmur, no diastolic murmur, no rub, no S3 Gallop, no S4 Gallop, no click, no other leg Peripheral Edema: bilateral: None - Gastrointestinal General gastrointestinal: soft, no tenderness - Integumentary Integumentary: pale - Neurologic Neurologic: CNII-XII intact - Musculoskeletal Musculoskeletal: strength equal bilaterally - Psychiatric Psychiatric: A&O x's 3, appropriate affect, intact judgment & insight Results CBC & Chem 7: 09/10/22 12:06 09/10/22 04:33 Labs: Abnormal Lab Results - Last 24 Hours (Table) 09/09/22 09/09/22 09/09/22 Range/Units 12:32 17:03 17:30 RBC 2.99 L (3.80-5.40) m/uL Hgb 6.1 L* (11.4-16.0) gm/dL Hct 20.9 L (34.0-46.0) % MCV 69.8 L (80.0-100.0) fL MCH 20.4 L (25.0-35.0) pg MCHC 29.3 L (31.0-37.0) g/dL RDW 22.1 H (11.5-15.5) % Myelocytes # (Manual) (0) k/uL Nucleated RBCs (0-0) /100 WBC Sodium (137-145) mmol/L Carbon Dioxide (22-30) mmol/L Glucose (74-99) mg/dL POC Glucose (mg/dL) 209 H (70-110) mg/dL Crossmatch See Detail 09/10/22 09/10/22 09/10/22 Range/Units 04:33 04:33 06:08 RBC 3.26 L (3.80-5.40) m/uL Hgb 6.9 L* (11.4-16.0) gm/dL Hct 23.3 L (34.0-46.0) % MCV 71.3 L (80.0-100.0) fL MCH 21.2 L (25.0-35.0) pg MCHC 29.8 L (31.0-37.0) g/dL RDW 21.4 H (11.5-15.5) % Myelocytes # (Manual) (0) k/uL Nucleated RBCs 1 H (0-0) /100 WBC Sodium 136 L (137-145) mmol/L Carbon Dioxide 21 L (22-30) mmol/L Glucose 123 H (74-99) mg/dL POC Glucose (mg/dL) 164 H (70-110) mg/dL Crossmatch 09/10/22 09/10/22 Range/Units 12:06 12:16 RBC 3.41 L (3.80-5.40) m/uL Hgb 7.3 L (11.4-16.0) gm/dL Hct 24.7 L (34.0-46.0) % MCV 72.4 L (80.0-100.0) fL MCH 21.4 L (25.0-35.0) pg MCHC 29.6 L (31.0-37.0) g/dL RDW 21.2 H (11.5-15.5) % Myelocytes # (Manual) 0.06 H (0) k/uL Nucleated RBCs 2 H (0-0) /100 WBC Sodium (137-145) mmol/L Carbon Dioxide (22-30) mmol/L Glucose (74-99) mg/dL POC Glucose (mg/dL) 179 H (70-110) mg/dL Crossmatch Assessment and Plan (1) Iron deficiency anemia Current Visit: Yes Status: Acute Priority: High Code(s): D50.9 - IRON DEFICIENCY ANEMIA, UNSPECIFIED SNOMED Code(s): 55089707 Plan: Iron deficiency anemia: -History of iron deficiency anemia. She started oral iron in March/2021 but stopped taking PO iron approx 6 months ago due to constipation. She last received iron infusions in 05/2021 and was lost to follow up -Hemoglobin upon admission was found to be at 5.1 and received 2 units of PRBCs. CBC this morning revealed hemoglobin 6.9, and repeat CBC this afternoon revealed hemoglobin of 7.3, will hold additional unit of PRBCs today and recheck CBC in the morning. -Anemia workup ordered, will await iron studies to start parenteral iron -Brilinta held, continues on aspirin. Cardiology following -General surgery consulted for further evaluation for egd/colonoscopy -Will continue to monitor counts. Please transfuse for hemoglobin less than 7 -Will reestablish care in clinic upon discharge for monitoring and iron transfusions as needed
[2022-09-10 16:07] LABS: % Iron Saturation 3.26 (12.00-45.00); Ferritin 5.9 ng/mL (10.0-291.0)
[2022-09-10 17:22] LABS: Glucose,Whole Blood 139 mg/dL (70-110)
[2022-09-10 20:12] LABS: Glucose,Whole Blood 319 mg/dL (70-110)
[2022-09-10] MEDS: ASPIRIN 81 MG PO SCH (20:54)
[2022-09-10] MEDS: ATORVASTATIN 80 MG TAB PO SCH (20:54)
[2022-09-11 06:03] LABS: Glucose,Whole Blood 146 mg/dL (70-110)
[2022-09-11] MEDS: INSULIN ASPART (NovoLOG) 100 UNIT/ML VIAL SQ SCH ×2 (06:06→13:18)
[2022-09-11 06:42] LABS: Anisocytosis Moderate; HCT 24.2 % (34.0-46.0); HGB 7.2 gm/dL (11.4-16.0); Hypochromasia Marked; MCH 21.8 pg (25.0-35.0); MCHC 29.6 g/dL (31.0-37.0); MCV 73.7 fL (80.0-100.0); Mean Platelet Volume 8.6; Microcytosis Marked; Platelet Count 227 k/uL (150-450); Poikilocytosis Marked; RBC 3.29 m/uL (3.80-5.40); RDW 21.8 % (11.5-15.5)
[2022-09-11] MEDS: SYMBICORT 80-4.5 MCG INHALER INHALATION SCH (07:41)
[2022-09-11] MEDS: CYANOCOBALAMIN 500 MCG TAB PO SCH (08:06)
[2022-09-11] MEDS: METOPROLOL SUCCINATE (ER) 100 MG TAB.ER.24H PO SCH (08:07)
[2022-09-11] MEDS: PANTOPRAZOLE 40 MG/10 ML VIAL IVP SCH (08:07)
[2022-09-11] MEDS: GABAPENTIN 300 MG CAP PO SCH (08:07)
[2022-09-11] MEDS: LOSARTAN 25 MG TAB PO SCH (08:14)
[2022-09-11 08:47] VITALS: RESP 16; TEMP 98.3
[2022-09-11] MEDS ORDERED: SODIUM FERRIC GLUCONAT-SUCROSE 125 MG in SODIUM CHLORIDE 0.9% 100 ML IVPB SCH (09:00)
[2022-09-11 09:41] LABS: Eosinophils # (M) 0.14 k/uL (0-0.7); Neutrophils % (M) 60 %; Nucleated Red Blood Cells 1 /100 WBC (0-0); Total Cells Counted 200
[2022-09-11 09:42] LABS: Lymphocytes # (M) 2.13 k/uL (1.0-4.8); Monocytes # (M) 0.64 k/uL (0-1.0); Neutrophils # (M) 4.26 k/uL (1.3-7.7); WBC 7.1 k/uL (3.8-10.6)
--- NOTE | 2022-09-11 09:47 | P.PN ---
Subjective Progress Note Date: 09/11/22 History of present illness: This is a 72-year-old female patient of Dr. Dumont for past history of coronary artery disease with PCI of the left main 02/06/2022, previous history of stent to the RCA in 2019, history of intermediate disease bilateral carotids, valvular heart disease with mitral regurgitation and pulmonary hypertension, TR, COPD, hypertension, dyslipidemia, lower extremity arthritis, active tobacco use and dependence at one pack per day. Patient was seen at her family physician's office was found to have a hemoglobin of 5.1 and was sent into the hospital for further evaluation. Hemoglobin upon presentation was 5.1. She is status post transfusion of 2 units of packed RBCs and hemoglobin is now 6.9 this morning. Patient does have history of anemia and followed up with Dr. Ruby and underwent iron infusion 3 1-1/2 years ago. She also had upper and lower scopes done by Dr. Stevens approximately one year ago but has not had capsule endoscopy performed. Details are not available. We have been asked to evaluate the patient due to anemia and the fact that she is on dual antiplatelet therapy. Patient denies having any chest pain. She states she has some shortness of breath with walking 50-100 feet. She states she is sometimes has dizziness when she first stands up. She states that she has been having difficulty, back pain and palpitations. Regarding anemia, patient denies having any blood or black stools, no blood in her urine, no unusual bruising or other bleeding. Initial hemoglobin 5.1 currently at 6.9. WBC 5.8, platelet count 289. Sodium 136, potassium 4.3, BUN 14 creatinine 0.82. ProBNP 219. Liver function tests normal. Calcium 8.8. Blood sugar 123. Home cardiac medications: Aspirin 81 mg daily, ferrous sulfate 325 mg daily, losartan 75 mg daily, Toprol-XL 100 mg daily, Crestor 40 mg at bedtime, Brilinta 90 mg twice daily. Echocardiogram performed in the office on 08/21/2022 revealed EF 55-60%, normal LV size and function, grade 2 diastolic dysfunction, mild left ventricular hypertrophy. Trace aortic regurgitation. Ascending aorta enlarged. Mild to moderate MR. Moderate TR, PAS P 48 mmHg. Mild pulmonic regurgitation 09/11 Patient has been seen by general surgery and hematology. She has been started on IV iron infusions. She states she is feeling very well today much improved since she came into the hospital. She denies having any chest pain, no shortness of breath, no lightheadedness or dizziness. Repeat hemoglobin is 7.2. Physical examination: Gen: This is a 72-year-old female. She is resting in bed and appears to be comfortable and in no acute distress. VS: reviewed HEENT: Head is atraumatic, normocephalic. Pupils equal, round. Sclerae is anicteric. NECK: Supple. No JVD. . LUNGS: Clear to auscultation. No wheezes or rhonchi. No intercostal retractions. HEART: Regular rate and rhythm. Systolic murmur. ABDOMEN: Soft No tenderness. EXTREMITIES: No pedal edema. No calf tenderness. NEUROLOGICAL: Patient is awake, alert and oriented x3. Assessment: Significant anemia of unclear etiology Rule out GI bleed, Dr. Stevens on consult as well as hematology Coronary artery disease with PCI most recently 01/2022 Valvular heart disease with mitral regurgitation, TR and pulmonary hypertension COPD Hypertension Active tobacco use and dependence Plan: Discontinue Brilinta At the time of discharge, continue patient on aspirin 81 mg daily only. No need to repeat echocardiogram as this was done in the office in July Cardiology we'll sign off and follow on an as-needed basis. Please reconsult for any new concerns.. Nurse practitioner note has been reviewed, I agree with documented findings and plan of care. Patient was seen and examined. Objective - Vital Signs Vital signs: Vital Signs Temp 98.3 F 09/11/22 07:20 Pulse 50 L 09/11/22 07:20 Resp 16 09/11/22 07:20 BP 115/58 09/11/22 07:20 Pulse Ox 97 09/11/22 07:20 FiO2 Intake & Output 09/10/22 09/11/22 09/11/22 18:59 06:59 18:59 Intake Total 120 360 Balance 120 360 Intake: Oral 120 360 Other: Voiding Method Toilet Toilet # Voids 2 - Labs CBC & Chem 7: 09/11/22 05:37 09/10/22 04:33 Labs: Abnormal Lab Results - Last 24 Hours (Table) 09/09/22 09/10/22 09/10/22 Range/Units 12:32 04:33 12:06 RBC 3.41 L (3.80-5.40) m/uL Hgb 7.3 L (11.4-16.0) gm/dL Hct 24.7 L (34.0-46.0) % MCV 72.4 L (80.0-100.0) fL MCH 21.4 L (25.0-35.0) pg MCHC 29.6 L (31.0-37.0) g/dL RDW 21.2 H (11.5-15.5) % Myelocytes # (Manual) 0.06 H (0) k/uL Nucleated RBCs 1 H 2 H (0-0) /100 WBC POC Glucose (mg/dL) (70-110) mg/dL Iron (50-170) UG/DL TIBC (228-460) UG/DL % Saturation (12.00-45.00) Transferrin (204.0-354.0) mg/dL Ferritin (10.0-291.0) ng/mL Vitamin B12 (200.0-944.0) pg/mL Crossmatch See Detail 09/10/22 09/10/22 09/10/22 Range/Units 12:06 12:16 17:20 RBC (3.80-5.40) m/uL Hgb (11.4-16.0) gm/dL Hct (34.0-46.0) % MCV (80.0-100.0) fL MCH (25.0-35.0) pg MCHC (31.0-37.0) g/dL RDW (11.5-15.5) % Myelocytes # (Manual) (0) k/uL Nucleated RBCs (0-0) /100 WBC POC Glucose (mg/dL) 179 H 139 H (70-110) mg/dL Iron 21 L (50-170) UG/DL TIBC 644 H (228-460) UG/DL % Saturation 3.26 L (12.00-45.00) Transferrin 460.0 H (204.0-354.0) mg/dL Ferritin 5.9 L (10.0-291.0) ng/mL Vitamin B12 996.0 H (200.0-944.0) pg/mL Crossmatch 09/10/22 09/11/22 09/11/22 Range/Units 20:11 05:37 06:02 RBC 3.29 L (3.80-5.40) m/uL Hgb 7.2 L (11.4-16.0) gm/dL Hct 24.2 L (34.0-46.0) % MCV 73.7 L (80.0-100.0) fL MCH 21.8 L (25.0-35.0) pg MCHC 29.6 L (31.0-37.0) g/dL RDW 21.8 H (11.5-15.5) % Myelocytes # (Manual) (0) k/uL Nucleated RBCs (0-0) /100 WBC POC Glucose (mg/dL) 319 H 146 H (70-110) mg/dL Iron (50-170) UG/DL TIBC (228-460) UG/DL % Saturation (12.00-45.00) Transferrin (204.0-354.0) mg/dL Ferritin (10.0-291.0) ng/mL Vitamin B12 (200.0-944.0) pg/mL Crossmatch
--- NOTE | 2022-09-11 11:25 | P.PN ---
Subjective Progress Note Date: 09/11/22 CHIEF COMPLAINT: Anemia HISTORY OF PRESENT ILLNESS: Patient reports no bowel movements. She denies any abdominal pain. Denies any nausea or vomiting. Hemoglobin today stable at 7.2. Patient has received a total of 2 units of blood during this admission. Afebrile. WBC 7.1 Hgb 7.2 platelets 227 iron low at 21 PHYSICAL EXAM: VITAL SIGNS: Reviewed. GENERAL: Well-developed in no acute distress. HEENT: No sclera icterus. Extraocular movements grossly intact. Moist buccal mucosa. Head is atraumatic, normocephalic. ABDOMEN: Soft. Nondistended. Nontender. NEUROLOGIC: Alert and oriented. Cranial nerves II through XII grossly intact. ASSESSMENT: 1. Microcytic anemia 2. Acute on chronic iron deficiency anemia PLAN: -Further recommendations forthcoming per Dr. Stevens -Agree with IV iron transfusions -Continue to monitor hemoglobin -Awaiting stool to be collected for occult blood -Continue PPI Physician Provisioning Analyst note has been reviewed by physician. Signing provider agrees with the documented findings, assessment, and plan of care. I have personally seen and examined the patient, reviewed the [facility] /PAs history, exam and MDM and agree with the assessment and plan as written. Based on total visit time, I have performed more than 50% of the visit. As above: Patient doing well today. Tolerating diet. She has not had a bowel movement. Hemoglobin stable. Looked back at our old endoscopy report from last June. Gastritis and diverticulosis was seen. No plans for repeat endoscopy at this time. Recommend outpatient follow-up with Dr. Ding to discuss further anemia workup. Objective - Vital Signs Vital signs: Vital Signs Temp 98.3 F 09/11/22 07:20 Pulse 50 L 09/11/22 07:20 Resp 16 09/11/22 08:06 BP 115/58 09/11/22 07:20 Pulse Ox 97 09/11/22 07:20 FiO2 Intake & Output 09/10/22 09/11/22 09/11/22 18:59 06:59 18:59 Intake Total 120 360 Balance 120 360 Intake: Oral 120 360 Other: Voiding Method Toilet Toilet Toilet # Voids 2 - Labs CBC & Chem 7: 09/11/22 05:37 09/10/22 04:33 Labs: Abnormal Lab Results - Last 24 Hours (Table) 09/09/22 09/10/22 09/10/22 Range/Units 12:32 04:33 12:06 RBC 3.41 L (3.80-5.40) m/uL Hgb 7.3 L (11.4-16.0) gm/dL Hct 24.7 L (34.0-46.0) % MCV 72.4 L (80.0-100.0) fL MCH 21.4 L (25.0-35.0) pg MCHC 29.6 L (31.0-37.0) g/dL RDW 21.2 H (11.5-15.5) % Myelocytes # (Manual) 0.06 H (0) k/uL Nucleated RBCs 1 H 2 H (0-0) /100 WBC POC Glucose (mg/dL) (70-110) mg/dL Iron (50-170) UG/DL TIBC (228-460) UG/DL % Saturation (12.00-45.00) Transferrin (204.0-354.0) mg/dL Ferritin (10.0-291.0) ng/mL Vitamin B12 (200.0-944.0) pg/mL Crossmatch See Detail 09/10/22 09/10/22 09/10/22 Range/Units 12:06 12:16 17:20 RBC (3.80-5.40) m/uL Hgb (11.4-16.0) gm/dL Hct (34.0-46.0) % MCV (80.0-100.0) fL MCH (25.0-35.0) pg MCHC (31.0-37.0) g/dL RDW (11.5-15.5) % Myelocytes # (Manual) (0) k/uL Nucleated RBCs (0-0) /100 WBC POC Glucose (mg/dL) 179 H 139 H (70-110) mg/dL Iron 21 L (50-170) UG/DL TIBC 644 H (228-460) UG/DL % Saturation 3.26 L (12.00-45.00) Transferrin 460.0 H (204.0-354.0) mg/dL Ferritin 5.9 L (10.0-291.0) ng/mL Vitamin B12 996.0 H (200.0-944.0) pg/mL Crossmatch 09/10/22 09/11/22 09/11/22 Range/Units 20:11 05:37 06:02 RBC 3.29 L (3.80-5.40) m/uL Hgb 7.2 L (11.4-16.0) gm/dL Hct 24.2 L (34.0-46.0) % MCV 73.7 L (80.0-100.0) fL MCH 21.8 L (25.0-35.0) pg MCHC 29.6 L (31.0-37.0) g/dL RDW 21.8 H (11.5-15.5) % Myelocytes # (Manual) (0) k/uL Nucleated RBCs 1 H (0-0) /100 WBC POC Glucose (mg/dL) 319 H 146 H (70-110) mg/dL Iron (50-170) UG/DL TIBC (228-460) UG/DL % Saturation (12.00-45.00) Transferrin (204.0-354.0) mg/dL Ferritin (10.0-291.0) ng/mL Vitamin B12 (200.0-944.0) pg/mL Crossmatch
[2022-09-11 12:37] LABS: Glucose,Whole Blood 157 mg/dL (70-110)
--- NOTE | 2022-09-11 14:17 | P.DS ---
Providers Date of admission: 09/10/22 08:06 Attending physician: Sulema Baxter MD Consults: 09/09/22 15:59 Consult Physician Routine Consulting Provider: Nathan Stevens Consult Reason/Comments: iron deficiency anemia Do you want consulting provider notified?: Yes 09/09/22 16:01 Consult Physician Routine Consulting Provider: Corbin Howard Consult Reason/Comments: Anemia and on DAPT Do you want consulting provider notified?: Yes 09/09/22 16:02 Consult Physician Routine Consulting Provider: Wesley Woo Consult Reason/Comments: Anemia Do you want consulting provider notified?: Yes Primary care physician: Denis Garza MD Hospital Course: Discharge Diagnosis: Acute blood loss anemia Iron deficiency anemia Diabetes mellitus Hypertension Hyperlipidemia GERD Asthma Hospital Course: Patient is a 72-year-old female with a past medical history of coronary artery disease and last stent in January 2022, diabetes mellitus, hypertension, hyperlipidemia, GERD, iron deficiency anemia, asthma who was sent to the ED by her PCP for hemoglobin 5.1. In our records patient's last hemoglobin on 02/07/2022 was 12.7. Patient states that she has never received blood transfusion in the past. Patient states that she did receive iron infusion several years ago. Patient admits that she stopped taking her iron supplements 6 months ago because it made her constipated. She denies any melanotic stool. She denies any overt signs of bleeding. She states that she had a colonoscopy and EGD done by less than one year ago and was told that it was unremarkable. Patient states that she had a heart cath in January 2022 and had 2 stents placed. She is on aspirin and Brilenta and is compliant with her medications. In the ED patient's hemoglobin was 5.1. 2 units of PRBC were ordered. Patient was then referred for admission. The following day the patient's hemoglobin was 6.9. She was transfused another unit of PRBC. Patient was seen by hematology. Hematology started the patient on IV Ferrlicit. Patient also seen by cardiology who said okay to stop Brilinta. Unfortunately the lab had canceled her stool occult. Patient was seen by her surgeon who did her EGD and colonoscopy 1 year ago. This surgeon reviewed her records and said the endoscopy procedures showed some gastritis and diverticulosis. Surgery recommended no endoscopy procedures at this time and to follow up outpatient with hematology for further anemia workup. At time of discharge patient's hemoglobin was stable. She never had any overt signs of bleeding. Patient looking forward to going home. Patient is requesting to be discharged. She states that she'll make a appointment with hematology tomorrow so that she can get her IV Iron infusion and she'll also request for a CBC check. Patient seen and examined at bedside.[] Vital signs reviewed and stable. General: [non toxic], [no distress], [appears at stated age] Derm: [warm], [dry] Head: [atraumatic], [normocephalic], [symmetric] Eyes: [EOMI], [no lid lag], [anicteric sclera] Mouth: [no lip lesion], [mucus membranes moist] Cardiovascular: [S1S2 reg], [no murmur], [positive posterior tibial pulse bilateral], Lungs: [CTA bilateral], [no rhonchi, no rales] , [no accessory muscle use] Abdominal: [soft], [ nontender to palpation], [no guarding], [no appreciable organomegaly] Ext: [no gross muscle atrophy], [no edema], [no contractures] Neuro: [ CN II-XI grossly intact], [no focal neuro deficits] Psych: [Alert], [oriented], [appropriate affect] A total of [33] minutes of time were spent preparing this complex discharge summary . Patient Condition at Discharge: Stable Plan - Discharge Summary Discharge Rx Participant: No New Discharge Prescriptions: Continue Omeprazole [PriLOSEC] 20 mg PO BID Losartan [Cozaar] 75 mg PO DAILY Aspirin [Adult Low Dose Aspirin EC] 81 mg PO HS Cyanocobalamin (Vitamin B-12) [Vitamin B-12] 1,000 mcg PO DAILY Rosuvastatin Calcium [Crestor] 40 mg PO HS Metoprolol Succinate [Toprol XL] 100 mg PO DAILY Albuterol Sulfate [Albuterol Sulfate Hfa] 1 - 2 puff PO RT-Q6H PRN PRN Reason: Shortness Of Breath glipiZIDE [Glucotrol] 10 mg PO DAILY Fluticasone/Vilanterol [Breo Ellipta 100-25 Mcg Inhaler] 1 puff INHALATION RT-DAILY PRN PRN Reason: Shortness Of Breath Gabapentin [Neurontin] 300 mg PO TID Fluticasone Nasal [place] [Flonase Nasal [place]] 1 spray EA NOSTRIL DAILY PRN PRN Reason: Sinus Symptoms metFORMIN HCL 1,000 mg PO BID Discontinued Ferrous Sulfate [Feosol] 325 mg PO DAILY Ticagrelor [Brilinta] 90 mg PO BID #180 tab Discharge Medication List Aspirin [Adult Low Dose Aspirin EC] 81 mg PO HS 09/10/18 [History] Losartan [Cozaar] 75 mg PO DAILY 09/10/18 [History] Omeprazole [PriLOSEC] 20 mg PO BID 09/10/18 [History] glipiZIDE [Glucotrol] 10 mg PO DAILY 08/28/20 [History] Cyanocobalamin (Vitamin B-12) [Vitamin B-12] 1,000 mcg PO DAILY 07/29/21 [History] Fluticasone/Vilanterol [Breo Ellipta 100-25 Mcg Inhaler] 1 puff INHALATION RT- DAILY PRN 07/29/21 [History] Gabapentin [Neurontin] 300 mg PO TID 07/29/21 [History] Fluticasone Nasal [place] [Flonase Nasal [place]] 1 spray EA NOSTRIL DAILY PRN 02/05/22 [History] Metoprolol Succinate [Toprol XL] 100 mg PO DAILY 02/05/22 [History] Rosuvastatin Calcium [Crestor] 40 mg PO HS 02/05/22 [History] Albuterol Sulfate [Albuterol Sulfate Hfa] 1 - 2 puff PO RT-Q6H PRN 09/09/22 [History] metFORMIN HCL 1,000 mg PO BID 09/09/22 [History] Follow up Appointment(s)/Referral(s): Nathan Stevens MD [Medical Doctor] - As Needed (NO NEED FOR FOLLOW UP (PER DR STEVENS), OTHER THAN COLONOSCOPY IN 4 YRS, SOONER IF DEEMED NECESSARY BY PRIMARY CARE) Corbin Howard MD [STAFF PHYSICIAN] - 1 Week Denis Garza MD [Primary Care Provider] - 1-2 days Wesley Woo MD [STAFF PHYSICIAN] - 1 Week Discharge Disposition: HOME SELF-CARE
[2022-09-11 15:54] VITALS: BP 102/60; PULSE 54
--- NOTE | 2022-09-11 16:02 | P.PN ---
Subjective Progress Note Date: 09/11/22 Principal diagnosis: anemia At today's visit patient is resting comfortably in bed. She reports feeling well. Denies shortness of breath and dizziness. Denies any episodes of b leeding. She reports leg cramping last night but states that this has been an ongoing issue. No other reported complaints at this time Objective - Vital Signs Vital signs: Vital Signs Temp 98.3 F 09/11/22 07:20 Pulse 50 L 09/11/22 07:20 Resp 16 09/11/22 08:06 BP 115/58 09/11/22 07:20 Pulse Ox 97 09/11/22 07:20 FiO2 Intake & Output 09/10/22 09/11/22 09/11/22 18:59 06:59 18:59 Intake Total 120 480 Balance 120 480 Intake: Oral 120 480 Other: Voiding Method Toilet Toilet Toilet # Voids 2 - Constitutional General appearance: Present: average body habitus, no acute distress - EENT Eyes: Present: anicteric sclerae, EOMI ENT: Present: hearing grossly normal - Respiratory Details: breathing is even and unlabored - Cardiovascular Details: skin warm and dry - Integumentary Integumentary: Present: pale - Neurologic Neurologic: Present: CNII-XII intact - Musculoskeletal Musculoskeletal: Present: strength equal bilaterally - Psychiatric Psychiatric: Present: A&O x's 3, appropriate affect, intact judgment & insight - Labs CBC & Chem 7: 09/11/22 05:37 09/10/22 04:33 Labs: Abnormal Lab Results - Last 24 Hours (Table) 09/10/22 09/10/22 09/10/22 Range/Units 12:06 17:20 20:11 RBC (3.80-5.40) m/uL Hgb (11.4-16.0) gm/dL Hct (34.0-46.0) % MCV (80.0-100.0) fL MCH (25.0-35.0) pg MCHC (31.0-37.0) g/dL RDW (11.5-15.5) % Nucleated RBCs (0-0) /100 WBC POC Glucose (mg/dL) 139 H 319 H (70-110) mg/dL Iron 21 L (50-170) UG/DL TIBC 644 H (228-460) UG/DL % Saturation 3.26 L (12.00-45.00) Transferrin 460.0 H (204.0-354.0) mg/dL Ferritin 5.9 L (10.0-291.0) ng/mL Vitamin B12 996.0 H (200.0-944.0) pg/mL 09/11/22 09/11/22 09/11/22 Range/Units 05:37 06:02 12:36 RBC 3.29 L (3.80-5.40) m/uL Hgb 7.2 L (11.4-16.0) gm/dL Hct 24.2 L (34.0-46.0) % MCV 73.7 L (80.0-100.0) fL MCH 21.8 L (25.0-35.0) pg MCHC 29.6 L (31.0-37.0) g/dL RDW 21.8 H (11.5-15.5) % Nucleated RBCs 1 H (0-0) /100 WBC POC Glucose (mg/dL) 146 H 157 H (70-110) mg/dL Iron (50-170) UG/DL TIBC (228-460) UG/DL % Saturation (12.00-45.00) Transferrin (204.0-354.0) mg/dL Ferritin (10.0-291.0) ng/mL Vitamin B12 (200.0-944.0) pg/mL Assessment and Plan (1) Iron deficiency anemia Current Visit: Yes Status: Acute Priority: High Code(s): D50.9 - IRON DEFICIENCY ANEMIA, UNSPECIFIED SNOMED Code(s): 12891190 Plan: Iron deficiency anemia: -History of iron deficiency anemia. She started oral iron in March/2021 but stopped taking PO iron approx 6 months ago due to constipation. She last received iron infusions in 05/2021 and was lost to follow up -Hemoglobin upon admission was found to be at 5.1 and received 2 units of PRBCs with appropriate response in hemoglobin. Hgb 7.2 today. Denies any episodes of bleeding. -Anemia workup consistent with TENZIN. Parenteral iron started. Vitamin B12 and folate normal -Brilinta held, continues on aspirin. Cardiology following -General surgery consulted and have no plan for EGD at this time, recommend f/u with hematology. -Will continue to monitor counts. Please transfuse for hemoglobin less than 7 -Discussed with internal medicine, patient will have CBC rechecked in the morning in our clinic. We will schedule patient for 2 doses of Feraheme with follow-up with Dr. Ruby s/p infusions. -Pt updated on POC and is agreeable
[2022-09-12 07:47] LABS: Methylmalonic Acid 0.18 umol/L (<0.40)
== END 2022-09-11 15:39 | disposition home or self-care (01) | DRG 812 ==
LOC: EC 10:16 → 6NMEDSUR 13:07 → OBSVTOIN 09-10 08:06
PROVIDERS: ADMIT Internal Medicine; ATTEND Internal Medicine
PROC: 30233N1 Transfusion of Nonautologous Red Blood Cells into Peripheral Vein, Percutaneous Approach (ICD-10-PCS; principal; 2022-09-09)
DX: D50.9 Iron deficiency anemia, unspecified (principal); I27.20 Pulmonary hypertension, unspecified; I11.9 Hypertensive heart disease without heart failure; E11.9 Type 2 diabetes mellitus without complications; J44.9 Chronic obstructive pulmonary disease, unspecified; Z79.4 Long term (current) use of insulin; I08.1 Rheumatic disorders of both mitral and tricuspid valves; D62 Acute posthemorrhagic anemia; E78.5 Hyperlipidemia, unspecified; K21.9 Gastro-esophageal reflux disease without esophagitis; I25.10 Atherosclerotic heart disease of native coronary artery without angina pectoris; T45.4X6A Underdosing of iron and its compounds, initial encounter; Z91.128 Patient's intentional underdosing of medication regimen for other reason; N39.3 Stress incontinence (female) (male); M54.50 Low back pain, unspecified; I83.90 Asymptomatic varicose veins of unspecified lower extremity; M19.90 Unspecified osteoarthritis, unspecified site; F17.210 Nicotine dependence, cigarettes, uncomplicated; K57.90 Diverticulosis of intestine, part unspecified, without perforation or abscess without bleeding; K29.70 Gastritis, unspecified, without bleeding; Z79.82 Long term (current) use of aspirin; Z79.84 Long term (current) use of oral hypoglycemic drugs; Z79.02 Long term (current) use of antithrombotics/antiplatelets; Z79.51 Long term (current) use of inhaled steroids; Z79.899 Other long term (current) drug therapy; Z95.5 Presence of coronary angioplasty implant and graft; Z85.828 Personal history of other malignant neoplasm of skin; Z86.018 Personal history of other benign neoplasm
CPT/HCPCS: 36415; 36430; 80048; 80053; 82525; 82607; 82728; 82746; 83540; 83550; 83880; 83921; 85025; 86850; 86900; 86901; 86920; 94640; 99291

== ENCOUNTER → 2022-09-18 | Outpatient (CLI) | payer MEDICARE, OTHER ==
--- NOTE | 2022-09-18 11:18 | XR ---
EXAMINATION TYPE: XR chest 2V DATE OF EXAM: 09/18/2022 COMPARISON: NONE TECHNIQUE: PA and lateral views submitted. HISTORY: Shortness of breath FINDINGS: The lungs are clear and there is no pneumothorax, pleural effusion, or focal pneumonia. Heart size a mildly prominent and no overt failure. Osseous structures demonstrate hypertrophic and degenerative changes of the spine. AC joint arthropathy. Biapical pleural thickening. Coronary artery calcificati on or stent is incidentally noted IMPRESSION: 1. No acute process.
== END | disposition home or self-care (01) ==
LOC: RADXRMAIN 10:59
PROVIDERS: ATTEND Internal Medicine
DX: J44.9 Chronic obstructive pulmonary disease, unspecified (principal)
CPT/HCPCS: 71046

== ENCOUNTER → 2022-11-19 | Outpatient (CLI) | payer MEDICARE, OTHER ==
--- NOTE | 2022-11-19 13:03 | CT ---
EXAMINATION TYPE: CT thor lumbar spine wo con DATE OF EXAM: 11/19/2022 COMPARISON: None HISTORY: pre op spinal sx CT DLP: 1597.[address] of the lumbar and thoracic spine was performed. Bone and soft tissue window settings a re submitted as well as coronal and sagittal reconstructions. Thoracic spine: There is curvature seen convex to the left. Moderate multilevel degenerative disc spa ce narrowing and spondylosis seen scattered throughout the thoracic spine. There is no evidence for o bvious disc herniation or central stenosis. There is ventral spondylosis seen. No compression fractur e, bony lesion or malalignment present. Lumbar spine: L1-L2: Severe degenerative disc space narrowing with posterior disc bulge and partially capsulated an d spur resulting in disc endplate complex. Mild effacement ventral thecal sac. No evidence for centra l stenosis or foraminal encroachment. L2-L3: Severe degenerative disc space narrowing and vacuum disc. Endplate sclerosis noted. Disc endpl ate complex effaces the ventral thecal sac and results in mild central stenosis. There is bilateral n eural foraminal encroachment. L3-L4: Severe disc desiccation with vacuum disc. Posterior hard disc noted. Effacement of the ventral thecal sac and mild central stenosis. Mild bilateral foraminal encroachment. L4-L5: Vacuum disc noted with a moderate posterior broad-based disc bulge. Mild central stenosis. Shaheen ateral foraminal encroachment. L5-S1: Vacuum disc noted with a moderate posterior broad-based disc bulge. Mild central stenosis. Shaheen ateral foraminal encroachment. No paraspinal masses are identified. Lumbar segments are free if fracture. Curvature convex to the r ight. IMPRESSION: 1. Multilevel lumbar central stenosis as outlined above. 2. Multilevel degenerative disc disease of the thoracic spine without evidence for herniation or cent ral stenosis.
== END | disposition home or self-care (01) ==
LOC: RADCTMAIN 12:00
PROVIDERS: ATTEND Orthopaedic Surgery
DX: M47.817 Spondylosis without myelopathy or radiculopathy, lumbosacral region (principal); M51.37 Other intervertebral disc degeneration, lumbosacral region; M48.062 Spinal stenosis, lumbar region with neurogenic claudication; M51.34 Other intervertebral disc degeneration, thoracic region
CPT/HCPCS: 72128; 72131

== ENCOUNTER → 2022-12-03 | Outpatient (CLI) | payer MEDICARE, OTHER ==
--- NOTE | 2022-12-03 13:23 | CTL ---
EXAMINATION TYPE: CT Low Dose Lung DATE OF EXAM ORDERED: 12/03/2022 HISTORY: Z12.2 ENCNTR SCREEN FOR MALIGNANT NEOPLASM F17.210. Current smoker, 50 pack year history. Marija ng cancer screening CT DLP: 84.[address] CTDI: 2.1 mGy Automated exposure control for dose reduction was used. SCREENING VISIT: Follow-up COMPARISON: 11/22/2021 TECHNIQUE: Low dose computed tomography scan was performed through the chest at 1 mm thick sections a nd reconstructed images in multiple planes at 1 mm and [address] DIAGNOSTIC QUALITY: Satisfactory FINDINGS: LUNG NODULES: 2 mm left upper lobe calcified granuloma. No clinically significant pulmonary nodules. LUNGS: COPD: Severity: None Fibrosis: Severity: None Lymph nodes: None Other findings: None RIGHT PLEURAL SPACE: Effusion: None Calcification: None Thickening: Apical pleural-parenchymal scarring. Pneumothorax: None LEFT PLEURAL SPACE: Effusion: None Calcification: None Thickening: Apical pleural-parenchymal scarring. Pneumothorax: None HEART: Heart Size: Normal Coronary Calcification: Moderate Pericardial Effusion: None OTHER FINDINGS: Upper abdomen: None Bony thorax: Multilevel degenerative changes of visualized spine. No acute osseous abnormality. Supraclavicular region: None Other: Dilation of the main pulmonary artery measuring up to 4.6 cm. Ectasia of the ascending thoraci c aorta measuring up to 3.8 cm. IMPRESSION: 1. No clinically significant pulmonary nodules. 2. Dilation of main pulmonary artery which can be seen in the setting of pulmonary arterial hyperten lucy. CT LUNG RAD AND CT CHEST RECOMMENDATION: Lung-Rad 1 Negative: Continue annual screening with LDCT in 12 months. S Modifier (other clinically significant findings): None
== END | disposition home or self-care (01) ==
LOC: RADCTMAIN 12:12
PROVIDERS: ATTEND Internal Medicine
DX: Z12.2 Encounter for screening for malignant neoplasm of respiratory organs (principal); F17.210 Nicotine dependence, cigarettes, uncomplicated; I27.20 Pulmonary hypertension, unspecified
CPT/HCPCS: 71271

== ENCOUNTER → 2023-01-21 | Outpatient (CLI) | payer MEDICARE, OTHER | END | disposition home or self-care (01) | LOC: LABPAT 10:45 | PROVIDERS: ATTEND Orthopaedic Surgery | DX: Z01.812 Encounter for preprocedural laboratory examination (principal); Z22.322 Carrier or suspected carrier of Methicillin resistant Staphylococcus aureus; M47.817 Spondylosis without myelopathy or radiculopathy, lumbosacral region; M48.061 Spinal stenosis, lumbar region without neurogenic claudication | CPT/HCPCS: 36415; 86850; 86900; 86901; 87070 ==

== ENCOUNTER 2023-01-27 05:34 | Inpatient (IN) | payer MEDICARE, OTHER ==
[2023-01-23 13:39] VITALS: BMI 29.6
--- NOTE | 2023-01-26 10:35 | P.HPOR ---
History of Present Illness H&P Date: 01/21/23 Chief Complaint: Low back pain, Leg pain .D:Date: 01/21/23 : 01:29pm .T:Title: [facility] History and Physical Date of :[birth year] Age: 71 year Height: 5'7" Weight: 210 lbs BP:132/87 BMI: 32.89 kg/m2 Occupation: Retired VAS: 8 CHIEF COMPLAINT: Re-check on low back pain DOI:Chronic DOS: None Duration of current treatment regiment:> 5 years HISTORY : Xrays No new xrays taken in office Trauma or injury No Work-Related No Pain description Aching, burning, sharp. Location Diffuse Patient notes that their pain radiates to bilateral lower extremities Activity Modification Yes Hand Dominance Right TREATMENTS COMPLETED: 6 weeks of PT completed? Month and Year of last PT date? 2021 Yes How many sessions? 12 Did it help? No Physician recommended home exercise completed? Duration of HEP course: Current Yes, Patient has trialed the physician directed home exercise program without relief of their symptoms. Medications Yes List: Neurontin Alternative interventions Chiropractic: No Massage therapy: No R.I.C.E: yes , heat/ice without relief Brace: No Injections Yes, several through Dr. Marin 4-5 years ago How many? several TRACIE's Did they help? No RFA: No SUBJECTIVE: Ms. Vizcarra returns to the office for a pre-operative evaluation for her T10- Pelvis decompression and fusion. Regarding treatments, the patient has previously trialed all above mentioned treatment modalities without relief of her symptoms. Patient denies trialing any other modalities at this time. Otherwise the patient denies any f/c/sob/cp, no incision concerns, no bladder or bowel retention/incontinence, no perineal numbness/tingling, and ambulates independently with difficulty and has been having more difficulty as of late. She has required the use of a walker for assistance or a cane due to her imbalance and wekaness in her legs. She also has sigificant increase in her back pain as of late that hs prevented her from doing the things she wants to do. She denies any bowel or bladder issues at this time. No perineal numbness/tingling. HISTORY: Ms. Vizcarra returned to the office for re-evaluation on 11/19/2022 of her low back pain. The patient reports experiencing a worsening ache-like, burning pain throughout the low back that radiates down into the bilateral lower extremities. She notes that her lower extremity pain is associated with numbness, tingling, and weakness. The patient states her symptoms are exacerbated by all activity, which makes it very difficult for her to complete any of her activities of daily living. The patient reports experiencing moderate to severe sleep disturbances related to her ongoing pain and associated symptoms. She states her symptoms have started to become intractable. Regarding treatments, the patient has previously trialed all above mentioned treatment modalities without relief of her symptoms. Patient denies trialing any other modalities at this time. Otherwise the patient denies any f/c/sob/cp, no incision concerns, no bladder or bowel retention/incontinence, no perineal numbness/tingling, and ambulates independently. Ms. Vizcarra returns to the office on 01/02/2022 for a recheck of their low back pain. Since the time of the last appointment the patient reports increasing lumbar pain ongoing for 5+ years with no known injury or trauma to indicate an exact onset of their symptoms. In addition to their lumbar pain, they do report that it radiates into the bilateral lower extremities, associated with numbness and tingling through both feet diffusely. Overall the patient has seen a progressive increase in symptoms since their onset. Ms. Vizcarra symptoms are exacerbated with prolonged standing and ambulation, due to this they notes that it is increasingly difficult for Ms. Vizcarra to complete many of their daily tasks. Patient is having severe sleep disturbances as well due to their ongoing pain and associated symptoms. Regarding treatments, the patient has previously trialed all above mentioned treatment modalities without relief of her symptoms. Patient denies trialing any other modalities at this time. Otherwise the patient denies any f/c/sob/cp, no incision concerns, no bladder or bowel retention/incontinence, no perineal numbness/tingling, and ambulates independently. Ms. Vizcarra was last seen on 12/09/2021 regarding the lumbar pain and MRI result. patient continues to report a dull ache and burning lumbar pain, they do report that it radiates into the bilateral lower extremities, associated with numbness and tingling with right greater than the left. patient states she was unable to perform physical therapy that was prescribed at last visit due to it exacerbating her symptoms. Overall patient states she has no changes since previous visit. MRI results of the lumbar spine were reviewed and discussed. Patient continues to take cyclobenzaprine and gabapentin with mild relief. Otherwise she denies any f/c/sob/cp, no incision concerns, no bladder or bowel retention/incontinence, no perineal numbness/tingling, and ambulates independently. Ms. Vizcarra was previously seen on 11/13/21 regarding an evaluation of their Lumbar pain. Patient reports a dull ache with burning lumbar pain ongoing for 5 years with symptoms increasing over the past 3 years with no known injury or trauma to indicate an exact onset of their symptoms. In addition to their lumbar pain, they do report that it radiates into the bilateral lower extremities, associated with numbness and tingling with right greater than the left. Overall the patient has seen a progressive increase in symptoms since their onset. Ms. Vizcarra symptoms are exacerbated with standing from a seated position and bending, lifting, and twisting, due to this they notes that it is increasingly difficult for Ms. Vizcarra to complete many of their daily tasks. Patient is having mild sleep disturbances as well due to their ongoing pain and associated symptoms. Regarding treatments, the patient has previously trialed the above listed modalities. Patient denies trialing any other modalities at this time. For their symptoms, the patient has been taking Gabapentin. Otherwise the patient denies any f/c/sob/cp, no incision concerns, no bladder or bowel retention/incontinence, no perineal numbness/tingling, and ambulates independently. The patients' past social, medical, family, surgical history, as well as review of systems, have been reviewed. Please refer to the Neurosurgery History and Physical form that has been scanned in to our electronic medical record system. 16 points review of systems completed and as stated in HPI, all other systems reviewed are negative. Social History: Reviewed, see appropriate section of the chart for details. P3 Social History: Smoking: current smoker P3 Smoking Amount: 1 PPD Alcohol: none P3 Family History: Reviewed, see appropriate section of the chart for details. P2 Past Medical History: Reviewed, see appropriate section of the chart for details. P1 Current Medications: Rx: aspirin 81 mg tablet,delayed release Ref: 0 Rx: diclofenac sodium 50 mg tablet,delayed release Ref: 0 Rx: fluticasone propionate 50 mcg/actuation nasal spray,suspension Ref: 0 Rx: furosemide 20 mg tablet Ref: 0 Rx: glipiZIDE ER 10 mg tablet, extended release 24 hr Ref: 0 Rx: imipramine 50 mg tablet Ref: 0 Rx: Lasix 20 mg tablet Ref: 0 Rx: losartan 50 mg tablet Ref: 0 Rx: metFORMIN 500 mg tablet Ref: 0 Rx: metoprolol tartrate 25 mg tablet Ref: 0 Rx: omeprazole 20 mg tablet,delayed release Ref: 0 Rx: rosuvastatin 20 mg tablet Ref: 0 Rx: vitamin d3 2000IU , Ref: 0 Rx: cyclobenzaprine 5 mg tablet Ref: 0 Rx: gabapentin 300 mg capsule Ref: 0 PHYSICAL EXAMINATION: General: Awake, alert, appropriate for age, in no acute distress. HEENT: No unusual neck masses around region of lateral neck triangle, thyroid, supraclavicular groove Heart: Regular rate and rhythm, normal S1, S2 and no murmur/gallop. Lungs: Clear to auscultation bilaterally with no use of accessory muscles. Extremities: Skin warm and dry without acute lesions, coloration, temperature, skin intact, no tenderness or erythema Integument: Hairy patches: ABSENT Dorsal skin dimples: ABSENT Cafe au lait spots: ABSENT Surgical incisions: NONE Palpation: Please see Pain drawing on Intake sheet for further detail. Midline spinal tenderness: No E6 Cervical Tenderness: No E6 Paralumbar tenderness: YES E6 Parathoracic tenderness: YES E6 Buttocks tenderness: YES E6 Sacroilliac Tenderness: YES POSTURAL and MUSCULO-SKELETAL EVALUATION: Coronal Balance: NEUTRAL Recumbent testing: Patient isnot able to lay flat on back Sagittal Balance: POSITIVE Shoulder Profile: LEVEL Pelvic Girdle: LEVEL Neck ROM: UNRESTRICTED Lumbar ROM: RESTRICTED Shoulder ROM: Symmetrical Hip ROM: Symmetrical Knee ROM: Symmetrical Hands: Normal appearance, symmetrical Feet: Normal appearance, Symmetrical VASCULAR STATUS : LEFT RIGHT Wrist Pulses INTACT INTACT Pedal Pulses (Dors. pedis & post.tibialis) INTACT INTACT Color NORMAL NORMAL Edema Absent Absent NEUROLOGIC EXAMINATION: Mental Status:Awake and alert, fully oriented, with normal attention, concentration and memory, and fluent, appropriate speech. Cranial Nerves: I: Olfactory not tested. II: Visual acuity normal, no visual field deficit noted with confrontation. III,IV: Normal pupillary reflexes & intact extraocular movements without nystagmus. V,: Intact symmetrical facial sensation. VII: Intact symmetrical facial motor movement VIII: Hearing intact. IX,X: Intact gag, swallow, & normal voice. XI: Sternocleidomastoid, trapezius function intact. XII: Tongue midline with normal movements. L'hermitte's Sign: Negative / absent Spurling'Sign: Absent bilaterally. Cubital percussion test: Absent bilaterally. Rasmussen-Tinel sign - Carpal region: Absent bilaterally. Straight Leg Raising: Absent bilaterally. Crossed straight leg raise: negative O8 MOTOR EXAM (0-5/5, N/T) UPPER EXTREMITY Shoulder Abduction Biceps Triceps Wrist Extension Hand Intrinsics Log Preparer Right 5/5 5/5 5/5 5/5 5/5 5/5 Left 5/5 5/5 5/5 5/5 5/5 5/5 LOWER EXTREMITY Hip Flexion Knee Extension Knee Flexion DF PF EHL FHL Right 4+ 4 4 4 4 4 + Left 4 4 4 4 4 4 4 REFLEXES(0-4/2, NT)Upper ExtremityLower Extremity Right 2 1 Left 2 2 Pathological Reflexes RIGHT LEFT Rasmussen's Absent Absent Clonus Absent Absent Babinski Absent Absent # Indicates mechanical impairment Muscle appearance: Symmetrical, without signs of atrophy or dystrophy. Sensory system (0-4, N/T) Test type RU DEWEY RL LL Joint-Position 2 2 2 2 Vibration 2 2 2 2 Pain & LT sense 2 2 2 2 Dermatomal Deficit: None None global global Gait and Functional Evaluation: Ambulatory aids: Independent Romberg's test: Intact bilaterally Toe heel walk / heel-toe walk intact while maintaining satisfactory balance? No Squatting/straightening w/o assistance to a min of 60 degree knee flexion? No Single leg stance: intact Trendelenburg sign negative bilaterally Hand and finger dexterity intact bilaterally? yes Disdiadochokinesis examination negative bilaterally? yes RADIOGRAPHIC STUDIES: No new x-rays taken in office today. Please see previous notes. MRI scan completed at [facility] from12/04/2021 of LumbarSpine: - Images were re-reviewed with the patient today. These images demonstrate severe stenosis L2 through S1 due to severe spondylosis and degenerative lumbar scoliosis. There is disc height loss disc collapsed disc degeneration which is noted throughout these levels. There is facet arthrosis as well as hypertrophy with ligamentum hypertrophy which contributes to the central as well as foraminal stenosis at these levels. This is moderate to severe throughout the whole L2 through S1 region. There is differential collapse causing a dextroscoliosis to this. No acute fracture or dislocations noted. Again there is very degrees of retrolisthesis as well as anterior listhesis throughout the lumbar spine. IMPRESSION: It was my pleasure to have seen and examined Halie. I reviewed the patient's clinical syndrome, physical findings, and imaging studies during the appointment today. It is my impression that the patient has a diagnosis of. 1. L1-S1 spondylosis and stenosis, severe 2. Lower extremity weakness, bilateral 3. Lower extremity radiculopathy, bilateral 4. Thoracolumbar kyphotic deformity I outlined the natural course history without intervention and various interventional options. PLAN: Based on my findings I suggest the following course of action: -I discussed treatment options with the patient, including operative and non- operative options, and they have elected to proceed with the following surgical procedure: [id number] decompression and fusion The indications, risks, benefits, and alternatives to surgery were discussed wi th the patient and family at length. Specifically (but not limited to) the risks of infection, stiffness, recurrence of symptoms, need for revision surgery, local numbness, neurovascular injury, and blood clots were discussed. The patient's questions were answered. The decision to proceed was made. Consent will be obtained for the procedure. - I have ordered CT scans of the thoracic and lumbar spine, both without contrast, to be completed for preoperative planning. -Advised patient to continue with supplements, health maintenance, and home e xercise programs. Patient expressed understanding and will continue with these modalities. - Ambulate daily. - Take medications as directed. - Ice and rest for pain and swelling control. Spine Surgery Risk Review Ms. Vizcarra is presenting for evaluation of low back and bilateral lower extremity pain, bilateral lower extremity numbness, tingling, and weakness. It was my pleasure to have seen and examined Ms. Vizcarra. In our visit today we have had a chance to go over subjective complaints, phy sical examination findings and treatments including the natural course history without intervention and various interventional options. The patients imaging demonstrates: XRay taken on 01/02/22 of Lumbar Spine: - Images are re-reviewed with the patient today. These demonstrate severe spondylosis L2 through S1 with disc height loss as well as sclerosis. There is facet arthrosis which is noted throughout as well. There is a degenerative scoliosis which is centered around the L2-L3 region which is a dextroscoliosis with approximately 25. This is due to lateral collapse and differential collapse throughout. The fractional curve is well- developed L5-S1. There is no acute fracture noted at this time. There is very degrees of anterior listhesis as well as retrolisthesis throughout due to the overall unstable nature. lumbar lordosis is flattened secondary to these findings with Blount around 20 of lumbar lordosis pelvic incidence around 68 AP pelvis demonstrates congruent level pelvis without fracture MRI scan completed at [facility] from12/04/2021 of LumbarSpine: - Images are re-reviewed with the patient today. These images demonstrate severe stenosis L2 through S1 due to severe spondylosis and degenerative lumbar scoliosis. There is disc height loss disc collapsed disc degeneration which is noted throughout these levels. There is facet arthrosis as well as hypertrophy with ligamentum hypertrophy which contributes to the central as well as foraminal stenosis at these levels. This is moderate to severe throughout the whole L2 through S1 region. There is differential collapse causing a dextroscoliosis to this. No acute fracture or dislocations noted. Again there is very degrees of retrolisthesis as well as anterior listhesis throughout the lumbar spine. On physical exam, Ms. Vizcarra demonstrates: a worsening ache-like, burning pain throughout the low back that radiates down into the bilateral lower extremities. She notes that her lower extremity pain is associated with numbness, tingling, and weakness. The patient states her symptoms are exacerbated by all activity, which makes it very difficult for her to complete any of her activities of daily living. The patient reports experiencing moderate to severe sleep disturbances related to her ongoin pain and associated symptoms. She states her symptoms have started to become intractable. I have explained to the patient that as their condition progresses it will cause further neurological deficits and eventual paralysis. Based on the patients imaging, physical exam, and the rapid progression and disabling nature of their symptoms, at this time I recommend surgery in the form of a: [id number] decompression and fusion. I discussed the risk and benefits of this procedure at length with Ms. Vizcarra. The patient agreed to considered pursuing the procedure abovementioned. Prior to surgery, she should follow up with her PCP (Cardio, ID, IM etc) for clearance. Questions were invited and answered, and the patient wishes to proceed as outlined below. Currently, I am recommendin.[id number] decompression and fusion 2.Follow up with PCP for surgical clearance 3.Review of surgical risks and benefits as well as an educational packet on the proposed surgical procedure. Risks: All surgical procedures come with inherent risks, including those related to positioning, anesthesia, intraoperative findings, and postoperative complications. It is important to understand that surgery does not come with any guarantee of a successful outcome as complications and adverse events are always possible. The patient was given a handout in office today discussing the surgical procedure and risks associated with the intervention, both of which were discussed with the patient. These risks include but are not limited to the following: * Experiencing same, different or even worse symptoms in back, neck, arms, or legs compared to before surgery. Requiring further surgery or other forms of treatment presently or at some time in the future at same or other levels of the intended spine surgery. On an extreme but fortunately relatively rare basis severe complication such as blindness, stroke, heart attack, temporary and/or permanent nerve injury, paralysis, coma, or may occur, sometimes without known explanation. Surgical complications may include but are not limited to risk of infection, fluid accumulation in the surgical dissection site, including a seroma or hematoma, that requires additional surgery, wound drainage, bleeding, new numbness or weakness, vision changes/loss, spinal fluid leakage, non-healing and/or infected incision, headaches, difficulty or inability to swallow, hoarseness, hemopneumothorax, pneumothorax, impotence, retrograde ejaculation, vaginal dryness; injury to nerves, spinal cord, blood vessels, lymphatics or other vital organs (i.e., bowel injury, injury to the great vessels); heterotopic bone formation; complications related to the hardware such as screws, rods, cages including misplaced hardware, device failure, instrumentatio n at the wrong spine level, hardware fracture/breakage, or hardware loosening; vertebral failure of the spinal column above or below the newly placed hardware; retained surgical instrumentations or devices and the need for further surgery. * Medical risks of the planned spine surgery include but are not limited to generalized Infections to the whole body or local areas outside of the surgi ludy site (sepsis), heart attack, bleeding, anaphylaxis, meningitis, seizure, epilepsy, hearing loss, burn cruz, laceration of the head or other areas of the body, bruising, hypersensitivity of the skin, bladder over distension; allergic reaction; shoulder injury related to positioning; fat, blood and air clots to other areas of the body like heart, lungs, brain; failure of internal organs such as lungs, kidneys, liver and excessive bleeding. If blood transfusions are necessary, note that transfusions may cause intolerance reactions such as anaphylaxis or other complex reactions. Despite best efforts, the results of spine surgery might not heal in terms of bone, soft tissues such as skin, fascia, ligaments, and joints. Additionally, in order to achieve best possible results, spine surgery may be carried out beyond the initially planned levels and involve decompression, fusion including insertion of hardware at levels other than the original intended area of surgical interest change some portions of the procedure in order to ensure the best possible outcomes. With spine surgery and spinal fusion, there are different off label uses of instrumentation (devices, implants and hardware) as well as biological substances (bone morphogenic proteins, demineralized bone matrix) as well as using extra bone from allograft sources (i.e. cadaver bone) or autograft (iliac crest bone, ribs, or the spine itself). The patient has been given information about these practices and their inherent risks and benefits. [facility] is an educational center that serves as a training facility for neurosurgical and orthopedic MANUFA[employer]ING [employer] and Nursing students. Physician assistants are medically trained surgical providers who function in the outpatient, inpatient, and operating room setting under the direct supervision of the attending surgeon. [facility] has multiple operating rooms with single and overlapping rooms running daily. They currently function under the required guidelines as produced by the [facility] Finance Committee with regards to the overlapping rooms and will continue to comply with changes to this policy as they occur. The requirements include and are complied with as follows: (1) the critical portions of the overlapping rooms will not occur at the same time, (2) the attending physician will be physically present during the critical portions of the proced ure and immediately available during the entire case, and (3) a back-up attending is designated should the primary attending not be immediately available. The patient has had a chance to review all the listed information, has been given print outs detailing this information, and has had all his/her questions answered to their satisfaction. It was my pleasure to have seen and examined Ms. Vizcarra. In our visit today we have had a chance to go over my understanding of our patient's current condition, the natural course history without intervention and various interventional options. Questions were invited and answered, and the patient wishes to proceed as outlined above. I have seen and examined the patient for 25 minutes and we have spent more than 50% of the time in repeat and detailed cou nseling about the patient's condition, its natural course history with out and as much as can be predicted with surgery and re-review of various surgical treatment options. In conclusion, Ms. Vizcarra requested we proceed with the above suggested surgery and are willing to accept risks and limitations of the suggested surgery as nature of the disease process and our best attempts at treatment for the condition. Thank you again for allowing us to be part of your patient's care. Please don't hesitate to contact me if you have any further questions. Follow-u p: DEL F/U... 1month 6wks 3 months 6 months 1 year POST OP Patient Education: (Informational booklet, instructions, etc) given at today's appointment: ARNALDO Yes .ED:Patient Education: Y Plan at next visit: ARNALDO xip xop X-ray oop Medications Reviewed: YES In our visit today Ms. Vizcarra and I have had a chance to go over my understanding of the patient's current condition, the natural course history without intervention and various interventional options. Questions were invited and answered, and the patient wishes to proceed as outlined above. I will be sure to keep you updated afterMs. Vizcarra returns here for further follow-up. Thank you again for your referral. Please do not hesitate to contact me if you have any further questions. Signed and authenticated by: Olvin Banegas [facility] Complex and Minimally Invasive Spine Surgery [address] [place] [address], [address] [address] This message is confidential, intended only for the named recipient(s) and may contain information that is privileged or exempt from disclosure under applicable law. If you are not the intended recipient(s), you are notified that the dissemination, distribution or copying of this information is strictly prohibited. If you received this message in error, please notify the sender then delete this message. SCRIBE SIGN CC: DEL REFDR... Past Medical History Past Medical History: Blood Disorder, Coronary Artery Disease (CAD), Cancer, COPD, Diabetes Mellitus, Hyperlipidemia, Hypertension Additional Past Medical History / Comment(s): Iron deficiency anemia, hx iron infusions. Lower back pain, Varicose veins, occ edema feet, heart murmur, skin cancer on nose and left arm History of Any Multi-Drug Resistant Organisms: None Reported Past Surgical History: Appendectomy, Bladder Surgery, Heart Catheterization With Stent, Orthopedic Surgery, Tonsillectomy Additional Past Surgical History / Comment(s): Colonoscopy, EGD [place] bladder sling. Lt shoulder rotator cuff x 2, one cardiac stent, skin cancer removed from nose and left arm, mae cataracts Past Anesthesia/Blood Transfusion Reactions: No Reported Reaction Date of Last Stent Placement:: 01/28/2022 Past Psychological History: No Psychological Hx Reported Smoking Status: Current every day smoker Past Alcohol Use History: Rare Additional Past Alcohol Use History / Comment(s): Smokes 1 PPD, since 1965 est Past Drug Use History: None Reported - Past Family History Mother Family Medical History: Blood Disorder, Cancer Additional Family Medical History / Comment(s): Kidney cancer Daughter(s) Family Medical History: Cancer Additional Family Medical History / Comment(s): Breast cancer, liver cancer Father Family Medical History: Cancer Additional Family Medical History / Comment(s): Back cancer Medications and Allergies Home Medications Medication Instructions Recorded Confirmed Type Aspirin [Adult Low Dose Aspirin EC] 81 mg PO HS 09/10/18 01/23/23 History Losartan [Cozaar] 75 mg PO DAILY 09/10/18 01/23/23 History Omeprazole [PriLOSEC] 20 mg PO BID 09/10/18 01/23/23 History glipiZIDE [Glucotrol] 10 mg PO DAILY 08/28/20 01/23/23 History Cyanocobalamin (Vitamin B-12) 1,000 mcg PO DAILY 07/29/21 01/23/23 History [Vitamin B-12] Fluticasone/Vilanterol [Breo 1 puff INHALATION RT-DAILY PRN 07/29/21 01/23/23 History Ellipta 100-25 Mcg Inhaler] Gabapentin [Neurontin] 300 mg PO TID 07/29/21 01/23/23 History Fluticasone Nasal [place] [Flonase 1 spray EA NOSTRIL DAILY PRN 02/05/22 01/23/23 History Nasal [place]] Metoprolol Succinate [Toprol XL] 100 mg PO DAILY 02/05/22 01/23/23 History Rosuvastatin Calcium [Crestor] 40 mg PO HS 02/05/22 01/23/23 History Albuterol Sulfate [Albuterol 1 - 2 puff PO RT-Q6H PRN 09/09/22 01/23/23 History Sulfate Hfa] metFORMIN HCL 1,000 mg PO BID 09/09/22 01/23/23 History Ferrous Sulfate [Feosol] 325 mg PO DAILY 01/23/23 01/23/23 History Allergies Allergy/AdvReac Type Severity Reaction Status Date / Time No Known Allergies Allergy Verified 09/09/22 12:38 Physical Examination Osteopathic Statement: *. No significant issues noted on an osteopathic structural exam other than those noted in the History and Physical/Consult.
[~2023-01-27 05:34] MED LIST changes: +ACETAMINOPHEN TAB 500 MG TAB PO PRN; -ALPRAZolam 0.25 MG TAB PO PRN; -ALPRAZolam 0.5 MG TAB PO PRN; -ASPIRIN 325 MG TAB PO ONE; +GABAPENTIN 300 MG CAP PO PRN; -NITROGLYCERIN SL TABS 0.4 MG TAB SUBLINGUAL PRN; +ONDANSETRON 4 MG/2 ML VIAL IVP PRN; -SODIUM CHLORIDE 0.9% 1,000 ML in EMPTY BAG 1 BAG IV SCH; +TRANEXAMIC 1,000 MG/100ML-NACL 1,000 MG in SALINE 1 100ML.BAG IVPB PRN
[2023-01-27] MEDS ORDERED: ONDANSETRON 4 MG/2 ML VIAL IVP ONE (06:11)
[2023-01-27] MEDS ORDERED: DEXAMETHASONE SOD PHOSPHATE 4 MG/ML 1 ML VIAL IV ONE (06:11)
[2023-01-27] MEDS ORDERED: MIDAZOLAM 2 MG/2 ML VIAL IV PRN (06:11)
[2023-01-27] MEDS ORDERED: LIDOCAINE 1% (10MG/ML) FOR IV START INTRADERMA PRN (06:11)
[2023-01-27] MEDS ORDERED: MIDAZOLAM 2 MG/2 ML VIAL IVP ONE (07:00)
[2023-01-27 07:14] LABS: Glucose,Whole Blood 131 mg/dL (70-110)
[2023-01-27] MEDS ORDERED: MIDAZOLAM 2 MG/2 ML VIAL ONE (07:30)
[2023-01-27] MEDS ORDERED: WATER FOR INJECTION, STERILE 10 ML VIAL IV ONE (07:30)
[2023-01-27] MEDS ORDERED: ONDANSETRON 4 MG/2 ML VIAL ONE (07:30)
[2023-01-27] MEDS ORDERED: SUCCINYLCHOLINE CHLORIDE 200 MG/10 ML VIAL IV ONE (07:30)
[2023-01-27] MEDS ORDERED: ROCURONIUM 10 MG/ML (5 ML VIAL) IV ONE (07:30)
[2023-01-27] MEDS ORDERED: PHENYLEPHRINE 10 MG/ML VIAL ONE (07:30)
[2023-01-27] MEDS ORDERED: fentaNYL (PF) 50 MCG/ML 2 ML AMP ONE (07:30)
[2023-01-27] MEDS ORDERED: LIDOCAINE 1% INJ 10MG/ML (20 ML MDV) ONE (07:30)
[2023-01-27] MEDS ORDERED: NEOSTIGMINE 1 MG/ML 10 ML VIAL ONE (07:30)
[2023-01-27] MEDS ORDERED: ALBUMIN HUMAN 5% (12.5gm) 250 ML BOTTLE IVPB ONE (07:30)
[2023-01-27] MEDS ORDERED: GLYCOPYRROLATE 0.2 MG/ML 2 ML VIAL ONE (07:30)
[2023-01-27] MEDS ORDERED: PHENYLEPHRINE-0.9% NACL SYG 1,000 MCG/10 ML SYRINGE ONE (07:30)
[2023-01-27] MEDS ORDERED: ACETAMINOPHEN IV (For NPO) 1,000 MG/100 ML VIAL ONE (07:30)
[2023-01-27] MEDS ORDERED: KETAMINE HCL IN 0.9 % NACL 50 MG/5 ML SYRINGE ONE (07:30)
[2023-01-27] MEDS ORDERED: ePHEDrine 50 MG/ML 1 ML VIAL ONE (07:30)
[2023-01-27] MEDS ORDERED: INSULIN REGULAR 100 UNIT/ML VIAL (IV) ONE (07:30)
[2023-01-27] MEDS ORDERED: PROPOFOL 10 MG/ML 20 ML VIAL IV ONE (07:30)
[2023-01-27] MEDS ORDERED: TRANEXAMIC 1,000 MG/100ML-NACL PREMIX BAG ONE ×2 (07:30)
[2023-01-27] MEDS: LACTATED RINGERS 1,000 ML IV SCH ×2 (07:41→21:27)
[2023-01-27] MEDS ORDERED: IV FLUID CONTINUATION 1,000 ML IV ONE ×2 (07:41)
[2023-01-27] MEDS ORDERED: THROMBIN (BOVINE) 5,000 UNIT VIAL TOPICAL ONE (08:30)
[2023-01-27] MEDS ORDERED: GELATIN SPONGE,ABSORB (LARGE) 1 EACH SPONGE TOPICAL ONE (08:30)
[2023-01-27] MEDS ORDERED: SODIUM CHLORIDE 0.9% 1,000 ML IV ONE (08:42)
[2023-01-27] MEDS ORDERED: LACTATED RINGERS 1,000 ML IV ONE ×2 (09:14→13:06)
--- NOTE | 2023-01-27 09:27 | P.ANPRN ---
Procedure Note - Anesthesia - Invasive Line Right Central Line Time Out Performed: Yes Date of Procedure: 01/27/23 Time of Procedure: 06:49 Location of Patient: PreOp Central Line Location: Internal Jugular Ultrasound Used: Yes Purpose - Visualization and Identification of Vasculature: Yes Image Stored and Saved: Yes Narrative: Central line placement per sterile protocol utilized.
[2023-01-27 11:02] LABS: Glucose,Whole Blood 199 mg/dL (70-110)
[2023-01-27] MEDS ORDERED: ceFAZolin 3,000 MG in SODIUM CHLORIDE 0.9% IRRIGATIO 3,000 ML IRRIGATION ONE (11:06)
[2023-01-27] MEDS ORDERED: GENTAMICIN 80 MG in SODIUM CHLORIDE 0.9% IRRIGATIO 3,000 ML IRRIGATION ONE (11:06)
[2023-01-27] MEDS ORDERED: VANCOMYCIN 1,000 MG VIAL MISCELLANE ONE (12:18)
[2023-01-27] MEDS ORDERED: TOBRAMYCIN SULFATE 1.2 GM VIAL MISCELLANE ONE (12:18)
--- NOTE | 2023-01-27 13:14 | XR ---
EXAM TYPE: LUMBAR SPINE X RAY SERIES COMPARISON: NONE HISTORY: Spinal fusion TECHNIQUE: 7 views are submitted. FINDINGS: Multiple intraoperative images demonstrate surgical changes involving the visualized vertebral canal. IMPRESSION: 1. Intraoperative images
[2023-01-27] MEDS ORDERED: NA PHOS,M-B/NA PHOS,DI-BA 133 ML ENEMA RECTAL PRN (13:50)
[2023-01-27] MEDS ORDERED: bisacodyL 10 MG SUPP RECTAL PRN (13:50)
[2023-01-27] MEDS ORDERED: ONDANSETRON 4 MG/2 ML VIAL IVP PRN (13:50)
[2023-01-27] MEDS ORDERED: HYDROmorphone 0.5 MG/0.5 ML SYRINGE IVP PRN (13:50)
[2023-01-27] MEDS ORDERED: HYDROcodone/APAP 7.5-325MG 1 EACH TAB PO PRN (13:54)
[2023-01-27] MEDS: HYDROmorphone 0.5 MG/0.5 ML SYRINGE IVP PRN ×4 (14:00→15:29)
[2023-01-27 14:10] LABS: Glucose,Whole Blood 212 mg/dL (70-110)
--- NOTE | 2023-01-27 15:03 | XR ---
EXAMINATION TYPE: XR chest 1V portable DATE OF EXAM: 01/27/2023 COMPARISON: 09/18/2022 HISTORY: Line placement TECHNIQUE: Single frontal view of the chest is obtained. FINDINGS: Bilateral lower lobe atelectasis or infiltrate with tiny right effusion. No overt failure. No pneumothorax. Right-sided central line with the tip overlying the right atrium. Surgical chema with postsurgical changes overlying the vertebral column. Arthropathy of the shoulders. IMPRESSION: 1. Right-sided central line tip overlying right atrium. No pneumothorax. 2. Bilateral lower lobe atelectasis favored over pneumonia correlate clinically.
--- NOTE | 2023-01-27 15:44 | FL ---
EXAMINATION TYPE: FL guidance operating room DATE OF EXAM: 01/27/2023 HISTORY: Fluoroscopy time Total dose area product (DAP) in uGy*m?, mGy*cm? (or similar): 102,469 IMPRESSION: 1. Fluoroscopy time.
[2023-01-27 16:10] LABS: Glucose,Whole Blood 237 mg/dL (70-110)
[2023-01-27 16:55] LABS: Basophils % (A) 0 %; Eosinophils % (A) 0 %; HCT 34.1 % (34.0-46.0); HGB 11.2 gm/dL (11.4-16.0); Lymphocytes # (A) 1.1 k/uL (1.0-4.8); Lymphocytes % (A) 8 %; MCH 32.2 pg (25.0-35.0); MCHC 32.9 g/dL (31.0-37.0); MCV 97.9 fL (80.0-100.0); Mean Platelet Volume 7.3; Monocytes # (A) 0.7 k/uL (0-1.0); Monocytes % (A) 5 %; Neutrophils # (A) 10.8 k/uL (1.3-7.7); Neutrophils % (A) 85 %; Platelet Count 238 k/uL (150-450); RBC 3.48 m/uL (3.80-5.40); RDW 13.8 % (11.5-15.5); WBC 12.7 k/uL (3.8-10.6)
[2023-01-27] MEDS ORDERED: FLUTICASONE 50MCG/SPRAY NASAL 16GM EA NOSTRIL PRN (16:56)
[2023-01-27] MEDS ORDERED: ALBUTEROL NEBULIZED 2.5 MG/3 ML INHALATION PRN (16:56)
[2023-01-27] MEDS ORDERED: SYMBICORT 80-4.5 MCG INHALER INHALATION PRN (16:56)
--- NOTE | 2023-01-27 16:59 | P.CONS ---
History of Present Illness - Reason for Consult Consult date: 01/27/23 - Chief Complaint Medical management - History of Present Illness 72-year-old woman with medical history of CAD status post stent in January 2022, hypertension, hyperlipidemia, diabetes, iron deficiency anemia, asthma, GERD presented for elective pelvis to T10 decompression and fusion. Medicine was consulted for medical management. Patient is placed in the ICU following her procedure as a consequence of 1200 mL of blood loss noted with 125 Cell Saver replacement intraoperatively. Her only complaint is pain but she does appear groggy and limitedly participates in interview. Postoperatively, patient is noted to be afebrile, 142/84, heart rate 65, 98% on 2 L nasal cannula. She has a central line in the right internal jugular, recently removed arterial line. Only available lab work is blood glucose which ranges from 131-237. Her most recent hemoglobin is noted to be 14 on 12/30. Postoperative lumbar x-ray shows intraoperative surgical changes. Chest x-ray shows right-sided central line in good place, bilateral lower lobe atelectasis. Gen: awake, alert HEENT: normocephalic, atraumatic, good hearing acuity, moist mucous membranes Resp: good air exchange, breathing comfortably with no accessory muscle use, clear to auscultation bilaterally CVS: good distal perfusion x 4, regular rate and rhythm without murmurs GI: soft, NTTP, ND : no SPT, no CVAT, june catheter is present MSK: Trace pitting edema, no clubbing Neuro: non-focal, moving all extremities Psych: cooperative, euthymic mood Assessment/plan: Acute blood loss anemia, expected outcome of surgery Iron deficiency anemia -CBC ordered -A.m. CBC ordered, BMP, magnesium ordered -Resume oral iron Hypertension -Resume patient's metoprolol 100 mg daily -Resume patient's losartan 75 mg daily -We will add when necessary blood pressure medication if this does not resolve her hypertension Diabetes type 2 with hyperglycemia -Holding patient's home glipizide, metformin -Add low-dose sliding scale insulin and glucose monitoring Hyperlipidemia Asthma without exacerbation CAD GERD without esophagitis -Holding patient's aspirin until cleared by orthopedic surgery -Remainder medications reconciled Patient is full code Past Medical History Past Medical History: Blood Disorder, Coronary Artery Disease (CAD), Cancer, COPD, Diabetes Mellitus, Hyperlipidemia, Hypertension Additional Past Medical History / Comment(s): Iron deficiency anemia, hx iron infusions. Lower back pain, Varicose veins, occ edema feet, heart murmur, skin cancer on nose and left arm History of Any Multi-Drug Resistant Organisms: None Reported Past Surgical History: Appendectomy, Bladder Surgery, Heart Catheterization With Stent, Orthopedic Surgery, Tonsillectomy Additional Past Surgical History / Comment(s): Colonoscopy, EGD [place] bladder sling. Lt shoulder rotator cuff x 2, one cardiac stent, skin cancer removed from nose and left arm, mae cataracts Past Anesthesia/Blood Transfusion Reactions: No Reported Reaction Date of Last Stent Placement:: 01/28/2022 Past Psychological History: No Psychological Hx Reported Smoking Status: Current every day smoker Past Alcohol Use History: Rare Additional Past Alcohol Use History / Comment(s): Smokes 1 PPD, since 1965 est Past Drug Use History: None Reported - Past Family History Mother Family Medical History: Blood Disorder, Cancer Additional Family Medical History / Comment(s): Kidney cancer Daughter(s) Family Medical History: Cancer Additional Family Medical History / Comment(s): Breast cancer, liver cancer Father Family Medical History: Cancer Additional Family Medical History / Comment(s): Back cancer Medications and Allergies Home Medications Medication Instructions Recorded Confirmed Type Aspirin [Adult Low Dose Aspirin EC] 81 mg PO HS 09/10/18 01/27/23 History Losartan [Cozaar] 75 mg PO DAILY 09/10/18 01/27/23 History Omeprazole [PriLOSEC] 20 mg PO BID 09/10/18 01/27/23 History glipiZIDE [Glucotrol] 10 mg PO DAILY 08/28/20 01/27/23 History Cyanocobalamin (Vitamin B-12) 1,000 mcg PO DAILY 07/29/21 01/27/23 History [Vitamin B-12] Fluticasone/Vilanterol [Breo 1 puff INHALATION RT-DAILY PRN 07/29/21 01/27/23 History Ellipta 100-25 Mcg Inhaler] Gabapentin [Neurontin] 300 mg PO TID 07/29/21 01/27/23 History Fluticasone Nasal [place] [Flonase 1 spray EA NOSTRIL DAILY PRN 02/05/22 01/27/23 History Nasal [place]] Metoprolol Succinate [Toprol XL] 100 mg PO DAILY 02/05/22 01/27/23 History Rosuvastatin Calcium [Crestor] 40 mg PO HS 02/05/22 01/27/23 History Albuterol Sulfate [Albuterol 1 - 2 puff PO RT-Q6H PRN 09/09/22 01/27/23 History Sulfate Hfa] metFORMIN HCL 1,000 mg PO BID 09/09/22 01/27/23 History Ferrous Sulfate [Feosol] 325 mg PO DAILY 01/23/23 01/27/23 History Allergies Allergy/AdvReac Type Severity Reaction Status Date / Time No Known Allergies Allergy Verified 01/27/23 06:20 Physical Exam Osteopathic Statement: *. No significant issues noted on an osteopathic stru ctural exam other than those noted in the History and Physical/Consult. Vitals: Vital Signs Temp Pulse Pulse Resp BP BP Pulse Ox 01/27/23 15:22 65 16 142/84 98 01/27/23 15:07 67 16 149/65 96 01/27/23 14:52 62 16 154/59 96 01/27/23 14:37 63 16 145/67 96 01/27/23 14:22 62 16 149/62 94 L 01/27/23 14:07 65 16 151/60 94 L 01/27/23 13:52 71 16 151/70 97 01/27/23 13:37 96.8 F L 67 18 167/70 98 01/27/23 07:27 98.5 F 52 L 16 171/90 97 Intake and Output 01/27/23 01/27/23 01/27/23 06:59 14:59 22:59 Intake Total 4552 300 Output Total 1775 150 Balance 2777 150 Intake: IV 4552 300 Output: Urine 575 150 Estimated Blood Loss 1200 Other: Weight 86.6 kg Results Labs: Abnormal Lab Results - Last 24 Hours (Table) 01/27/23 01/27/23 01/27/23 Range/Units 07:04 11:00 14:08 POC Glucose (mg/dL) 131 H 199 H 212 H (70-110) mg/dL 01/27/23 Range/Units 16:08 POC Glucose (mg/dL) 237 H (70-110) mg/dL
[2023-01-27] MEDS: INSULIN ASPART (NovoLOG) 100 UNIT/ML VIAL SQ SCH (17:09)
[2023-01-27] MEDS: SENNOSIDES-DOCUSATE SODIUM 1 EACH TAB PO SCH (17:10)
[2023-01-27] MEDS: ACETAMINOPHEN TAB 325 MG TAB PO SCH (17:11)
[2023-01-27 17:25] LABS: African American GFR (CKD) >90 (>60 ml/min/1.73 sqM); Anion Gap 11 mmol/L; Blood Urea Nitrogen 14 mg/dL (7-17); Calcium 8.4 mg/dL (8.4-10.2); Carbon Dioxide 20 mmol/L (22-30); Chloride 104 mmol/L (98-107); Glucose 224 mg/dL (74-99); Magnesium 1.5 mg/dL (1.6-2.3); Non-African American GFR(CKD) 90 (>60 ml/min/1.73 sqM); Potassium 4.4 mmol/L (3.5-5.1); Sodium 135 mmol/L (137-145)
[2023-01-27] MEDS: HYDROcodone/APAP 10-325MG 1 EACH TAB PO PRN (17:54)
[2023-01-27] MEDS: HYDROmorphone 1 MG/ML 1 ML SYRINGE IVP PRN ×2 (19:10→22:22)
[2023-01-27 21:18] LABS: Glucose,Whole Blood 192 mg/dL (70-110)
[2023-01-27] MEDS: GABAPENTIN 300 MG CAP PO SCH (21:28)
[2023-01-27] MEDS: ATORVASTATIN 80 MG TAB PO SCH (21:28)
[2023-01-27] MEDS ORDERED: GABAPENTIN 300 MG CAP PO SCH (22:00)
[2023-01-28] MEDS: ACETAMINOPHEN TAB 325 MG TAB PO SCH ×4 (00:02→17:06)
[2023-01-28] MEDS ORDERED: Magnesium Replacement Protocol 1 EACH MISC MISCELLANE PRN (00:15)
[2023-01-28] MEDS ORDERED: Potassium Replacement Protocol 1 EACH MISC MISCELLANE PRN (00:15)
--- NOTE | 2023-01-28 00:16 | CT ---
EXAM: CT Lumbar Spine Without Intravenous Contrast CLINICAL HISTORY: ITS.REASON CT Reason: s/p [id number] decompression and fusion TECHNIQUE: Axial computed tomography images of the lumbar spine without intravenous contrast. CTDI is 35.4 mGy and DLP is 1700.4 mGy-cm. This CT exam was performed using one or more of the following dose reduction techniques: automated exposure control, adjustment of the mA and/or kV according to patient size, and/or use of iterative reconstruction technique. COMPARISON: No relevant prior studies available. FINDINGS: Vertebrae: T10 through biiliac instrumented fusion. Hardware is intact. No acute fracture. Canal is decompressed from L1-2 through L5- S1. Dorsal surgical drain in place. Artifact limits evaluation of the soft tissues and canal. No significant foraminal stenosis. No significant spondylolisthesis. Soft tissues: Unremarkable. Intraperitoneal space: Nonspecific free fluid within the pelvis. No abscess. Bladder: Blount catheter within the bladder. IMPRESSION: Postsurgical changes. No acute fracture or surgical complication identified.
--- NOTE | 2023-01-28 00:35 | P.CNPUL ---
History of Present Illness Consult date: 01/28/23 Requesting physician: Olvin Garcia Reason for consult: other (ICU management) Chief complaint: Lumbar back pain History of present illness: I am seeing this patient in consultation today 01/28/2023 in the intensive care unit status/post an elective T10 to pelvis decompression and fusion that was completed yesterday. Patient is a 72-year-old white female with past medical history significant for chronic lumbar back pain, coronary artery disease with previous stent to the left main and RCA, diabetes mellitus, hyperlipidemia, hypertension, iron deficiency anemia, COPD, among other things. Patient states that she's been experiencing chronic lumbar back pain over the last several years. 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 For the past 3 years, however, symptoms have progressively become worse. She's been experiencing radiculopathy like symptoms down bilateral legs. Denies urine or fecal incontinence. A CT of the thoracic and lumbar spine without contrast done back in October of this year showed multilevel lumbar central stenosis and multilevel degenerative disc disease of the thoracic spine without evidence of herniation or central stenosis. Patient was brought in for an elective T10 to pelvis decompression and fusion yesterday. No immediate perioperative complications reported. Patient was extubated successfully in recovery. Patient is currently sitting up in the chair, on 2 L/m nasal cannula, in no acute distress. Chest x-ray shows bilateral lower lobe atelectasis. She is getting ready to go down for her follow up postoperative lumbar CT. Neurovascular status of the lower extremities appears intact. There is some post-surgical incisional pain reported. Incisional dressing appears clean, dry, and intact. Postoperative CBC shows a WBC count of 12.7, hemoglobin 11.2, hematocrit 34.1, platelet 238. BMP postoperatively shows sodium 135, potassium 4.4, chloride 104, serum bicarbonate 20, BUN 14, creatinine 0.61, glucose 224. Lactated Ringer's infusing at 20 mg per hour. SCDs and [place] hose are on. Patient is hemodynamically stable. She will be monitored in the intensive care unit overnight. Review of Systems REVIEW OF SYSTEMS: CONSTITUTIONAL: Denies any recent significant weight loss or weight gain. EYES: Denies change in vision. EARS, NOSE, MOUTH, THROAT: Denies headaches, denies sore throat. CARDIOVASCULAR: Denies chest pain, palpitations or syncopal episodes. RESPIRATORY: Denies shortness of breath, cough, congestion or hemoptysis. GASTROINTESTINAL: Denies change in appetite, abdominal pain, nausea and vomiting, or diarrhea GENITOURINARY: Denies hematuria, denies infections. MUSKULOSKELETAL: See HPI INTEGUMENTARY: Denies rash, denies eczema. NEUROLOGICAL: Denies recent memory loss, no recent seizure activity. PSYCHIATRIC: Denies anxiety, denies depression. HEMATOLOGIC/LYMPHATIC: Denies anemia, denies enlarged lymph node Past Medical History Past Medical History: Blood Disorder, Coronary Artery Disease (CAD), Cancer, COPD, Diabetes Mellitus, Hyperlipidemia, Hypertension Additional Past Medical History / Comment(s): Iron deficiency anemia, hx iron infusions. Lower back pain, Varicose veins, occ edema feet, heart murmur, skin cancer on nose and left arm History of Any Multi-Drug Resistant Organisms: None Reported Past Surgical History: Appendectomy, Bladder Surgery, Heart Catheterization With Stent, Orthopedic Surgery, Tonsillectomy Additional Past Surgical History / Comment(s): Colonoscopy, EGD [place] bladder sling. Lt shoulder rotator cuff x 2, one cardiac stent, skin cancer removed from nose and left arm, mae cataracts Past Anesthesia/Blood Transfusion Reactions: No Reported Reaction Date of Last Stent Placement:: 01/28/2022 Past Psychological History: No Psychological Hx Reported Smoking Status: Current every day smoker Past Alcohol Use History: Rare Additional Past Alcohol Use History / Comment(s): Smokes 1 PPD, since 1965 est Past Drug Use History: None Reported - Past Family History Mother Family Medical History: Blood Disorder, Cancer Additional Family Medical History / Comment(s): Kidney cancer Daughter(s) Family Medical History: Cancer Additional Family Medical History / Comment(s): Breast cancer, liver cancer Father Family Medical History: Cancer Additional Family Medical History / Comment(s): Back cancer Medications and Allergies Home Medications Medication Instructions Recorded Confirmed Type Aspirin [Adult Low Dose Aspirin EC] 81 mg PO HS 09/10/18 01/27/23 History Losartan [Cozaar] 75 mg PO DAILY 09/10/18 01/27/23 History Omeprazole [PriLOSEC] 20 mg PO BID 09/10/18 01/27/23 History glipiZIDE [Glucotrol] 10 mg PO DAILY 08/28/20 01/27/23 History Cyanocobalamin (Vitamin B-12) 1,000 mcg PO DAILY 07/29/21 01/27/23 History [Vitamin B-12] Fluticasone/Vilanterol [Breo 1 puff INHALATION RT-DAILY PRN 07/29/21 01/27/23 History Ellipta 100-25 Mcg Inhaler] Gabapentin [Neurontin] 300 mg PO TID 07/29/21 01/27/23 History Fluticasone Nasal [place] [Flonase 1 spray EA NOSTRIL DAILY PRN 02/05/22 01/27/23 History Nasal [place]] Metoprolol Succinate [Toprol XL] 100 mg PO DAILY 02/05/22 01/27/23 History Rosuvastatin Calcium [Crestor] 40 mg PO HS 02/05/22 01/27/23 History Albuterol Sulfate [Albuterol 1 - 2 puff PO RT-Q6H PRN 09/09/22 01/27/23 History Sulfate Hfa] metFORMIN HCL 1,000 mg PO BID 09/09/22 01/27/23 History Ferrous Sulfate [Feosol] 325 mg PO DAILY 01/23/23 01/27/23 History Allergies Allergy/AdvReac Type Severity Reaction Status Date / Time No Known Allergies Allergy Verified 01/27/23 06:20 Physical Exam Vitals: Vital Signs Temp Pulse Pulse Pulse Resp BP BP 01/28/23 00:00 97.9 F 56 L 12 165/62 01/27/23 23:00 84 13 128/70 01/27/23 22:30 74 13 156/76 01/27/23 22:00 85 15 169/72 01/27/23 21:30 71 14 171/73 01/27/23 21:00 81 14 165/62 01/27/23 20:30 64 13 156/57 01/27/23 20:00 97.5 F L 68 12 155/65 01/27/23 19:00 56 L 8 L 173/109 01/27/23 18:45 52 L 9 L 173/109 01/27/23 18:30 51 L 43 H 168/68 01/27/23 18:15 52 L 36 H 172/68 01/27/23 18:00 52 L 9 L 170/64 01/27/23 17:45 70 8 L 160/89 01/27/23 17:30 70 21 158/46 01/27/23 17:15 54 L 8 L 162/64 01/27/23 17:00 68 24 143/52 01/27/23 16:45 66 14 158/59 01/27/23 16:30 69 14 168/73 01/27/23 16:15 96.0 F L 62 12 164/105 01/27/23 16:06 73 12 01/27/23 15:22 65 16 142/84 01/27/23 15:07 67 16 149/65 01/27/23 14:52 62 16 154/59 01/27/23 14:37 63 16 145/67 01/27/23 14:22 62 16 149/62 01/27/23 14:07 65 16 151/60 01/27/23 13:52 71 16 151/70 01/27/23 13:37 96.8 F L 67 18 167/70 01/27/23 07:27 98.5 F 52 L 16 BP Pulse Ox 01/28/23 00:00 94 L 01/27/23 23:00 94 L 01/27/23 22:30 91 L 01/27/23 22:00 96 01/27/23 21:30 98 01/27/23 21:00 99 01/27/23 20:30 100 01/27/23 20:00 100 01/27/23 19:00 98 01/27/23 18:45 100 01/27/23 18:30 99 01/27/23 18:15 100 01/27/23 18:00 98 01/27/23 17:45 98 01/27/23 17:30 100 01/27/23 17:15 100 01/27/23 17:00 100 01/27/23 16:45 100 01/27/23 16:30 100 01/27/23 16:15 98 01/27/23 16:06 01/27/23 15:22 98 01/27/23 15:07 96 01/27/23 14:52 96 01/27/23 14:37 96 01/27/23 14:22 94 L 01/27/23 14:07 94 L 01/27/23 13:52 97 01/27/23 13:37 98 01/27/23 07:27 171/90 97 Intake and Output 01/27/23 01/27/23 01/28/23 14:59 22:59 06:59 Intake Total 4552 360 20 Output Total 1775 515 375 Balance 7681 -682 -912 Intake: IV 4552 360 20 Lactated Ringers 1,000 ml 60 20 @ 20 mls/hr IV .Q24H [facility] Rx#:[id number] Output: Drainage 275 Back 275 Urine 575 515 100 Estimated Blood Loss 1200 Other: Voiding Method Indwelling Catheter Weight 86.6 kg 86.6 kg GENERAL EXAM: Alert, 72-year-old white female, comfortable in no apparent distress. HEAD: Normocephalic and atraumatic EYES: Normal reaction of pupils, equal size. NOSE: Clear with pink turbinates. THROAT: No erythema or exudates. NECK: No masses, no JVD. CHEST: No chest wall deformity. LUNGS: Equal air entry with no crackles, wheeze, rhonchi or dullness. On 2 L/m nasal cannula. No conversational dyspnea or accessory muscle use.. CVS: S1 and S2 normal with no audible murmur, regular rhythm. No extra heart sounds ABDOMEN: No hepatosplenomegaly, active bowel sounds, no guarding or rigidity. SPINE: Postoperative incisional dressing is clean, dry. Incision appears approximated. SKIN: No rashes CENTRAL NERVOUS SYSTEM: No focal deficits, tone is normal in all 4 extremities. Lower extremity strength grade 5/5 bilaterally. EXTREMITIES: There is no peripheral edema, clubbing, or cyanosis. Peripheral pulses are intact. Results - Laboratory Findings CBC and BMP: 01/27/23 16:31 01/27/23 16:31 Abnormal lab findings: Abnormal Labs 01/27/23 01/27/23 01/27/23 07:04 11:00 14:08 WBC RBC Hgb Neutrophils # Sodium Carbon Dioxide Glucose POC Glucose (mg/dL) 131 H 199 H 212 H Magnesium 01/27/23 01/27/23 01/27/23 16:08 16:31 16:31 WBC 12.7 H RBC 3.48 L Hgb 11.2 L Neutrophils # 10.8 H Sodium 135 L Carbon Dioxide 20 L Glucose 224 H POC Glucose (mg/dL) 237 H Magnesium 1.5 L 01/27/23 21:17 WBC RBC Hgb Neutrophils # Sodium Carbon Dioxide Glucose POC Glucose (mg/dL) 192 H Magnesium - Diagnostic Findings Chest x-ray: image reviewed Assessment and Plan Assessment: Status postoperative day #1 following a T10 to pelvis decompression and fusion. No immediate perioperative complications reported. Lumbar stenosis/spondylosis with radiculopathy Hypomagnesemia Mild leukocytosis, likely reactive from surgery Coronary artery disease, with previous PCI/stent to the left main and RCA Diabetes mellitus type 2 Hyperlipidemia Benign essential hypertension History of iron deficiency anemia History of COPD, stable Chronic ongoing tobacco dependence, currently smokes one half pack per day Plan: Patient's medications, labs, chest x-ray reviewed Patient is being monitored in the intensive care unit during her postoperative recovery. No immediate perioperative complications were reported. Follow up lumbar CT is pending. Maintenance COPD medications were resumed. Encourage incentive spirometer. Chest x-ray shows presumably bibasilar atelectasis. Currently on 2 L/m nasal cannula versus room air. Replace electrolytes per protocol Sliding scale NovoLog insulin for blood glucose control. Protonix for GI prophylaxis. SCDs and CLARE hose are on. Activity order and DVT prophylaxis per surgery Pain controlled with current analgesics. Smoking cessation counseling performed. We will continue to follow the patient while she is in the intensive care unit I have personally seen and examined the patient, performed the documentation and the assessment and plan as written. Number of minutes spent on the visit:20 Time with Patient: Greater than 30
[2023-01-28] MEDS: HYDROmorphone 1 MG/ML 1 ML SYRINGE IVP PRN ×6 (01:12→19:30)
[2023-01-28] MEDS: LACTATED RINGERS 1,000 ML IV SCH (05:58)
[2023-01-28 06:14] LABS: Basophils % (A) 0 %; Eosinophils % (A) 0 %; HCT 31.4 % (34.0-46.0); HGB 10.5 gm/dL (11.4-16.0); Lymphocytes # (A) 1.3 k/uL (1.0-4.8); Lymphocytes % (A) 11 %; MCH 32.2 pg (25.0-35.0); MCHC 33.3 g/dL (31.0-37.0); MCV 96.7 fL (80.0-100.0); Mean Platelet Volume 7.6; Monocytes % (A) 9 %; Neutrophils # (A) 9.7 k/uL (1.3-7.7); Neutrophils % (A) 79 %; Platelet Count 250 k/uL (150-450); RBC 3.25 m/uL (3.80-5.40); RDW 13.8 % (11.5-15.5); WBC 12.2 k/uL (3.8-10.6)
[2023-01-28 06:19] LABS: Glucose,Whole Blood 157 mg/dL (70-110)
[2023-01-28 06:21] LABS: African American GFR (CKD) >90 (>60 ml/min/1.73 sqM); Anion Gap 5 mmol/L; Blood Urea Nitrogen 11 mg/dL (7-17); Calcium 8.6 mg/dL (8.4-10.2); Carbon Dioxide 28 mmol/L (22-30); Chloride 102 mmol/L (98-107); Glucose 134 mg/dL (74-99); Magnesium 1.6 mg/dL (1.6-2.3); Non-African American GFR(CKD) >90 (>60 ml/min/1.73 sqM); Potassium 4.9 mmol/L (3.5-5.1); Sodium 135 mmol/L (137-145)
[2023-01-28] MEDS: PANTOPRAZOLE 40 MG TABLET PO SCH (06:21)
[2023-01-28] MEDS: INSULIN ASPART (NovoLOG) 100 UNIT/ML VIAL SQ SCH ×3 (06:22→17:05)
[2023-01-28] MEDS: MAGNESIUM SULFATE-D5W PMX 1 GM in DEXTROSE/WATER 1 100ML.BAG IVPB SCH ×2 (06:33→08:56)
[2023-01-28] MEDS: LOSARTAN 50 MG TAB PO SCH (08:57)
[2023-01-28] MEDS: FERROUS SULFATE 325 MG TAB PO SCH (08:57)
[2023-01-28] MEDS: MAGNESIUM HYDROXIDE 2,400 MG/30 ML CUP PO SCH (08:57)
[2023-01-28] MEDS: HYDROcodone/APAP 10-325MG 1 EACH TAB PO PRN ×2 (08:57→14:18)
[2023-01-28] MEDS: GABAPENTIN 300 MG CAP PO SCH ×3 (08:57→19:31)
[2023-01-28] MEDS: METOPROLOL SUCCINATE (ER) 100 MG TAB.ER.24H PO SCH (08:57)
[2023-01-28] MEDS: CYCLOBENZAPRINE 5 MG TAB PO PRN (09:13)
--- NOTE | 2023-01-28 10:16 | P.PN ---
Subjective Progress Note Date: 01/28/23 Principal diagnosis: Status post T10 to pelvis decompression and fusion Patient was examined today, she is resting in the ICU. Patient does note some worsening pain in the lower back along with worsening paresthesias in bilateral lower extremities. There was about 400 mL of bloody serosanguineous joint fluid noted from nursing in the drain, did adjust compression today. Patient was up in the chair for 2 hours earlier this morning. she has been utilizing a walker for ambulation. Urinary catheter remains in place at this time. She denies headaches, lightheadedness, chest pain or shortness of breath. Objective - Vital Signs Vital signs: Vital Signs Temp 98.7 F 01/28/23 04:00 Pulse 63 01/28/23 07:00 Resp 19 01/28/23 07:00 BP 120/48 01/28/23 07:00 Pulse Ox 100 01/28/23 07:00 FiO2 Intake & Output 01/27/23 01/28/23 01/28/23 18:59 06:59 18:59 Intake Total 4852 270 20 Output Total 2115 1440 175 Balance 2737 -1170 -155 Weight 86.6 kg 91.9 kg Intake: IV 4852 270 20 Lactated Ringers 1,000 ml 220 20 @ 20 mls/hr IV .Q24H [facility] Rx#:[id number] ceFAZolin 2 gm In Sodium 50 Chloride 0.9% 50 ml @ 100 mls/hr IVPB ONCE PRN Rx# :[id number] Output: Drainage 375 100 Back 375 100 Urine 915 1065 75 Estimated Blood Loss 1200 Other: Voiding Method Indwelling Catheter Indwelling Catheter - Exam Gen: AOx3, NAD VSS stable at this time Integument: Postoperative dressing is in good position condition, mild spotting noted. Compression on the drain was adjusted to 75% compressed, small amount of bloody serosanguineous drainage is noted Palpation: Mild tenderness with palpation noted to the lower thoracic and lumbar spine both paraspinal or midline ROM: Full range of motion in all major muscle groups of the bilateral upper and lower extremities, no focal deficits Sensory Exam: Senory exam to light touch is intact C5-T1 Senosry exam to light touch is intact L2-S1 Motor: 5/5 strength appreciated in the bilateral upper extremities with shoulder elevation, shoulder abduction, elbow extension, elbow flexion, wrist extension, wrist flexion, residential instructor 4/5 strength appreciated in the bilateral lower extremities with hip flexion, k nee extension, knee flexion, plantar flexion, dorsiflexion, EHL, FHL Reflexes: 2/4 in all UE and LE Negative Alexandria's bilaterally Negative Babinski bilaterally Negative clonus bilaterally - Labs CBC & Chem 7: 01/28/23 05:26 01/28/23 05:26 Labs: Abnormal Lab Results - Last 24 Hours (Table) 01/27/23 01/27/23 01/27/23 Range/Units 11:00 14:08 16:08 WBC (3.8-10.6) k/uL RBC (3.80-5.40) m/uL Hgb (11.4-16.0) gm/dL Hct (34.0-46.0) % Neutrophils # (1.3-7.7) k/uL Sodium (137-145) mmol/L Carbon Dioxide (22-30) mmol/L Glucose (74-99) mg/dL POC Glucose (mg/dL) 199 H 212 H 237 H (70-110) mg/dL Magnesium (1.6-2.3) mg/dL 01/27/23 01/27/23 01/27/23 Range/Units 16:31 16:31 21:17 WBC 12.7 H (3.8-10.6) k/uL RBC 3.48 L (3.80-5.40) m/uL Hgb 11.2 L (11.4-16.0) gm/dL Hct (34.0-46.0) % Neutrophils # 10.8 H (1.3-7.7) k/uL Sodium 135 L (137-145) mmol/L Carbon Dioxide 20 L (22-30) mmol/L Glucose 224 H (74-99) mg/dL POC Glucose (mg/dL) 192 H (70-110) mg/dL Magnesium 1.5 L (1.6-2.3) mg/dL 01/28/23 01/28/23 01/28/23 Range/Units 05:26 05:26 06:18 WBC 12.2 H (3.8-10.6) k/uL RBC 3.25 L (3.80-5.40) m/uL Hgb 10.5 L (11.4-16.0) gm/dL Hct 31.4 L (34.0-46.0) % Neutrophils # 9.7 H (1.3-7.7) k/uL Sodium 135 L (137-145) mmol/L Carbon Dioxide (22-30) mmol/L Glucose 134 H (74-99) mg/dL POC Glucose (mg/dL) 157 H (70-110) mg/dL Magnesium (1.6-2.3) mg/dL Assessment and Plan Assessment: Postoperative day #1 status post T10 to pelvis decompression and fusion Acute blood loss anemia, expected surgical outcome Other medical comorbidities Plan: Pain control, would like to continue use of Flexeril, gabapentin and [place]. She can also utilizing allotted as needed. We will on discussion regarding constipation issues with narcotics. I did advise we could possibly increase narcotics if needed. Patient was on numerous narcotic she states in the past, it took her a long time to get off of them. We will increase carefully continue Continue scheduled stool softeners DVT prophylaxis, begin heparin 5000 units every 12 tonight Wound care, monitor surgical dressing. Drain was adjusted to about 75% compression, keep in place at this time Weight-bear as tolerated, recommend walker at all times. TLSO brace we placed in chart, utilizes for longer distance walking PT/OT Encourage incentive spirometer Medical recommendations We'll continue to follow during hospital stay Time with Patient: Less than 30
[2023-01-28 11:05] LABS: Glucose,Whole Blood 190 mg/dL (70-110)
--- NOTE | 2023-01-28 11:39 | P.PN ---
Subjective Progress Note Date: 01/28/23 Pts only complaint today is pain, but overall says shes improving. Hgb down to 10.4. Gen: awake, alert HEENT: normocephalic, atraumatic, good hearing acuity, moist mucous membranes Resp: good air exchange, breathing comfortably with no accessory muscle use, clear to auscultation bilaterally CVS: good distal perfusion x 4, regular rate and rhythm without murmurs GI: soft, NTTP, ND : no SPT, no CVAT, june catheter is present MSK: Trace pitting edema, no clubbing Neuro: non-focal, moving all extremities Psych: cooperative, euthymic mood Hospital Course: 72-year-old woman with medical history of CAD status post stent in January 2022, hypertension, hyperlipidemia, diabetes, iron deficiency anemia, asthma, GERD presented for elective pelvis to T10 decompression and fusion. Medicine was consulted for medical management. Postoperatively, patient is noted to be afebrile, 142/84, heart rate 65, 98% on 2 L nasal cannula. She has a central line in the right internal jugular, recently removed arterial line. Only available lab work is blood glucose which ranges from 131-237. Her most recent hemoglobin is noted to be 14 on 12/30. Postoperative lumbar x-ray shows intraoperative surgical changes. Chest x-ray shows right-sided central line in good place, bilateral lower lobe atelectasis. Assessment/plan: Acute blood loss anemia, expected outcome of surgery Iron deficiency anemia -CBC ordered -A.m. CBC ordered, BMP, magnesium ordered -Magnesium replaced today -Resume oral iron Hypertension -Resume patient's metoprolol 100 mg daily -Resume patient's losartan 75 mg daily -We will add when necessary blood pressure medication if this does not resolve her hypertension Diabetes type 2 with hyperglycemia -Holding patient's home glipizide, metformin -Add low-dose sliding scale insulin and glucose monitoring Hyperlipidemia Asthma without exacerbation CAD GERD without esophagitis -Holding patient's aspirin until cleared by orthopedic surgery -Remainder medications reconciled Patient is full code Objective - Vital Signs Vital signs: Vital Signs Temp 98.6 F 01/28/23 08:00 Pulse 66 01/28/23 11:00 Resp 14 01/28/23 11:00 BP 152/75 01/28/23 11:00 Pulse Ox 99 01/28/23 11:00 FiO2 Intake & Output 01/27/23 01/28/23 01/28/23 18:59 06:59 18:59 Intake Total 4852 270 40 Output Total 0014 3617 425 Balance 3457 -1170 -710 Weight 86.6 kg 91.9 kg Intake: IV 4852 270 40 Lactated Ringers 1,000 ml 220 40 @ 20 mls/hr IV .Q24H [facility] Rx#:[id number] ceFAZolin 2 gm In Sodium 50 Chloride 0.9% 50 ml @ 100 mls/hr IVPB ONCE PRN Rx# :[id number] Output: Drainage 375 200 Back 375 200 Urine 915 1065 225 Estimated Blood Loss 1200 Other: Voiding Method Indwelling Catheter Indwelling Catheter Indwelling Catheter - Labs CBC & Chem 7: 01/28/23 05:26 01/28/23 05:26 Labs: Abnormal Lab Results - Last 24 Hours (Table) 01/27/23 01/27/23 01/27/23 Range/Units 14:08 16:08 16:31 WBC 12.7 H (3.8-10.6) k/uL RBC 3.48 L (3.80-5.40) m/uL Hgb 11.2 L (11.4-16.0) gm/dL Hct (34.0-46.0) % Neutrophils # 10.8 H (1.3-7.7) k/uL Sodium (137-145) mmol/L Carbon Dioxide (22-30) mmol/L Glucose (74-99) mg/dL POC Glucose (mg/dL) 212 H 237 H (70-110) mg/dL Magnesium (1.6-2.3) mg/dL 01/27/23 01/27/23 01/28/23 Range/Units 16:31 21:17 05:26 WBC 12.2 H (3.8-10.6) k/uL RBC 3.25 L (3.80-5.40) m/uL Hgb 10.5 L (11.4-16.0) gm/dL Hct 31.4 L (34.0-46.0) % Neutrophils # 9.7 H (1.3-7.7) k/uL Sodium 135 L (137-145) mmol/L Carbon Dioxide 20 L (22-30) mmol/L Glucose 224 H (74-99) mg/dL POC Glucose (mg/dL) 192 H (70-110) mg/dL Magnesium 1.5 L (1.6-2.3) mg/dL 01/28/23 01/28/23 01/28/23 Range/Units 05:26 06:18 11:03 WBC (3.8-10.6) k/uL RBC (3.80-5.40) m/uL Hgb (11.4-16.0) gm/dL Hct (34.0-46.0) % Neutrophils # (1.3-7.7) k/uL Sodium 135 L (137-145) mmol/L Carbon Dioxide (22-30) mmol/L Glucose 134 H (74-99) mg/dL POC Glucose (mg/dL) 157 H 190 H (70-110) mg/dL Magnesium (1.6-2.3) mg/dL
--- NOTE | 2023-01-28 14:15 | P.OP ---
Date of Procedure: 01/27/23 Preoperative Diagnosis: 1. L1-S1 SPONDYLOSIS, SEVERE WITH SEVERE STENOSIS 2. NEUROGENIC CLAUDICATION 3. LOW BACK PAIN 4. LE WEAKNESS Postoperative Diagnosis: 1. L1-S1 SPONDYLOSIS, SEVERE WITH SEVERE STENOSIS 2. NEUROGENIC CLAUDICATION 3. LOW BACK PAIN 4. LE WEAKNESS Procedure(s) Performed: 1. L2-3, L4-5 INTRADISCAL OSTEOTOMY, 3 COLUMN, FOR DEFORMITY CORRECTION (22638, 48293) 2. L2-3, L3-4, L4-5, L5-S1 POSERIOLATERAL AND INTERBODY FUSION (18331, 03280 X3) 3. T10-L2 POSTERIOLATERAL FUSION, INSTRUMENTED (63901, 909735)/59 4. L1-2, L2-3, L3-4, L4-5, L5-S1 BILATERAL LAMINECTOMY, FACETECTOMY AND FORAMINOTOMY (13499, 77376 X4) 5. L80-QDLXVQ INSTRUMENTATION (65656) 6. ATTACHMENT OF CONSTRUCT TO BONY PELVIS NOT SACRUM (42295) 7. INSERTION OF BIOMECHANICAL DEVICE L2-3, L3-4, L4-5, L5-S1 (67381N3) 8. USE OF DivvyHQ NAVIGATION FOR SCREW PLACEMENT (83863) USE OF IONM ALL SCREWS TESTING >19mA Implants: -PB EVEREST SCREW AND BALAJI SYSTEM -GLOBUS SABLE CAGE X4 -MAGNATOS, CONTOUR, ARTHROCELL, AUTOGRAFT Anesthesia: GETA Surgeon: Olvin Garcia Powerhouse Mechanic #1: Margarito Hsieh (WAS PRESENT AND ASSISTED WITH ALL ASPECTS OF THE CASE FROM POSITION TO DRESSING PLACEMENT) Estimated Blood Loss (ml): 1,200 IV fluids (ml): 3,700 Urine output (ml): 1,100 Pathology: none sent Condition: stable Disposition: PACU Indications for Procedure: Ms. Vizcarra is presenting for evaluation of low back and bilateral lower extremity pain, bilateral lower extremity numbness, tingling, and weakness. It was my pleasure to have seen and examined Ms. Vizcarra. In our visit today we have had a chance to go over subjective complaints, physical examination findings and treatments including the natural course history without intervention and various interventional options. The patients imaging demonstrates: XRay taken on 01/02/22 of Lumbar Spine: - Images are re-reviewed with the patient today. These demonstrate severe spondylosis L2 through S1 with disc height loss as well as sclerosis. There is facet arthrosis which is noted throughout as well. There is a degenerative scoliosis which is centered around the L2-L3 region which is a dextroscoliosis with approximately 25. This is due to lateral collapse and differential collapse throughout. The fractional curve is well- developed L5-S1. There is no acute fracture noted at this time. There is very degrees of anterior listhesis as well as retrolisthesis throughout due to the overall unstable nature. lumbar lordosis is flattened secondary to these findings with Blount around 20 of lumbar lordosis pelvic incidence around 68 AP pelvis demonstrates congruent level pelvis without fracture MRI [facility] at [facility] from12/04/2021 of LumbarSpine: - Images are re-reviewed with the patient today. These images demonstrate severe stenosis L2 through S1 due to severe spondylosis and degenerative lumbar scoliosis. There is disc height loss disc collapsed disc degeneration which is noted throughout these levels. There is facet arthrosis as well as hypertrophy with ligamentum hypertrophy which contributes to the central as well as foraminal stenosis at these levels. This is moderate to severe throughout the whole L2 through S1 region. There is differential collapse causing a dextroscoliosis to this. No acute fracture or dislocations noted. Again there is very degrees of retrolisthesis as well as anterior listhesis throughout the lumbar spine. On physical exam, Ms. Vizcarra demonstrates: a worsening ache-like, burning pain throughout the low back that radiates down into the bilateral lower extremities. She notes that her lower extremity pain is associated with numbness, tingling, and weakness. The patient states her symptoms are exacerbated by all activity, which makes it very difficult for her to complete any of her activities of daily living. The patient reports experiencing moderate to severe sleep disturbances related to her ongoin pain and associated symptoms. She states her symptoms have started to become intractable. I have explained to the patient that as their condition progresses it will cause further neurological deficits and eventual paralysis. Based on the patients imaging, physical exam, and the rapid progression and disabling nature of their symptoms, at this time I recommend surgery in the form of a: [id number] decompression and fusion. I discussed the risk and benefits of this procedure at length with Ms. Vizcarra. The patient agreed to considered pursuing the procedure abovementioned. Prior to surgery, she should follow up with her PCP (Cardio, ID, IM etc) for clearance. Questions were invited and answered, and the patient wishes to proceed as outlined below. Currently, I am recommendin.J96-jurdne decompression and fusion Description of Procedure: [id number] Decompression and fusion JELANI The patient was seen and examined in the preoperative area. All preoperative protocols were followed. Informed consent was obtained, risks and benefits of the procedure were discussed at length. Risks including bleeding infection damage to the surrounding tissue and risk of re-operation were discussed with the patient. Risk of anesthesia up to and including was discussed with the patient. These are outlined in the risk review. They were willing to accept these risks and all the risks of surgery. The patient was given a weight-based dose of antibiotics in the form of 3 g Ancef. The patient was seen and evaluated by the anesthesia team who deemed them fit for surgery. The site was marked, the patient was willing to proceed with the procedure. The patient was transferred to the operative suite by the Department of anesthesia. They were then drifted off to sleep by the department anesthesia and GETA was performed. The patient tolerated this well. Blount catheter was placed by nursing staff, a-traumatically. Once confirmation of lines and ventilation the patient was transferred to a prone Trios spine table very carefully. The head was secured and stable. Xray confirmed alignment. All b india prominences including wrists, elbows, axilla, chest, hips, and thighs, and feet were padded very well. Special attention was paid to the genitalia, and these were padded accordingly. SCDs were placed on bilateral lower extremities and were connected. Arms were well padded and placed at 90/90 up and out and well padded. Safety strap and tape placed on the patient. Once in position, again we confirmed good ventilation capabilities and that lines were running appropriately. The patients lumbosacral pelvic was then exposed. Hair was removed for incision. 1010s were placed outlining the incision site. Standard alcohol was used to clean the incision site and allowed to dry. C-arm was used to bio-bertrand the patient and confirm level for incision which was marked with a skin marker. Operative briefing was performed with all teams and everyone in agreement to proceed. The patient was then prepped and draped in a normal sterile fashion. Timeout was then performed, and all parties agreed with the procedure to be performed. Midline skin incision was then made over the previously bookmarked area and dissection taken down to the lumbosacral fascia which was identified and cleaned with a white. Once midline was identified, fasciotomy was made over the SP of [id number]-gldgar. Subperiosteal dissection was then taken down over the lamina and facet joints and TPs were exposed and trough made posterolateral. TPs were then decorticated L1-S1 and sacral ala with a high speed margarita for lateral fusion. Dissection was taken out over the sacrum to the pelvis. SI joint identified and modified Wilson starting point for pelvic screws identified as well. Retractors placed. Wound was irrigated and lateral image with penfield 4 placed at the pars of L4 confirmed levels for operation. SP clamp was then placed for the Impulsiv navigation tracker and secured at L2 for the first set of screws. The wound was then filled with NSS and Z-drape placed. A 3D Zhiem spin was then obtained and registered. Once confirmation of accuracy screws were then placed from T10-L2 using navigation. Navigated high speed margarita was used to make a towboat pilot hole followed by a navigated awl-tap passed through the pedicle into the body. A ball tip probe then confirmed within the pedicle. Globus Screws then measured and placed using a navigated screwdriver. After screws were placed from T10-L2 the tracker was replaced at S1 and a second 3D Zhiem spin was then obtained and registered. Once confirmation of accuracy screws were then placed from L3-Pelvis using navigation. AP image confirmed safe placement of screws. Lateral images as well as navigation were then used to place bilateral pelvic screws. Starting point selected just lateral to the SI joint and S2 pseudo facet. Lateral image taken and margarita used to make the towboat pilot hole. Gearshift then used to pass into the pelvis under lateral imaging just above the sciatic notch. 30 deg/30deg iliac oblique then taken to confirm within the teardrop and ball tip probe used to probe good bone. Screw was then measured and selected and placed under lateral imaging. This was repeated on the contralateral side. Screws were then visualized and were safe. A second Zheim spin was obtained and confirmed safe screw placement. Screws were then tested, and reliably tested screws tested above 19 mA. The wound was irrigated and attention was turned to decompression, correction and interbody fusion. Starting at L5-S1, bilateral laminectomy, complete facetectomy and foraminotomies were performed using high speed bur, Kerrison rongure. Osteotome was used to access disc space after mobilizing neural elements and protecting them. Sequential shaving then done and disc removed. Good bleeding endplates encountered. Cage was then selected based on shaving and trials. Bleeding endplates were encountered and cartilage removed. Autograft, allograft were then placed anterior to the cage. The cage was then impacted into place under lateral imaging while protecting neural elements. The cage was then expanded into position and showed good lift and correction. Confucianist of lordosis and height achieved. Meticulous hemostasis then performed. Cage was backfilled with DBM and the area irrigated. We then proceeded to L4-5. Attention then drawn to L4-5, bilateral laminectomy, complete facetectomy and foraminotomies were performed using high speed bur, Kerrison rongure. There was exuberant bone formation, osteophytes and scar tissue surrounding these joints as well as the dura. Once exposed the neural elements were protected and an intradiscal osteotomy, 3 column, was performed for deformity correction at L5- S1. Osteotome was used to make osteotomy in L5 and S1 and for complete disc removal. A box osteotome was then used to widen this bilaterally. This was passed into the anterior 1/3 of L5. This allowed for loosening of this level and correction. Cage was then selected based on shaving and trials. Bleeding endplates were encountered and cartilage removed. Autograft, allograft were then placed anterior to the cage. The cage was then impacted into place under lateral imaging while protecting neural elements. The cage was then expanded into position and showed good lift and correction. Confucianist of lordosis and height achieved. Meticulous hemostasis then performed. Cage was backfilled with DBM and the area irrigated. We then proceeded to L4-5. At L3-4 again bilateral laminectomy, complete facetectomy and foraminotomy were performed. The neural elements were less scared at this level; however, it was very unstable. The elements were then protected, and disc space accessed. Sequential shaving performed until desired height and lordosis. Cage selected, and graft placed anterior to the cage within the disc space. Cage was then placed under lateral image, expanded and had good height, lordosis and deformity correction. The wound was irrigated, and meticulous hemostasis performed once again. We then proceeded to L2-3 level. At L2-3, bilateral laminectomy, complete facetectomy and foraminotomy was performed as described above. Again, exuberant scar tissue and bone formation was encountered and at this level. A large disc osteophyte complex that was identified once disc space was found. The dura was carefully dissected off this anteriorly and b/l. Once encountered, the disc space was then accessed in a similar fashion and neural elements protected. Intradiscal, 3 column osteotomies, for deformity correction was then performed again at this level as described above. Once completed and complete discectomy performed there was good mobility at this level. Cage was then sized and selected. Autograft and allograft was then placed anterior in the disc space and the cage was then inserted and impacted into place under lateral. AP image, as before, was taken to ensure midline placement. The cage was then expanded into position. The wound was irrigated. Meticulous hemostasis then performed and the wound irrigated. Attention was then drawn to balaji placement and further reduction. Rods were selected, measured, cut and bent to appropriate lordosis. They were then secure d into pelvic screws b/l. Sequential reduction then done into each screw and set screw placed. Set screws were then final tightened and lateral image showed good lordosis reduction with increase around 15-20 deg from starting. Once rods were secured, cross links were selected and placed and final tightened. The wound was then irrigated with 3L Ancef irrigation, 3L gentamicin irrigation and 3L NSS. Surgicel was then placed on the dura, which was inspected and had no injury. Then, in the posterolateral gutter was placed, MagnatOs, Autograft and allograft. This was impacted into position and surgical placed over it. 2g Vanco powder was then placed deep in the wound. Two deep, subfascial drains were placed and secured with a stitch. We then proceeded with layered closure. #1 PDS placed in the deep fascia followed by a running unidirectional 0 stratafix. 0 Vicryl placed in the deep subq, 2-0 placed in the superficial subq and chema placed in the skin. The wound edges approximated very well. The wound was then cleaned with ETOH and dressed with optifoam dressing, drain sponges and tegaderms. Drains sewed into position. IONM confirmed no changes. The patient was then transferred off the Trios spine table to their hospital bed a-traumatically. Drains continued to hold suction. The patient was then extubated and transferred to the ICU in stable condition having tolerated the procedure with no complications.
[2023-01-28 17:01] LABS: Glucose,Whole Blood 181 mg/dL (70-110)
[2023-01-28] MEDS: SENNOSIDES-DOCUSATE SODIUM 1 EACH TAB PO SCH (17:05)
[2023-01-28] MEDS: ATORVASTATIN 80 MG TAB PO SCH (19:31)
[2023-01-28 21:25] LABS: Glucose,Whole Blood 176 mg/dL (70-110)
[2023-01-29] MEDS: ACETAMINOPHEN TAB 325 MG TAB PO SCH ×5 (00:14→23:21)
[2023-01-29] MEDS: HYDROcodone/APAP 10-325MG 1 EACH TAB PO PRN ×2 (00:16→08:33)
[2023-01-29 05:39] LABS: Glucose,Whole Blood 178 mg/dL (70-110)
[2023-01-29] MEDS: CYCLOBENZAPRINE 5 MG TAB PO PRN ×2 (05:39→20:08)
[2023-01-29] MEDS: HYDROmorphone 1 MG/ML 1 ML SYRINGE IVP PRN ×3 (05:39→20:08)
[2023-01-29] MEDS: LACTATED RINGERS 1,000 ML IV SCH (05:40)
[2023-01-29] MEDS: INSULIN ASPART (NovoLOG) 100 UNIT/ML VIAL SQ SCH ×3 (06:41→17:11)
[2023-01-29] MEDS: FERROUS SULFATE 325 MG TAB PO SCH (08:32)
[2023-01-29] MEDS: PANTOPRAZOLE 40 MG TABLET PO SCH (08:32)
[2023-01-29] MEDS: GABAPENTIN 300 MG CAP PO SCH ×3 (08:32→20:08)
[2023-01-29] MEDS: MAGNESIUM HYDROXIDE 2,400 MG/30 ML CUP PO SCH (08:32)
[2023-01-29] MEDS: METOPROLOL SUCCINATE (ER) 100 MG TAB.ER.24H PO SCH (08:33)
[2023-01-29] MEDS: LOSARTAN 50 MG TAB PO SCH (10:18)
[2023-01-29] MEDS: guaiFENesin-DM 600/30MG 1 EACH TAB.ER.12H PO SCH ×2 (10:32→20:08)
[2023-01-29] MEDS: HEPARIN SODIUM,PORCINE 5,000 UNIT/ML 1 ML VIAL SQ SCH ×2 (10:32→20:08)
[2023-01-29 11:06] LABS: Basophils # (A) 0.02 X 10*3/uL (0.00-0.10); Basophils % (A) 0.2 %; Eosinophils # (A) 0.04 X 10*3/uL (0.04-0.35); Eosinophils % (A) 0.4 %; HCT 27.7 % (37.2-46.3); HGB 8.9 d/dL (12.0-15.0); Lymphocytes # (A) 1.35 X 10*3/uL (0.90-5.00); Lymphocytes % (A) 13.3 %; MCH 31.1 pg (27.0-32.0); MCHC 32.1 d/dL (32.0-37.0); MCV 96.9 FL (80.0-97.0); Mean Platelet Volume 10.2 FL (9.5-12.2); Monocytes # (A) 1.28 X 10*3/uL (0.20-1.00); Monocytes % (A) 12.6 %; NRBC Per 100 WBC 0.02 X 10*3/uL (0.00-0.01); Neutrophils # (A) 7.45 X 10*3/uL (1.80-7.70); Neutrophils % (A) 73.1 %; Platelet Count 197 X 10*3/uL (140-440); RBC 2.86 X 10*6/uL (4.10-5.20); RDW 13.9 % (11.5-14.5); WBC 10.18 X 10*3/uL (4.50-10.00)
[2023-01-29 11:09] LABS: Glucose,Whole Blood 192 mg/dL (70-110)
--- NOTE | 2023-01-29 11:19 | P.PN ---
Subjective Progress Note Date: 01/29/23 Pts only complaint today is pain, but overall says shes improving. Hgb down to 8.9 Gen: awake, alert HEENT: normocephalic, atraumatic, good hearing acuity, moist mucous membranes Resp: good air exchange, breathing comfortably with no accessory muscle use, clear to auscultation bilaterally CVS: good distal perfusion x 4, regular rate and rhythm without murmurs GI: soft, NTTP, ND : no SPT, no CVAT, june catheter is present MSK: Trace pitting edema, no clubbing Neuro: non-focal, moving all extremities Psych: cooperative, euthymic mood Hospital Course: 72-year-old woman with medical history of CAD status post stent in January 2022, hypertension, hyperlipidemia, diabetes, iron deficiency anemia, asthma, GERD presented for elective pelvis to T10 decompression and fusion. Medicine was consulted for medical management. Postoperatively, patient is noted to be afebrile, 142/84, heart rate 65, 98% on 2 L nasal cannula. She has a central line in the right internal jugular, recently removed arterial line. Only available lab work is blood glucose which ranges from 131-237. Her most recent hemoglobin is noted to be 14 on 12/30. Postoperative lumbar x-ray shows intraoperative surgical changes. Chest x-ray shows right-sided central line in good place, bilateral lower lobe atelectasis. Assessment/plan: Acute blood loss anemia, expected outcome of surgery Iron deficiency anemia -CBC ordered -A.m. CBC ordered, BMP, magnesium ordered -Magnesium replaced today -Resume oral iron Hypertension -Resume patient's metoprolol 100 mg daily -Resume patient's losartan 75 mg daily -We will add when necessary blood pressure medication if this does not resolve her hypertension Diabetes type 2 with hyperglycemia -Holding patient's home glipizide, metformin -Add low-dose sliding scale insulin and glucose monitoring Hyperlipidemia Asthma without exacerbation CAD GERD without esophagitis -Holding patient's aspirin until cleared by orthopedic surgery -Remainder medications reconciled Patient is full code Objective - Vital Signs Vital signs: Vital Signs Temp 97.4 F L 01/29/23 07:24 Pulse 83 01/29/23 07:24 Resp 17 01/29/23 07:24 BP 101/61 01/29/23 07:24 Pulse Ox 93 L 01/29/23 07:24 FiO2 Intake & Output 11/01/23 11/02/23 11/02/23 18:59 06:59 18:59 Intake Total 40 Output Total 425 650 650 Balance -385 -650 -650 Intake: IV 40 Lactated Ringers 1,000 ml 40 @ 20 mls/hr IV .Q24H COUNTS INCLUDE 234 BEDS AT THE [facility] Rx#:[id number] Output: Drainage 200 300 Back 200 300 Urine 225 650 350 Uretheral (June) 350 Other: Voiding Method Indwelling Catheter Indwelling Catheter Indwelling Catheter # Voids 1 - Labs CBC & Chem 7: 01/29/23 07:10 01/28/23 05:26 Labs: Abnormal Lab Results - Last 24 Hours (Table) 01/28/23 01/28/23 01/29/23 Range/Units 16:59 21:09 05:38 WBC (4.50-10.00) X 10*3/uL RBC (4.10-5.20) X 10*6/uL Hgb (12.0-15.0) d/dL Hct (37.2-46.3) % Monocytes # (0.20-1.00) X 10*3/uL NRBC/100 WBC Diff (0.00-0.01) X 10*3/uL POC Glucose (mg/dL) 181 H 176 H 178 H (70-110) mg/dL 01/29/23 01/29/23 Range/Units 07:10 11:08 WBC 10.18 H (4.50-10.00) X 10*3/uL RBC 2.86 L (4.10-5.20) X 10*6/uL Hgb 8.9 L (12.0-15.0) d/dL Hct 27.7 L (37.2-46.3) % Monocytes # 1.28 H (0.20-1.00) X 10*3/uL NRBC/100 WBC Diff 0.02 H (0.00-0.01) X 10*3/uL POC Glucose (mg/dL) 192 H (70-110) mg/dL
--- NOTE | 2023-01-29 11:33 | P.PN ---
Subjective Progress Note Date: 01/29/23 Principal diagnosis: Status post T10 to pelvis decompression and fusion Patient was examined today, patient was transferred to medical/surgical floor. She is resting in her hospital bed, is present at bedside. The urinary catheter has been removed. Patient's hemoglobin was noted to be 8.9 this morning. Patient has not been out of bed she states at this time, therapy has not been by currently. We are waiting for the TLSO brace to be fitted. She states she is feeling a lot better with pain control today. Denies headaches, lightheadedness, chest pain or shortness of breath Objective - Vital Signs Vital signs: Vital Signs Temp 97.4 F L 01/29/23 07:24 Pulse 83 01/29/23 07:24 Resp 17 01/29/23 07:24 BP 101/61 01/29/23 07:24 Pulse Ox 93 L 01/29/23 07:24 FiO2 Intake & Output 01/28/23 01/29/23 01/29/23 18:59 06:59 18:59 Intake Total 40 Output Total 425 650 650 Balance -385 -650 -650 Intake: IV 40 Lactated Ringers 1,000 ml 40 @ 20 mls/hr IV .Q24H [facility] Rx#:[id number] Output: Drainage 200 300 Back 200 300 Urine 225 650 350 Uretheral (Blount) 350 Other: Voiding Method Indwelling Catheter Indwelling Catheter Indwelling Catheter # Voids 1 - Exam Gen: AOx3, NAD VSS stable at this time Integument: Postoperative dressing is in good position condition, mild spotting noted. Compression on the drain was adjusted to 75% compressed, small amount of bloody serosanguineous drainage is noted Palpation: Mild tenderness with palpation noted to the lower thoracic and lumbar spine both paraspinal or midline ROM: Full range of motion in all major muscle groups of the bilateral upper and lower extremities, no focal deficits Sensory Exam: Senory exam to light touch is intact C5-T1 Senosry exam to light touch is intact L2-S1 Motor: 5/5 strength appreciated in the bilateral upper extremities with shoulder elevation, shoulder abduction, elbow extension, elbow flexion, wrist extension, wrist flexion, endless belt finisher 4/5 strength appreciated in the bilateral lower extremities with hip flexion, knee extension, knee flexion, plantar flexion, dorsiflexion, EHL, FHL Reflexes: 2/4 in all UE and LE Negative Alexandria's bilaterally Negative Babinski bilaterally Negative clonus bilaterally - Labs CBC & Chem 7: 01/29/23 07:10 01/28/23 05:26 Labs: Abnormal Lab Results - Last 24 Hours (Table) 01/28/23 01/28/23 01/29/23 Range/Units 16:59 21:09 05:38 WBC (4.50-10.00) X 10*3/uL RBC (4.10-5.20) X 10*6/uL Hgb (12.0-15.0) d/dL Hct (37.2-46.3) % Monocytes # (0.20-1.00) X 10*3/uL NRBC/100 WBC Diff (0.00-0.01) X 10*3/uL POC Glucose (mg/dL) 181 H 176 H 178 H (70-110) mg/dL 01/29/23 01/29/23 Range/Units 07:10 11:08 WBC 10.18 H (4.50-10.00) X 10*3/uL RBC 2.86 L (4.10-5.20) X 10*6/uL Hgb 8.9 L (12.0-15.0) d/dL Hct 27.7 L (37.2-46.3) % Monocytes # 1.28 H (0.20-1.00) X 10*3/uL NRBC/100 WBC Diff 0.02 H (0.00-0.01) X 10*3/uL POC Glucose (mg/dL) 192 H (70-110) mg/dL Assessment and Plan Assessment: Postoperative day #2 status post T10 to pelvis decompression and fusion Acute blood loss anemia, expected surgical outcome Other medical comorbidities Plan: Pain control, continue current medications Continue scheduled stool softeners DVT prophylaxis, continue heparin 5000 units every 12 hours Wound care, continue to monitor both stressing and drain output. Planning for dressing change on 01/30/2023 Weight-bear as tolerated, recommend walker at all times. Patient can be up walking in the room with walker without brace, longer distances require use of TLSO brace. PT/OT Encourage incentive spirometer Medical recommendations We'll continue to follow during hospital stay Time with Patient: Less than 30
--- NOTE | 2023-01-29 13:25 | P.PN ---
Subjective Progress Note Date: 01/29/23 I am seeing this patient in consultation today 01/28/2023 in the intensive care unit status/post an elective T10 to pelvis decompression and fusion that was completed yesterday. Patient is a 72-year-old white female with past medical history significant for chronic lumbar back pain, coronary artery disease with previous stent to the left main and RCA, diabetes mellitus, hyperlipidemia, hypertension, iron deficiency anemia, COPD, among other things. Patient states that she's been experiencing chronic lumbar back pain over the last several years. 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 For the past 3 years, however, symptoms have progressively become worse. She's been experiencing radiculopathy like symptoms down bilateral legs. Denies urine or fecal incontinence. A CT of the thoracic and lumbar spine without contrast done back in October of this year showed multilevel lumbar central stenosis and multilevel degenerative disc disease of t he thoracic spine without evidence of herniation or central stenosis. Patient was brought in for an elective T10 to pelvis decompression and fusion yesterday. No immediate perioperative complications reported. Patient was extubated successfully in recovery. Patient is currently sitting up in the chair, on 2 L/m nasal cannula, in no acute distress. Chest x-ray shows bilateral lower lobe atelectasis. She is getting ready to go down for her follow up postoperative lumbar CT. Neurovascular status of the lower extremities appears intact. There is some post-surgical incisional pain reported. Incisional dressing appears clean, dry, and intact. Postoperative CBC shows a WBC count of 12.7, hemoglobin 11.2, hematocrit 34.1, platelet 238. BMP postoperatively shows sodium 135, potassium 4.4, chloride 104, serum bicarbonate 20, BUN 14, creatinine 0.61, glucose 224. Lactated Ringer's infusing at 20 mg per hour. SCDs and Rusty hose are on. Patient is hemodynamically stable. She will be monitored in the intensive care unit overnight. The patient is seen today 01/29/2023 in follow-up on the regular medical floor. She is awake and alert in no acute distress. She is maintaining O2 saturations in the 90s on 2 L/m per nasal cannula. She does have a loose nonproductive cough. She is congested. She is working with the incentive spirometer. White count 10.1. Hemoglobin 8.9. Platelets 197. Glucose 192. She is continuing on Symbicort, albuterol, cefazolin. Heparin for DVT prophylaxis. Surgical pain is better controlled. To be working with physical therapy. To be up with a walker. TLSO brace is pending. Objective - Vital Signs Vital signs: Vital Signs Temp 97.4 F L 01/29/23 07:24 Pulse 83 01/29/23 07:24 Resp 17 01/29/23 07:24 BP 101/61 01/29/23 07:24 Pulse Ox 93 L 01/29/23 07:24 FiO2 Intake & Output 01/28/23 01/29/23 01/29/23 18:59 06:59 18:59 Intake Total 40 Output Total 425 650 950 Balance -385 -650 -950 Intake: IV 40 Lactated Ringers 1,000 ml 40 @ 20 mls/hr IV .Q24H [facility] Rx#:[id number] Output: Drainage 200 450 Back 200 450 Urine 225 650 500 Uretheral (Blount) 350 Other: Voiding Method Indwelling Catheter Indwelling Catheter Indwelling Catheter # Voids 1 - Exam GENERAL EXAM: Alert, pleasant 72-year-old female, on 2 L nasal cannula, fairly comfortable in no apparent distress. HEAD: Normocephalic and atraumatic EYES: Normal reaction of pupils, equal size. NOSE: Clear with pink turbinates. THROAT: No erythema or exudates. NECK: No masses, no JVD. CHEST: No chest wall deformity. LUNGS: Equal air entry with no crackles, wheeze, rhonchi or dullness. No conversational dyspnea. CVS: S1 and S2 normal with no audible murmur, regular rhythm. No extra heart sounds ABDOMEN: No hepatosplenomegaly, active bowel sounds, no guarding or rigidity. SPINE: Postoperative incisional dressing is clean, dry. Incision appears approximated. SKIN: No rashes CENTRAL NERVOUS SYSTEM: No focal deficits, tone is normal in all 4 extremities. Lower extremity strength grade 5/5 bilaterally. EXTREMITIES: There is no peripheral edema, clubbing, or cyanosis. Peripheral pulses are intact. - Labs CBC & Chem 7: 01/29/23 07:10 01/28/23 05:26 Labs: Abnormal Lab Results - Last 24 Hours (Table) 01/28/23 01/28/23 01/29/23 Range/Units 16:59 21:09 05:38 WBC (4.50-10.00) X 10*3/uL RBC (4.10-5.20) X 10*6/uL Hgb (12.0-15.0) d/dL Hct (37.2-46.3) % Monocytes # (0.20-1.00) X 10*3/uL NRBC/100 WBC Diff (0.00-0.01) X 10*3/uL POC Glucose (mg/dL) 181 H 176 H 178 H (70-110) mg/dL 01/29/23 01/29/23 Range/Units 07:10 11:08 WBC 10.18 H (4.50-10.00) X 10*3/uL RBC 2.86 L (4.10-5.20) X 10*6/uL Hgb 8.9 L (12.0-15.0) d/dL Hct 27.7 L (37.2-46.3) % Monocytes # 1.28 H (0.20-1.00) X 10*3/uL NRBC/100 WBC Diff 0.02 H (0.00-0.01) X 10*3/uL POC Glucose (mg/dL) 192 H (70-110) mg/dL Assessment and Plan Assessment: Status postoperative day #2 following a T10 to pelvis decompression and fusion. No immediate perioperative complications reported. Lumbar stenosis/spondylosis with radiculopathy Hypomagnesemia Mild leukocytosis, likely reactive from surgery Coronary artery disease, with previous PCI/stent to the left main and RCA Diabetes mellitus type 2 Hyperlipidemia Benign essential hypertension History of iron deficiency anemia History of COPD, stable Chronic ongoing tobacco dependence, currently smokes one half pack per day Plan: The patient was seen and evaluated Somewhat congested today Working with the incentive spirometer Add flutter valve Add Mucinex Titrate the FiO2 as tolerated Increase her activity as tolerated We will continue to follow I have personally seen and examined the patient, performed the documentation and the assessment and plan as written. Number of minutes spent on the visit: 10.
[2023-01-29 16:12] LABS: Glucose,Whole Blood 200 mg/dL (70-110)
[2023-01-29] MEDS: SENNOSIDES-DOCUSATE SODIUM 1 EACH TAB PO SCH (17:02)
[2023-01-29 19:40] LABS: Glucose,Whole Blood 180 mg/dL (70-110)
[2023-01-29] MEDS: ATORVASTATIN 80 MG TAB PO SCH (20:08)
[2023-01-30] MEDS: HYDROmorphone 1 MG/ML 1 ML SYRINGE IVP PRN ×2 (02:07→06:13)
[2023-01-30 06:02] LABS: Glucose,Whole Blood 200 mg/dL (70-110)
[2023-01-30] MEDS: LACTATED RINGERS 1,000 ML IV SCH (06:10)
[2023-01-30] MEDS: INSULIN ASPART (NovoLOG) 100 UNIT/ML VIAL SQ SCH ×2 (06:13→12:38)
[2023-01-30] MEDS: PANTOPRAZOLE 40 MG TABLET PO SCH (06:13)
[2023-01-30] MEDS: ACETAMINOPHEN TAB 325 MG TAB PO SCH ×2 (06:13→12:37)
[2023-01-30] MEDS: GABAPENTIN 300 MG CAP PO SCH (08:59)
[2023-01-30] MEDS: guaiFENesin-DM 600/30MG 1 EACH TAB.ER.12H PO SCH (08:59)
[2023-01-30] MEDS: METOPROLOL SUCCINATE (ER) 100 MG TAB.ER.24H PO SCH (08:59)
[2023-01-30] MEDS: HYDROcodone/APAP 10-325MG 1 EACH TAB PO PRN ×2 (08:59→13:18)
[2023-01-30] MEDS: MAGNESIUM HYDROXIDE 2,400 MG/30 ML CUP PO SCH (09:00)
[2023-01-30] MEDS: HEPARIN SODIUM,PORCINE 5,000 UNIT/ML 1 ML VIAL SQ SCH (09:00)
[2023-01-30] MEDS: FERROUS SULFATE 325 MG TAB PO SCH (09:22)
--- NOTE | 2023-01-30 10:34 | P.PN ---
Subjective Progress Note Date: 01/30/23 I am seeing this patient in consultation today 01/28/2023 in the intensive care unit status/post an elective T10 to pelvis decompression and fusion that was completed yesterday. Patient is a 72-year-old white female with past medical history significant for chronic lumbar back pain, coronary artery disease with previous stent to the left main and RCA, diabetes mellitus, hyperlipidemia, hypertension, iron deficiency anemia, COPD, among other things. Patient states that she's been experiencing chronic lumbar back pain over the last several years. 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 For the past 3 years, however, symptoms have progressively become worse. She's been experiencing radiculopathy like symptoms down bilateral legs. Denies urine or fecal incontinence. A CT of the thoracic and lumbar spine without contrast done back in October of this year showed multilevel lumbar central stenosis and multilevel degenerative disc disease of t he thoracic spine without evidence of herniation or central stenosis. Patient was brought in for an elective T10 to pelvis decompression and fusion yesterday. No immediate perioperative complications reported. Patient was extubated successfully in recovery. Patient is currently sitting up in the chair, on 2 L/m nasal cannula, in no acute distress. Chest x-ray shows bilateral lower lobe atelectasis. She is getting ready to go down for her follow up postoperative lumbar CT. Neurovascular status of the lower extremities appears intact. There is some post-surgical incisional pain reported. Incisional dressing appears clean, dry, and intact. Postoperative CBC shows a WBC count of 12.7, hemoglobin 11.2, hematocrit 34.1, platelet 238. BMP postoperatively shows sodium 135, potassium 4.4, chloride 104, serum bicarbonate 20, BUN 14, creatinine 0.61, glucose 224. Lactated Ringer's infusing at 20 mg per hour. SCDs and Rusty hose are on. Patient is hemodynamically stable. She will be monitored in the intensive care unit overnight. The patient is seen today 01/29/2023 in follow-up on the regular medical floor. She is awake and alert in no acute distress. She is maintaining O2 saturations in the 90s on 2 L/m per nasal cannula. She does have a loose nonproductive cough. She is congested. She is working with the incentive spirometer. White count 10.1. Hemoglobin 8.9. Platelets 197. Glucose 192. She is continuing on Symbicort, albuterol, cefazolin. Heparin for DVT prophylaxis. Surgical pain is better controlled. To be working with physical therapy. To be up with a walker. TLSO brace is pending. The patient is seen today 01/30/2023 in follow-up on the regular medical floor. She is currently resting comfortably in bed. Awake and alert in no acute distress. She denies any worsening shortness of breath, cough or congestion. She is maintaining O2 saturations in the 90s on 2 L/m per nasal cannula. She remains on Mucinex. Working with a flutter valve and the incentive spirometer. She is afebrile. Hemodynamically stable. Glucose level 200. She remains on cefazolin. Heparin for DVT prophylaxis. Continues to work with physical therapy. Objective - Vital Signs Vital signs: Vital Signs Temp 98.3 F 01/30/23 08:26 Pulse 72 01/30/23 07:16 Resp 16 01/30/23 07:16 BP 126/57 01/30/23 07:16 Pulse Ox 93 L 01/30/23 08:51 FiO2 Intake & Output 01/29/23 01/30/23 01/30/23 18:59 06:59 18:59 Output Total 1700 100 Balance -1700 -100 Output: Drainage 450 100 Back 450 100 Urine 1250 Uretheral (Blount) 350 Other: Voiding Method Indwelling Catheter Toilet # Voids 4 3 - Exam GENERAL EXAM: Alert, 72-year-old female, on 2 L nasal cannula, sitting in bed, comfortable in no apparent distress. HEAD: Normocephalic and atraumatic EYES: Normal reaction of pupils, equal size. NOSE: Clear with pink turbinates. THROAT: No erythema or exudates. NECK: No masses, no JVD. CHEST: No chest wall deformity. LUNGS: Equal air entry with no crackles, wheeze, rhonchi or dullness. No con versational dyspnea. CVS: S1 and S2 normal with no audible murmur, regular rhythm. No extra heart s ounds ABDOMEN: No hepatosplenomegaly, active bowel sounds, no guarding or rigidity. SPINE: Postoperative incisional dressing is clean, dry. Incision appears approximated. SKIN: No rashes CENTRAL NERVOUS SYSTEM: No focal deficits, tone is normal in all 4 extremities. Lower extremity strength grade 5/5 bilaterally. EXTREMITIES: There is no peripheral edema, clubbing, or cyanosis. Peripheral pulses are intact. - Labs CBC & Chem 7: 01/29/23 07:10 01/28/23 05:26 Labs: Abnormal Lab Results - Last 24 Hours (Table) 01/29/23 01/29/23 01/29/23 Range/Units 07:10 11:08 16:10 WBC 10.18 H (4.50-10.00) X 10*3/uL RBC 2.86 L (4.10-5.20) X 10*6/uL Hgb 8.9 L (12.0-15.0) d/dL Hct 27.7 L (37.2-46.3) % Monocytes # 1.28 H (0.20-1.00) X 10*3/uL NRBC/100 WBC Diff 0.02 H (0.00-0.01) X 10*3/uL POC Glucose (mg/dL) 192 H 200 H (70-110) mg/dL 01/29/23 01/30/23 Range/Units 19:39 06:01 WBC (4.50-10.00) X 10*3/uL RBC (4.10-5.20) X 10*6/uL Hgb (12.0-15.0) d/dL Hct (37.2-46.3) % Monocytes # (0.20-1.00) X 10*3/uL NRBC/100 WBC Diff (0.00-0.01) X 10*3/uL POC Glucose (mg/dL) 180 H 200 H (70-110) mg/dL Assessment and Plan Assessment: Status postoperative day #3 following a T10 to pelvis decompression and fusion. No immediate perioperative complications reported. Lumbar stenosis/spondylosis with radiculopathy Hypomagnesemia Mild leukocytosis, likely reactive from surgery Coronary artery disease, with previous PCI/stent to the left main and RCA Diabetes mellitus type 2 Hyperlipidemia Benign essential hypertension History of iron deficiency anemia History of COPD, stable Chronic ongoing tobacco dependence, currently smokes one half pack per day Plan: The patient was seen and evaluated Labs and medications reviewed Titrate the FiO2 as tolerated Increase her activity as tolerated Working with physical therapy Plan is for subacute rehabilitation at discharge I have personally seen and examined the patient, performed the documentation and the assessment and plan as written. Number of minutes spent on the visit: 10.
[2023-01-30] MEDS: LOSARTAN 50 MG TAB PO SCH (10:39)
--- NOTE | 2023-01-30 11:07 | P.DS ---
Providers Date of admission: 01/27/23 05:34 Expected date of discharge: 01/30/23 Attending physician: Olvin Garcia DO Consults: 01/27/23 13:53 Consult Physician Routine Consulting Provider: Angelina Olivares Consult Reason/Comments: medical management Do you want consulting provider notified?: Yes 01/27/23 17:03 Consult Physician Routine Consulting Provider: Yasmany Fletcher Reason/Comments: icu management Do you want consulting provider notified?: Yes Primary care physician: Denis Garza MD Hospital Course: Date of admission: 01/27/2023 Date of discharge: 01/30/2023 Admission diagnosis: 1. L1-S1 SPONDYLOSIS, SEVERE WITH SEVERE STENOSIS 2. NEUROGENIC CLAUDICATION 3. LOW BACK PAIN 4. LE WEAKNESS Discharge diagnosis: Same Attending physician: Dr. Garcia Surgical procedures: [id number] decompression and fusion Brief history: Patient is a 72-year-old female with a history of L1S1 spondylosis with severe stenosis; low back pain; lower extremity weakness; neurogenic claudication. At this point patient has failed conservative treatment measures and has opted to proceed with a elective [id number] decompression and fusion. Hospital course: Details of patient's surgery can be found in operative report. Patient tolerated the procedure well and was subsequently transported to orthopedic floor. Patient's orthopeidc and medical care was provided daily. Patient had daily laboratory tests performed for evaluation of overall blood counts. Patient had daily physical therapy to include strengthening range of motion as well as education with walker ambulation. Patient was noted to have a relatively uneventful postoperative course. Patient reported satisfactory pain control with oral pain medications by postoperative day 3. Patient showed satisfactory progress with physical therapy. Patient moved steadily through the program and had no difficulty meeting the goals by postoperative day 3. Given patient's otherwise satisfactory course and having met physical therapy goals, plan is to discharge patient home with health care on postoperative day 3. Discharge condition/disposition: Patient will be discharged home with health services in stable condition. Discharge medications: Instructions are given on resumption of patient's normal daily medications per primary care recommendation, in addition patient will be prescribed [place] 10 mg/325 mg; gabapentin; Flexeril; Duricef; senna. Spine Discharge and Recovery Instructions Date of Surgery: 01/27/2023 Diagnosis: Lumbar spondylosis Procedure: [id number] decompression and fusion Medications: See medication list All medication refills should be obtained through your primary care doctor or your clinic spine surgeon. Please discuss prescription refills at your follow up appointment. Do not call the hospital for medication refills. Dressing: Leave your dressing in place for a total of 5 days post operatively. Then you may remove your dressing and leave open to air. Keep the area clean and if not able to keep area clean, then cover with sterile gauze and tape. Showering: You may shower 3 days after your procedure allowing soap and water to run over incision. Do not scrub. Do not soak. Blot dry. Follow up: Please confirm a follow up appointment with your surgeon 3 weeks post operatively. Please make an appointment to follow up with your PCP in 1-2 weeks after surgery for evaluation 3 phase, 3-week plan POST OP WEEKS 1-3 1. Lifting/carrying/pushing/pulling limited to less than 5 pounds. 2. Do not sit for longer than 15 minutes at one time. Get up and walk around. Prolonged sitting is NOT advised. If you lay down, see if you can tolerate laying down on you front (belly side) 3. Walk for periods of 15 minutes = 1 mile but no longer; do it multiple times times each day. 4. Ice your low back after activity. POST OP WEEKS 3-6 1. Lifting limited to less than 20 pounds. 2. Do not sit for longer than 30 minutes at a time. Frequently change positions. Use a sit-to stand workstation or take frequent breaks from sitting if you have returned to work. 3. Walk for 30 minutes each day. If possible, do these three or more times a day POST OP WEEKS 6+ At your 6-week appointment we will give you a physical therapy referral to focus on a core stabilization and strengthening program. You should also work on leg & buttock strengthening, hamstring & quadriceps stretching, and continue a low impact aerobic activity program such as swimming, walking, or riding a stationary bicycle. During the initial 6 weeks after your surgery, you are at the highest risk of re-injuring your spine. You should generally avoid BLTs (bending, lifting and twisting combination motions) and follow the above guidelines to reduce the chance of reinjury. You can anticipate post op appointments in our office at approximately 3 weeks and 6 weeks after your surgery. INCISION CARE: If your incision is not draining you do NOT need to cover it with a dressing. Keep your incision clean, dry and intact. In most cases, we apply skin glue, chema or sutures to the incision at the time of surgery. This will be like a crust or have the appearance of a scab and will fall off in time on its own. The stitches or chema need to be removed at 3 weeks post op appointment. You may begin to shower 3 days after surgery (this allows the glue to zavala well). However, please avoid scrubbing the incision site or peeling off any of the skin glue. This will ensure optimal healing of your incision. Also, during this time avoid soaking the incision area in water - this includes swimming pools, hot tubs or baths. No ointments, lotions or oils on the incision until your surgeon allows. Leave chema, sutures or glue in place. Neurological dysfunction that comes on suddenly can also be a sign of a stroke. Below some common symptoms of a stroke are listed: B - balance difficulty such as sudden onset walking or leaning to one side - NEW E - eye problem such as sudden double vision or trouble seeing on one side - NEW F - Facial weakness or numbness on one side - NEW A - Arm or leg weakness or numbness on one side - NEW S - Slurred speech or difficulty with word finding - NEW T - Time is BRAIN! Call 911 as soon as you recognize these symptoms Diet: Consume a regular diet rich in vegetables and lean protein such as chicken or fish. You should consume in a ratio of approximately 20% fats|40% carbohydrates|40%protein. Vegetables, sweet potatoes, brown rice or quinoa are examples of good carbohydrates. Chips, white bread, cookies and sweets/sugar are examples of bad carbohydrates. Limit your bad carbs, go wild with good carbs. 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 (1) Get Active. Physical activity can help people lose weight, control high blood pressure and cholesterol, feel emotionally better, and sleep better. (2) Control Cholesterol. Avoid a diet high in saturated fat, trans fat, & cholesterol. Limit whole milk & cream, ice cream, butter, egg yolks, processed meats (like sausage and hot dogs), and fatty meats. Choose healthy foods that are low in saturated fat, trans fat and cholesterol which include: Fruits and vegetables, fiber rich grain products (like whole grain pasta and brown rice), lean meat such as chicken, fish, nuts, seeds, and legumes. (3) Eat Better. Eat small portions. Shop at the grocery with a list and do not stray from it. Tips for a healthy diet include: Limit sodium intake to less than 1500mg daily, avoid prepackaged, processed, and fast foods, choose a diet rich in fruits, vegetables, and whole grain, high fiber foods, and limit saturated & cholesterol in your diet. (4) Manage Blood Pressure. If you have high blood pressure, you should have a cuff at home so that you can check your blood pressure regularly. Be sure you have a good cuff. An arm one is generally better than a wrist one. Bring the cuff to a doctor's appointment to validate that the measurements that your cuff are taking are accurate. Take your blood pressure twice daily when you are sitting down and relaxing. Record the numbers in a log and bring this log with you to your doctors' appointments. (5) Lose Weight if your BMI is above 25. A healthy BMI is between 19-25. To calculate Your BMI, you may use a Standard BMI Calculator on the NIH BMI website: <www.nhlbi.nih.gov/guidelines/obesity/BMI/bmicalc.htm>. Weigh oneself daily. If you are overweight, set a goal to lose weight. A pound a week loss if needed is a good target. (6) Reduce Blood Sugar. Limit foods and liquids with "added sugars." (Added sugars include sucrose, fructose, glucose, maltose, dextrose, high fructose corn syrup, corn syrup, concentrated fruit juice and honey). (7) Stop Smoking. If you smoke, quitting smoking is one of the best things that you can do for your health. Smoking increases your risk of heart attack, stroke, and peripheral vascular disease, which is a build-up of plaque in your arteries. Please discard all the cigarettes and lighters in your house. Have a plan for what you will do when you have the urge to smoke. Direct and second- hand smoke shortens your life as well as the lives of your family, friends and others around you. For your health and the health of those around you, please consider quitting! Proper Bending Body Mechanics: Maintain a wide stance with one foot slightly in front of the other. Keep your back straight. Bend utilizing the strength in your hips and knees. Do not bend at the waist. Maintain the lifted object at your waist-level close to your body. Avoid lifting weight that causes immediately pain or pain anywhere in the body afterwards. Smoking/Nicotine If there was ever one thing that you could do to increase your overall health, decrease your risk of cardiovascular problems by about 39% the second you make the choice, it is to STOP SMOKING. Your body's most instant gratification is the second you stop smoking. We have all heard the studies, read the articles but it is true, smoking is extremely bad for your overall health, and moreover it is detrimental to your bone health. Nicotine, IN ANY FORM, kills bone cells, prevents your body from healing fractures, and significantly prolongs healing after surgery. In spine surgery specifically, it increases your risk of not healing your bones to create a fusion and increases your risk of having a revision surgery due to this up to 60%. I know it is hard. I know it feels impossible. But there are ways. Take control of your life. We are here to help you through it. And when you are ready, ask us and we can direct you to help if you desire. Use the START Plan to Quit Smoking (please visit the Helpguide.org website listed below for more information): S = Set a quit date. Choose a date within the next 2 weeks, so you have enough time to prepare without losing your motivation to quit. If you mainly smoke at work, quit on the weekend, so you have a few days to adjust to the change. T = Tell family, friends, and co-workers that you plan to quit. Let your friends and family in on your plan to quit smoking and tell them you need their support and encouragement to stop. Look for a quit teer who wants to stop smoking as well. You can help each other get through the rough times. A = Anticipate and plan for the challenges you'll face while quitting. Most people who begin smoking again do so within the first 3 months. You can help yourself make it through by preparing ahead for common challenges, such as nicotine withdrawal and cigarette cravings. R = Remove cigarettes and other tobacco products from your home, car, and work. Throw away all your cigarettes (no emergency pack!), lighters, ashtrays, and matches. Wash your clothes and freshen up anything that smells like smoke. Shampoo your car, clean your drapes and carpet, and steam your furniture. T = Talk to your doctor about getting help to quit. Your doctor can prescribe medication to help with withdrawal and suggest other alternatives. If you can't see a doctor, you can get many products over the counter at your local pharmacy or grocery store, including the nicotine patch, nicotine lozenges, and nicotine gum. Resources for Quitting Smoking: <https://w .[place].gov/documents/[facility]/Quit_Tobacco_Resources_for_patients_313480_7.pdf> Supplementation: Take recommended dosages of Vitamin D and Calcium to help fortify your bones and help them to heal. See your health maintenance packet for dosages and recommended levels. DVT/VTE prophylaxis: You will be given compression stockings from the hospital. Wear these daily for the first two weeks after surgery. You may take them off at night. You may be prescribed a medication to help thin your blood. Take this as directed. If you are not prescribed this medication, early and frequent ambulation has been shown to be the best prophylaxis to deep vein thrombosis and sequelae related to this event. Assessment: 1. L1-S1 SPONDYLOSIS, SEVERE WITH SEVERE STENOSIS 2. NEUROGENIC CLAUDICATION 3. LOW BACK PAIN 4. LE WEAKNESS Procedures: [id number] decompression and fusion Patient Condition at Discharge: Good Plan - Discharge Summary Discharge Rx Participant: No New Discharge Prescriptions: New HYDROcodone/APAP 10-325MG [[place] 10-325] 1 tab PO Q6HR PRN #28 tab PRN Reason: Pain cefaDROXiL [Duricef] 500 mg PO Q12HR 5 Days #10 cap Gabapentin 300 mg PO TID #30 cap Cyclobenzaprine [Flexeril] 5 mg PO TID #21 tablet Sennosides/Docusate Sodium [Senna Plus 8.6-50 mg Softgel] 1 each PO DAILY #20 capsule No Action Omeprazole [PriLOSEC] 20 mg PO BID Losartan [Cozaar] 75 mg PO DAILY Aspirin [Adult Low Dose Aspirin EC] 81 mg PO HS Cyanocobalamin (Vitamin B-12) [Vitamin B-12] 1,000 mcg PO DAILY Rosuvastatin Calcium [Crestor] 40 mg PO HS Metoprolol Succinate [Toprol XL] 100 mg PO DAILY Albuterol Sulfate [Albuterol Sulfate Hfa] 1 - 2 puff PO RT-Q6H PRN PRN Reason: Shortness Of Breath Ferrous Sulfate [Feosol] 325 mg PO DAILY glipiZIDE [Glucotrol] 10 mg PO DAILY Fluticasone/Vilanterol [Breo Ellipta 100-25 Mcg Inhaler] 1 puff INHALATION RT-DAILY PRN PRN Reason: Shortness Of Breath Gabapentin [Neurontin] 300 mg PO TID Fluticasone Nasal [place] [Flonase Nasal [place]] 1 spray EA NOSTRIL DAILY PRN PRN Reason: Sinus Symptoms metFORMIN HCL 1,000 mg PO BID Discharge Medication List Aspirin [Adult Low Dose Aspirin EC] 81 mg PO HS 09/10/18 [History] Losartan [Cozaar] 75 mg PO DAILY 09/10/18 [History] Omeprazole [PriLOSEC] 20 mg PO BID 09/10/18 [History] glipiZIDE [Glucotrol] 10 mg PO DAILY 08/28/20 [History] Cyanocobalamin (Vitamin B-12) [Vitamin B-12] 1,000 mcg PO DAILY 07/29/21 [History] Fluticasone/Vilanterol [Breo Ellipta 100-25 Mcg Inhaler] 1 puff INHALATION RT- DAILY PRN 07/29/21 [History] Gabapentin [Neurontin] 300 mg PO TID 07/29/21 [History] Fluticasone Nasal [place] [Flonase Nasal [place]] 1 spray EA NOSTRIL DAILY PRN 02/05/22 [History] Metoprolol Succinate [Toprol XL] 100 mg PO DAILY 02/05/22 [History] Rosuvastatin Calcium [Crestor] 40 mg PO HS 02/05/22 [History] Albuterol Sulfate [Albuterol Sulfate Hfa] 1 - 2 puff PO RT-Q6H PRN 09/09/22 [History] metFORMIN HCL 1,000 mg PO BID 09/09/22 [History] Ferrous Sulfate [Feosol] 325 mg PO DAILY 01/23/23 [History] Cyclobenzaprine [Flexeril] 5 mg PO TID #21 tablet 01/30/23 [Rx] Gabapentin 300 mg PO TID #30 cap 01/30/23 [Rx] HYDROcodone/APAP 10-325MG [[place] 10-325] 1 tab PO Q6HR PRN #28 tab 01/30/23 [Rx] Sennosides/Docusate Sodium [Senna Plus 8.6-50 mg Softgel] 1 each PO DAILY #20 capsule 01/30/23 [Rx] cefaDROXiL [Duricef] 500 mg PO Q12HR 5 Days #10 cap 01/30/23 [Rx] Follow up Appointment(s)/Referral(s): [facility], [NON-STAFF] - 1 Week ([facility] will call you to arrange a visit) Olvin Garcia DO [Doctor of Osteopathic Medicine] - 10 Days Activity/Diet/Wound Care/Special Instructions: Spine Discharge and Recovery Instructions Keep silver foam dressing on until 02/01/2023. It is okay to remove dressing on 02/01/2023. Okay to shower directly over incision once dressing is removed. Date of Surgery: 01/27/2023 Diagnosis: Lumbar spondylosis Procedure: [id number] decompression and fusion Medications: See medication list All medication refills should be obtained through your primary care doctor or your clinic spine surgeon. Please discuss prescription refills at your follow up appointment. Do not call the hospital for medication refills. Dressing: Leave your dressing in place for a total of 5 days post operatively. Then you may remove your dressing and leave open to air. Keep the area clean and if not able to keep area clean, then cover with sterile gauze and tape. Showering: You may shower 3 days after your procedure allowing soap and water to run over incision. Do not scrub. Do not soak. Blot dry. Follow up: Please confirm a follow up appointment with your surgeon 3 weeks post operatively. Please make an appointment to follow up with your PCP in 1-2 weeks after surgery for evaluation 3 phase, 3-week plan POST OP WEEKS 1-3 1. Lifting/carrying/pushing/pulling limited to less than 5 pounds. 2. Do not sit for longer than 15 minutes at one time. Get up and walk around. Prolonged sitting is NOT advised. If you lay down, see if you can tolerate laying down on you front (belly side) 3. Walk for periods of 15 minutes = 1 mile but no longer; do it multiple times times each day. 4. Ice your low back after activity. POST OP WEEKS 3-6 1. Lifting limited to less than 20 pounds. 2. Do not sit for longer than 30 minutes at a time. Frequently change positions. Use a sit-to stand workstation or take frequent breaks from sitting if you have returned to work. 3. Walk for 30 minutes each day. If possible, do these three or more times a day POST OP WEEKS 6+ At your 6-week appointment we will give you a physical therapy referral to focus on a core stabilization and strengthening program. You should also work on leg & buttock strengthening, hamstring & quadriceps stretching, and continue a low impact aerobic activity program such as swimming, walking, or riding a stationary bicycle. During the initial 6 weeks after your surgery, you are at the highest risk of re-injuring your spine. You should generally avoid BLTs (bending, lifting and twisting combination motions) and follow the above guidelines to reduce the chance of reinjury. You can anticipate post op appointments in our office at approximately 3 weeks and 6 weeks after your surgery. INCISION CARE: If your incision is not draining you do NOT need to cover it with a dressing. Keep your incision clean, dry and intact. In most cases, we apply skin glue, chema or sutures to the incision at the time of surgery. This will be like a crust or have the appearance of a scab and will fall off in time on its own. The stitches or chema need to be removed at 3 weeks post op appointment. You may begin to shower 3 days after surgery (this allows the glue to zavala well). However, please avoid scrubbing the incision site or peeling off any of the skin glue. This will ensure optimal healing of your incision. Also, during this time avoid soaking the incision area in water - this includes swimming pools, hot tubs or baths. No ointments, lotions or oils on the incision until your surgeon allows. Leave chema, sutures or glue in place. Neurological dysfunction that comes on suddenly can also be a sign of a stroke. Below some common symptoms of a stroke are listed: B - balance difficulty such as sudden onset walking or leaning to one side - NEW E - eye problem such as sudden double vision or trouble seeing on one side - NEW F - Facial weakness or numbness on one side - NEW A - Arm or leg weakness or numbness on one side - NEW S - Slurred speech or difficulty with word finding - NEW T - Time is BRAIN! Call 911 as soon as you recognize these symptoms Diet: Consume a regular diet rich in vegetables and lean protein such as chicken or fish. You should consume in a ratio of approximately 20% fats|40% carbohydrates|40%protein. Vegetables, sweet potatoes, brown rice or quinoa are examples of good carbohydrates. Chips, white bread, cookies and sweets/sugar are examples of bad carbohydrates. Limit your bad carbs, go wild with good carbs. 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 (1) Get Active. Physical activity can help people lose weight, control high blood pressure and cholesterol, feel emotionally better, and sleep better. (2) Control Cholesterol. Avoid a diet high in saturated fat, trans fat, & cholesterol. Limit whole milk & cream, ice cream, butter, egg yolks, processed meats (like sausage and hot dogs), and fatty meats. Choose healthy foods that are low in saturated fat, trans fat and cholesterol which include: Fruits and vegetables, fiber rich grain products (like whole grain pasta and brown rice), lean meat such as chicken, fish, nuts, seeds, and legumes. (3) Eat Better. Eat small portions. Shop at the grocery with a list and do not stray from it. Tips for a healthy diet include: Limit sodium intake to less than 1500mg daily, avoid prepackaged, processed, and fast foods, choose a diet rich in fruits, vegetables, and whole grain, high fiber foods, and limit saturated & cholesterol in your diet. (4) Manage Blood Pressure. If you have high blood pressure, you should have a cuff at home so that you can check your blood pressure regularly. Be sure you have a good cuff. An arm one is generally better than a wrist one. Bring the cuff to a doctor's appointment to validate that the measurements that your cuff are taking are accurate. Take your blood pressure twice daily when you are sitting down and relaxing. Record the numbers in a log and bring this log with you to your doctors' appointments. (5) Lose Weight if your BMI is above 25. A healthy BMI is between 19-25. To calculate Your BMI, you may use a Standard BMI Calculator on the NIH BMI website: <www.nhlbi.nih.gov/guidelines/obesity/BMI/bmicalc.htm>. Weigh oneself daily. If you are overweight, set a goal to lose weight. A pound a week loss if needed is a good target. (6) Reduce Blood Sugar. Limit foods and liquids with "added sugars." (Added sugars include sucrose, fructose, glucose, maltose, dextrose, high fructose corn syrup, corn syrup, concentrated fruit juice and honey). (7) Stop Smoking. If you smoke, quitting smoking is one of the best things that you can do for your health. Smoking increases your risk of heart attack, stroke, and peripheral vascular disease, which is a build-up of plaque in your arteries. Please discard all the cigarettes and lighters in your house. Have a plan for what you will do when you have the urge to smoke. Direct and second- hand smoke shortens your life as well as the lives of your family, friends and others around you. For your health and the health of those around you, please consider quitting! Proper Bending Body Mechanics: Maintain a wide stance with one foot slightly in front of the other. Keep your back straight. Bend utilizing the strength in your hips and knees. Do not bend at the waist. Maintain the lifted object at your waist-level close to your body. Avoid lifting weight that causes immediately pain or pain anywhere in the body afterwards. Smoking/Nicotine If there was ever one thing that you could do to increase your overall health, decrease your risk of cardiovascular problems by about 39% the second you make the choice, it is to STOP SMOKING. Your body's most instant gratification is th e second you stop smoking. We have all heard the studies, read the articles but it is true, smoking is extremely bad for your overall health, and moreover it is detrimental to your bone health. Nicotine, IN ANY FORM, kills bone cells, prevents your body from healing fractures, and significantly prolongs healing after surgery. In spine surgery specifically, it increases your risk of not healing your bones to create a fusion and increases your risk of having a revision surgery due to this up to 60%. I know it is hard. I know it feels impossible. But there are ways. Take con trol of your life. We are here to help you through it. And when you are ready, ask us and we can direct you to help if you desire. Use the START Plan to Quit Smoking (please visit the Helpguide.org website listed below for more information): S = Set a quit date. Choose a date within the next 2 weeks, so you have enough time to prepare without losing your motivation to quit. If you mainly smoke at work, quit on the weekend, so you have a few days to adjust to the change. T = Tell family, friends, and co-workers that you plan to quit. Let your friends and family in on your plan to quit smoking and tell them you need their support and encouragement to stop. Look for a quit tere who wants to stop smoking as well. You can help each other get through the rough times. A = Anticipate and plan for the challenges you'll face while quitting. Most people who begin smoking again do so within the first 3 months. You can help yourself make it through by preparing ahead for common challenges, such as nicotine withdrawal and cigarette cravings. R = Remove cigarettes and other tobacco products from your home, car, and work. Throw away all your cigarettes (no emergency pack!), lighters, ashtrays, and matches. Wash your clothes and freshen up anything that smells like smoke. Shampoo your car, clean your drapes and carpet, and steam your furniture. T = Talk to your doctor about getting help to quit. Your doctor can prescribe medication to help with withdrawal and suggest other alternatives. If you can't see a doctor, you can get many products over the counter at your local pharmacy or grocery store, including the nicotine patch, nicotine lozenges, and nicotine gum. Resources for Quitting Smoking: <https://www.[place].gov/documents/[facility]/Quit _Tobacco_Resources_for_patients_313480_7.pdf> Supplementation: Take recommended dosages of Vitamin D and Calcium to help fortify your bones and help them to heal. See your health maintenance packet for dosages and recommended levels. DVT/VTE prophylaxis: You will be given compression stockings from the hospital. Wear these daily for the first two weeks after surgery. You may take them off at night. You may be prescribed a medication to help thin your blood. Take this as directed. If you are not prescribed this medication, early and frequent ambulation has been shown to be the best prophylaxis to deep vein thrombosis and sequelae related to this event. Discharge Disposition: HOME WITH HOME HEALTH SERVICES
--- NOTE | 2023-01-30 11:21 | P.PN ---
Subjective Progress Note Date: 01/30/23 No new complaints todya, patient is medically cleared for discharge. Gen: awake, alert HEENT: normocephalic, atraumatic, good hearing acuity, moist mucous membranes Resp: good air exchange, breathing comfortably with no accessory muscle use, clear to auscultation bilaterally CVS: good distal perfusion x 4, regular rate and rhythm without murmurs GI: soft, NTTP, ND : no SPT, no CVAT, june catheter is present MSK: Trace pitting edema, no clubbing Neuro: non-focal, moving all extremities Psych: cooperative, euthymic mood Hospital Course: 72-year-old woman with medical history of CAD status post stent in January 2022, hypertension, hyperlipidemia, diabetes, iron deficiency anemia, asthma, GERD presented for elective pelvis to T10 decompression and fusion. Medicine was consulted for medical management. Postoperatively, patient is noted to be afebrile, 142/84, heart rate 65, 98% on 2 L nasal cannula. She has a central line in the right internal jugular, recently removed arterial line. Only available lab work is blood glucose which ranges from 131-237. Her most recent hemoglobin is noted to be 14 on 12/30. Postoperative lumbar x-ray shows intraoperative surgical changes. Chest x-ray shows right-sided central line in good place, bilateral lower lobe atelectasis. Assessment/plan: Acute blood loss anemia, expected outcome of surgery Iron deficiency anemia -CBC ordered -A.m. CBC ordered, BMP, magnesium ordered -Magnesium replaced today -Resume oral iron Hypertension -Resume patient's metoprolol 100 mg daily -Resume patient's losartan 75 mg daily -We will add when necessary blood pressure medication if this does not resolve her hypertension Diabetes type 2 with hyperglycemia -Holding patient's home glipizide, metformin -Add low-dose sliding scale insulin and glucose monitoring Hyperlipidemia Asthma without exacerbation CAD GERD without esophagitis -Holding patient's aspirin until cleared by orthopedic surgery -Remainder medications reconciled Patient is full code Objective - Vital Signs Vital signs: Vital Signs Temp 98.3 F 01/30/23 08:26 Pulse 72 01/30/23 07:16 Resp 16 01/30/23 07:16 BP 126/57 01/30/23 07:16 Pulse Ox 93 L 01/30/23 08:51 FiO2 Intake & Output 01/29/23 01/30/23 01/30/23 18:59 06:59 18:59 Output Total 1700 100 Balance -1700 -100 Output: Drainage 450 100 Back 450 100 Urine 1250 Uretheral (June) 350 Other: Voiding Method Indwelling Catheter Toilet # Voids 4 3 - Labs CBC & Chem 7: 01/29/23 07:10 01/28/23 05:26 Labs: Abnormal Lab Results - Last 24 Hours (Table) 01/29/23 01/29/23 01/30/23 Range/Units 16:10 19:39 06:01 POC Glucose (mg/dL) 200 H 180 H 200 H (70-110) mg/dL
[2023-01-30 11:24] LABS: Glucose,Whole Blood 187 mg/dL (70-110)
[2023-01-30 11:26] LABS: Basophils % (A) 0 %; Eosinophils # (A) 0.1 k/uL (0-0.7); Eosinophils % (A) 1 %; HCT 28.5 % (34.0-46.0); HGB 9.3 gm/dL (11.4-16.0); Lymphocytes # (A) 1.6 k/uL (1.0-4.8); Lymphocytes % (A) 20 %; MCH 31.4 pg (25.0-35.0); MCHC 32.5 g/dL (31.0-37.0); MCV 96.8 fL (80.0-100.0); Mean Platelet Volume 7.2; Monocytes # (A) 0.7 k/uL (0-1.0); Monocytes % (A) 9 %; Neutrophils # (A) 5.4 k/uL (1.3-7.7); Neutrophils % (A) 68 %; Platelet Count 225 k/uL (150-450); RBC 2.95 m/uL (3.80-5.40); RDW 13.8 % (11.5-15.5)
[2023-01-30 13:23] VITALS: BP 142/95; PULSE 81; RESP 17; TEMP 96.7
--- NOTE | 2023-01-30 15:43 | P.PN ---
Subjective Progress Note Date: 01/30/23 Principal diagnosis: Lumbar spondylosis Patient was seen at bedside this morning sitting up in chair with dressing over lumbar spine. Patient says she is hoping your home later today. Patient says she has worked daily with physical therapy and has noticed improvement daily. Patient says she has urinated daily without issue. Patient says she has not had bowel movement yet, however, patient says she has been passing gas. Patient denies any other risks this time. Patient denies chest pain, fever, shortness of breath, nausea, vomiting, change in vision, loss of bowel/bladder control. Objective - Vital Signs Vital signs: Vital Signs Temp 98.3 F 01/30/23 08:26 Pulse 72 01/30/23 07:16 Resp 16 01/30/23 07:16 BP 126/57 01/30/23 07:16 Pulse Ox 93 L 01/30/23 08:51 FiO2 Intake & Output 01/29/23 01/30/23 01/30/23 18:59 06:59 18:59 Output Total 1700 100 Balance -1700 -100 Output: Drainage 450 100 Back 450 100 Urine 1250 Uretheral ([place]) 350 Other: Voiding Method Indwelling Catheter Toilet # Voids 4 3 - Exam Silver foam dressing present over spine minimal spotting of this time. Negative for any drainage. Incision appears to be healing well at this time. Sensation is equal, symmetric, bilaterally intact at the upper and lower extremities. There is some fair amount of tenderness to the patient over incision. Nontender to palpation throughout rest of exam. Patient has full range of motion throughout bilateral upper extremities on exam. There is some limited range of motion bilaterally in the hips and flexion/extension due to referred low back pain. Neurovascular status intact. Radial pulse intact, 2+ bilaterally. Negative Homans bilaterally. - Labs CBC & Chem 7: 01/30/23 11:10 01/28/23 05:26 Labs: Abnormal Lab Results - Last 24 Hours (Table) 01/29/23 01/29/23 01/29/23 Range/Units 07:10 11:08 16:10 WBC 10.18 H (4.50-10.00) X 10*3/uL RBC 2.86 L (4.10-5.20) X 10*6/uL Hgb 8.9 L (12.0-15.0) d/dL Hct 27.7 L (37.2-46.3) % Monocytes # 1.28 H (0.20-1.00) X 10*3/uL NRBC/100 WBC Diff 0.02 H (0.00-0.01) X 10*3/uL POC Glucose (mg/dL) 192 H 200 H (70-110) mg/dL 01/29/23 01/30/23 Range/Units 19:39 06:01 WBC (4.50-10.00) X 10*3/uL RBC (4.10-5.20) X 10*6/uL Hgb (12.0-15.0) d/dL Hct (37.2-46.3) % Monocytes # (0.20-1.00) X 10*3/uL NRBC/100 WBC Diff (0.00-0.01) X 10*3/uL POC Glucose (mg/dL) 180 H 200 H (70-110) mg/dL Assessment and Plan Assessment: 1. L1-S1 SPONDYLOSIS, SEVERE WITH SEVERE STENOSIS 2. NEUROGENIC CLAUDICATION 3. LOW BACK PAIN 4. LE WEAKNESS - Postop day #3 status post [id number] decompression and fusion Plan: 1. L1-S1 SPONDYLOSIS, SEVERE WITH SEVERE STENOSIS; NEUROGENIC CLAUDICATION; LOW BACK PAIN; LE WEAKNESS - surgery performed 01/27/2023 [id number] decompression and fusion. Patient stable at bedside this morning. Discharge home today 2. Appreciate medical management 3. Pain management - Tylenol; [place]; gabapentin 4. DVT prophylaxis - mechanical 5. GI prophylaxis - Protonix; senna 6. PT/OT - weightbearing as tolerated with walker as needed 7. Encourage incentive spirometer use 8. Discharge planning - home today Time with Patient: Less than 30
== END 2023-01-30 15:07 | disposition home health service (06) | DRG 454 ==
LOC: 2ORMAIN 05:34 → EDSTATUS 07:30 → 2SICU 15:07 → 4SSUR 01-28 15:21
PROVIDERS: ADMIT Orthopaedic Surgery; ATTEND Orthopaedic Surgery
PROC: 0RG7071 Fusion of 2 to 7 Thoracic Vertebral Joints with Autologous Tissue Substitute, Posterior Approach, Posterior Column, Open Approach (ICD-10-PCS; 2023-01-27)
PROC: 0SG1071 Fusion of 2 or more Lumbar Vertebral Joints with Autologous Tissue Substitute, Posterior Approach, Posterior Column, Open Approach (ICD-10-PCS; 2023-01-27)
PROC: 0SG30AJ Fusion of Lumbosacral Joint with Interbody Fusion Device, Posterior Approach, Anterior Column, Open Approach (ICD-10-PCS; 2023-01-27)
PROC: 0SG3071 Fusion of Lumbosacral Joint with Autologous Tissue Substitute, Posterior Approach, Posterior Column, Open Approach (ICD-10-PCS; 2023-01-27)
PROC: 0RG70AJ Fusion of 2 to 7 Thoracic Vertebral Joints with Interbody Fusion Device, Posterior Approach, Anterior Column, Open Approach (ICD-10-PCS; 2023-01-27)
PROC: 0RGA0AJ Fusion of Thoracolumbar Vertebral Joint with Interbody Fusion Device, Posterior Approach, Anterior Column, Open Approach (ICD-10-PCS; 2023-01-27)
PROC: 0RGA071 Fusion of Thoracolumbar Vertebral Joint with Autologous Tissue Substitute, Posterior Approach, Posterior Column, Open Approach (ICD-10-PCS; 2023-01-27)
PROC: 01NB0ZZ Release Lumbar Nerve, Open Approach (ICD-10-PCS; 2023-01-27)
PROC: 01NR0ZZ Release Sacral Nerve, Open Approach (ICD-10-PCS; 2023-01-27)
PROC: 0QH304Z Insertion of Internal Fixation Device into Left Pelvic Bone, Open Approach (ICD-10-PCS; 2023-01-27)
PROC: 0QH204Z Insertion of Internal Fixation Device into Right Pelvic Bone, Open Approach (ICD-10-PCS; 2023-01-27)
PROC: 0QS00ZZ Reposition Lumbar Vertebra, Open Approach (ICD-10-PCS; 2023-01-27)
PROC: 8E0WXBZ Computer Assisted Procedure of Trunk Region (ICD-10-PCS; 2023-01-27)
PROC: 30233J1 Transfusion of Nonautologous Serum Albumin into Peripheral Vein, Percutaneous Approach (ICD-10-PCS; 2023-01-27)
PROC: 0SG10AJ Fusion of 2 or more Lumbar Vertebral Joints with Interbody Fusion Device, Posterior Approach, Anterior Column, Open Approach (ICD-10-PCS; principal; 2023-01-27 07:30)
DX: M47.26 Other spondylosis with radiculopathy, lumbar region (principal); D62 Acute posthemorrhagic anemia; M41.56 Other secondary scoliosis, lumbar region; I10 Essential (primary) hypertension; E11.65 Type 2 diabetes mellitus with hyperglycemia; D72.828 Other elevated white blood cell count; D50.9 Iron deficiency anemia, unspecified; M48.062 Spinal stenosis, lumbar region with neurogenic claudication; M47.27 Other spondylosis with radiculopathy, lumbosacral region; M48.07 Spinal stenosis, lumbosacral region; M51.16 Intervertebral disc disorders with radiculopathy, lumbar region; G47.9 Sleep disorder, unspecified; M25.78 Osteophyte, vertebrae; M51.14 Intervertebral disc disorders with radiculopathy, thoracic region; J44.89 Other specified chronic obstructive pulmonary disease; G89.29 Other chronic pain; I25.10 Atherosclerotic heart disease of native coronary artery without angina pectoris; E78.5 Hyperlipidemia, unspecified; R01.1 Cardiac murmur, unspecified; E83.42 Hypomagnesemia; F17.210 Nicotine dependence, cigarettes, uncomplicated; K21.9 Gastro-esophageal reflux disease without esophagitis; Z95.828 Presence of other vascular implants and grafts; Z95.5 Presence of coronary angioplasty implant and graft; Z79.84 Long term (current) use of oral hypoglycemic drugs; Z79.899 Other long term (current) drug therapy; Z79.82 Long term (current) use of aspirin; Z85.828 Personal history of other malignant neoplasm of skin
CPT/HCPCS: 71045; 72100; 72131; 80048; 83735; 85025; 86891; 94667

== ENCOUNTER → 2023-03-17 | Outpatient (CLI) | payer MEDICARE, OTHER ==
--- NOTE | 2023-03-17 12:07 | XR ---
EXAMINATION TYPE: XR chest 2V DATE OF EXAM: 03/17/2023 COMPARISON: 01/27/2023 TECHNIQUE: PA and lateral views submitted. HISTORY: Shortness of breath FINDINGS: The lungs are clear and there is no pneumothorax, pleural effusion, or focal pneumonia. Heart size normal and no overt failure. Osseous structures demonstrate hypertrophic and degenerative changes of the spine. Postsurgical changes of the pubic bowel. AC joint arthropathy. Emphysematous changes. IMPRESSION: 1. No acute process.
== END | disposition home or self-care (01) ==
LOC: RADXRMAIN 11:35
PROVIDERS: ATTEND Orthopaedic Surgery
DX: R06.02 Shortness of breath (principal)
CPT/HCPCS: 71046

== ENCOUNTER → 2023-06-04 | Outpatient (CLI) | payer MEDICARE, OTHER ==
--- NOTE | 2023-06-05 08:46 | MM ---
Reason for Exam: Screening (asymptomatic). Last mammogram was performed 1 year(s) and 7 month(s) ago. Patient History: Menarche at age 12. First Full-Term at age 17. Postmenopausal. Patient has history of breast feeding. Other cancer. Excisional Biopsy on the Left side. Daughter had breast cancer, age 37. Risk Values: Maritza 5 year model risk: 3.5%. NCI Lifetime model risk: 8.0%. Prior Study Comparison: 07/07/2016 Bilateral Screening Mammogram, [facility]. 01/11/2018 Bilateral Screening Mammogram, [facility] 01/26/2019 Bilateral Screening Mammogram, [facility]. 03/21/2020 Bilateral Screening Mammogram, [facility]. 10/30/2021 Bilateral MG 3D screening mammo w/cad, [facility]. Tissue Density: The breasts are heterogeneously dense, which may obscure small masses. Findings: Analyzed By CAD. There is no suspicious group of microcalcifications or new suspicious mass in either breast. Overall Assessment: Benign, BI-RAD 2 Management: Screening Mammogram of both breasts in 1 year. . Patient should continue monthly self-breast exams. A clinical breast exam by your physician is recommended on an annual basis. This exam should not preclude additional follow-up of suspicious palpable abnormalities. Note on Maritza scores and lifetime risk: 1. A Maritza score greater than 3% is considered moderate risk. If this is the case, consider specialist referral to assess eligibility for a risk reducing agent. 2. If overall lifetime risk for the development of breast cancer is 20% or higher, the patient may qualify for future screening with alternating mammogram and breast MRI. Electronically signed and approved by: Raymond Moser M.D. Radiologis
== END | disposition home or self-care (01) ==
LOC: RADMAMWWP 10:23
PROVIDERS: ATTEND Internal Medicine
DX: Z12.31 Encounter for screening mammogram for malignant neoplasm of breast (principal); Z80.3 Family history of malignant neoplasm of breast; Z78.0 Asymptomatic menopausal state
CPT/HCPCS: 77063; 77067

== ENCOUNTER → 2023-06-04 | Outpatient (CLI) | payer MEDICARE, OTHER ==
--- NOTE | 2023-06-04 12:38 | FL ---
EXAMINATION TYPE: FL UGI air w esophagus DATE OF EXAM: 06/04/2023 11:23 AM COMPARISON: NONE CLINICAL HISTORY: Difficulty in swallowing. 1:00 FLUORO, LBS236.81 mGym2, Preliminary view of the abdomen reveals a normal bowel gas pattern. Upper GI examination was performed according to the air contrast technique. Barium and effervescent crystal was swallowed without difficulty or delay. Spinal hardware limits evaluation. Esophageal peristalsis and motility are within normal limits. The re is no evidence for esophagitis, intraluminal mass, hiatal hernia or gastroesophageal reflux. The stomach has a normal appearance in terms of its size, shape and location. No gastric filling defects or ulcer craters are seen. The duodenal bulb and sweep are also free of intraluminal lesion or ulce r crater. And single contrast cervical esophagram was also performed following the ingestion of thin liquid bar ium. There is no evidence for aspiration or penetration. No masses are seen. No filling defects ar e evident. IMPRESSION: Unremarkable evaluation.
== END | disposition home or self-care (01) ==
LOC: RADUSWWP 10:26
PROVIDERS: ATTEND Internal Medicine
DX: K21.9 Gastro-esophageal reflux disease without esophagitis (principal); R13.10 Dysphagia, unspecified
CPT/HCPCS: 74246

== ENCOUNTER → 2023-07-21 | Outpatient (CLI) | payer MEDICARE, OTHER ==
[2023-07-21 14:17] LABS: African American GFR (CKD) >90 (>60 ml/min/1.73 sqM); Blood Urea Nitrogen 16 mg/dL (7-17); Non-African American GFR(CKD) 87 (>60 ml/min/1.73 sqM)
--- NOTE | 2023-07-27 18:56 | CT ---
EXAMINATION TYPE: CT abdomen w con CT DLP: 718.8 mGycm, Automated exposure control for dose reduction was used. DATE OF EXAM: 07/21/2023 2:50 PM COMPARISON: CT abdomen pelvis most recent from CLINICAL INDICATION:Female, 73 years old with history of R10.9 UNSPECIFIED ABDOMINAL PAIN; Upper abdo latoya pain, constipation TECHNIQUE: Axial CT abdomen w con;Sagittal and coronal reformats were created on a separate workstat ion. Contrast used:100 mL of Isovue 300 with IV Contrast, (none if empty) Oral contrast used: with Oral Contrast (none if empty) FINDINGS: Study is limited by streak metal artifact long Major rods in the thoracic and lumbar spine and s acrum LOWER CHEST: Unremarkable ABDOMEN LIVER: Unremarkable GALLBLADDER AND BILE DUCTS: Unremarkable. PANCREAS: Unremarkable. SPLEEN: Unremarkable. ADRENAL GLANDS: Unremarkable. KIDNEYS AND URETERS: No evidence of hydronephrosis or renal calculus. The ureters are unremarkable. STOMACH AND BOWEL: Stomach and duodenum are unremarkable. No evidence of bowel obstruction. PERITONEUM/RETROPERITONEUM: No evidence of pneumoperitoneum or free fluid. VASCULATURE: No evidence of aortic aneurysm. MUSCULOSKELETAL: No acute osseous abnormalities LYMPH NODES: No gross evidence for lymphadenopathy. SOFT TISSUE/ABDOMINAL WALL: Unremarkable IMPRESSION: 1. No acute process
== END | disposition home or self-care (01) ==
LOC: RADCTMAIN 12:47
PROVIDERS: ATTEND Internal Medicine Hematology & Oncology
DX: I25.10 Atherosclerotic heart disease of native coronary artery without angina pectoris (principal); I10 Essential (primary) hypertension; D50.9 Iron deficiency anemia, unspecified; Z71.3 Dietary counseling and surveillance
CPT/HCPCS: 82565; 84520; 74160; 36415; Q9967

== ENCOUNTER → 2023-09-25 | Outpatient (CLI) | payer MEDICARE, OTHER ==
[2023-09-25 09:26] LABS: Basophils # (A) 0.1 k/uL (0-0.2); Basophils % (A) 1 %; Eosinophils # (A) 0.1 k/uL (0-0.7); Eosinophils % (A) 2 %; HCT 45.3 % (34.0-46.0); HGB 14.2 gm/dL (11.4-16.0); Hypochromasia Slight; Lymphocytes % (A) 34 %; MCH 29.8 pg (25.0-35.0); MCHC 31.4 g/dL (31.0-37.0); Monocytes # (A) 0.6 k/uL (0-1.0); Monocytes % (A) 10 %; Neutrophils # (A) 2.9 k/uL (1.3-7.7); Neutrophils % (A) 49 %; Platelet Count 262 k/uL (150-450); RBC 4.77 m/uL (3.80-5.40); RDW 13.8 % (11.5-15.5)
[2023-09-25 17:50] LABS: % Iron Saturation 12.63 (12.00-45.00); ALT 21 U/L (8-44); AST 20 U/L (13-35); Albumin 4.8 g/dL (3.8-4.9); Albumin/Globulin Ratio 2.09 Ratio (1.60-3.17); Alkaline Phosphatase 91 U/L (41-126); BUN/Creat Ratio 21.67 Ratio (12.00-20.00); Blood Urea Nitrogen 19.5 mg/dL (9.0-27.0); Calcium 9.8 mg/dL (8.7-10.3); Carbon Dioxide 25.4 mmol/L (21.6-31.8); Chloride 103 mmol/L (96-109); Chol/HDL Ratio 2.36 Ratio; Globulin 2.3 g/dL (1.6-3.3); Glucose 141 mg/dL (70-110); Iron 49 UG/DL (50-170); LDL Cholesterol,Calculated 45.3 mg/dL (0.0-131.0); Potassium 4.3 mmol/L (3.5-5.5); Sodium 141 mmol/L (135-145); Total Bilirubin 0.4 mg/dL (0.3-1.2); Total Iron Binding Capacity 388 UG/DL (228-460); Total Protein 7.1 g/dL (6.2-8.2)
== END | disposition home or self-care (01) ==
LOC: LABWHC1 08:52
PROVIDERS: ATTEND Internal Medicine
DX: E11.8 Type 2 diabetes mellitus with unspecified complications (principal); E61.1 Iron deficiency
CPT/HCPCS: 36415; 80053; 80061; 82607; 82746; 83036; 83540; 83550; 85025

== ENCOUNTER → 2024-06-14 | Outpatient (CLI) | payer MEDICARE, OTHER ==
--- NOTE | 2024-06-14 10:25 | CTL ---
EXAMINATION TYPE: CT Low Dose Lung DATE OF EXAM: 06/14/2024 10:16 AM COMPARISON: 12/03/2022 CLINICAL INDICATION: Female, 74 years old with history of Z12.2 F17.210 Z12.31, current smoker 1 PPD x50 years, History of tobacco use. TECHNIQUE: Low Dose CT Lung Screening, Low dose computed tomography scan was performed through the est at 1 millimeter thick sections and reconstructed images in the coronal plane at 1 mm thick sectio ns. IV CONTRAST USED: None. SCREENING VISIT: First visit CT DLP: 101.3 mGycm, Automated exposure control for dose reduction was used. CT CTDI: 2.7 mGy FINDINGS: CT DIAGNOSTIC QUALITY: Satisfactory LUNG NODULES: Not presentLeft lung: no nodules identified.Right lung: no nodules identified. LUNGS: COPD: Severity: Mild Fibrosis: Severity:None Lymph nodes: None Other findings: Parenchymal scarring left lung base. RIGHT PLEURAL SPACE: Effusion: None Calcification: None Thickening: None Pneumothorax: None LEFT PLEURAL SPACE: Effusion: None Calcification: None Thickening: None Pneumothorax: None HEART: * Size within normal limits. * No significant coronary artery calcifications. OTHER FINDINGS: Upper abdomen: No significant abnormality Bony thorax: Degenerative changes Supraclavicular region: No significant abnormalityOther: No significant abnormalityI IMPRESSION: 1. No clinically significant pulmonary nodules. 2. Mild emphysema. CT LUNG RAD AND CT CHEST RECOMMENDATION: Lung-Rad 1 Negative: Continue annual screening with LDCT in 12 months. S Modifier (other clinically significant findings): [facility], , 06/14/2024 10:22 AM
--- NOTE | 2024-06-14 10:44 | MM ---
Reason for Exam: Screening (asymptomatic). Last screening mammogram was performed 12 month(s) ago. Patient History: Menarche at age 12. First Full-Term at age 17. Postmenopausal. Patient has history of breast feeding. Other cancer. Excisional Biopsy on the Left side. Daughter had breast cancer, age 37. Risk Values: Maritza 5 year model risk: 3.5%. NCI Lifetime model risk: 7.1%. Prior Study Comparison: 03/21/2020 Bilateral Screening Mammogram, [facility]. 10/30/2021 Bilateral MG 3D screening mammo w/cad, [facility]. 06/04/2023 Bilateral MG 3D screening mammo w/cad, [facility]. Tissue Density: The breasts are heterogeneously dense, which may obscure small masses. Findings: Analyzed By CAD. Benign-appearing bilateral axillary lymph nodes are present. There are a few regional small benign-appearing round calcifications bilaterally redemonstrated. There is no suspicious group of microcalcifications or new suspicious mass in either breast. Overall Assessment: Benign, BI-RAD 2 Management: Screening Mammogram of both breasts in 1 year. . Patient should continue monthly self-breast exams. A clinical breast exam by your physician is recommended on an annual basis. This exam should not preclude additional follow-up of suspicious palpable abnormalities. Note on Maritza scores and lifetime risk: 1. A Maritza score greater than 3% is considered moderate risk. If this is the case, consider specialist referral to assess eligibility for a risk reducing agent. 2. If overall lifetime risk for the development of breast cancer is 20% or higher, the patient may qualify for future screening with alternating mammogram and breast MRI. [facility], , 06/14/2024 10:40 AM. Electronically signed and approved by: Abdirashid Hinton M.D.
== END | disposition home or self-care (01) ==
LOC: RADCTMAIN 09:49
PROVIDERS: ATTEND Internal Medicine
DX: Z12.31 Encounter for screening mammogram for malignant neoplasm of breast (principal); Z12.2 Encounter for screening for malignant neoplasm of respiratory organs; F17.210 Nicotine dependence, cigarettes, uncomplicated; J43.9 Emphysema, unspecified; R92.333 Mammographic heterogeneous density, bilateral breasts; Z78.0 Asymptomatic menopausal state; Z80.3 Family history of malignant neoplasm of breast
CPT/HCPCS: 71271; 77063; 77067